=== PATIENT | female | born 2000 | race Caucasian/White ===

== ENCOUNTER 2023-06-27 13:19 | Emergency (ER) | payer OTHER, SELFPAY ==
[2023-06-27 13:23] VITALS: BP 126/85; PULSE 90; RESP 20; TEMP 36.5; O2SAT 100; BMI 35.5
--- NOTE | 2023-06-27 13:34 | ED_ITS ---
HPI - General Adult General Chief complaint: Headache Stated complaint: MIGRAINE Time Seen by Provider: 06/27/23 13:27 Source: patient Mode of arrival: walk-in History of Present Illness HPI narrative: 23-year-old female presents for generalized headache. She states she gets these every month, she states it's hormonal. She's never gone to a neurologist or her family doctor about these. This one is worse than typical. It was not aassocia jocy with any trauma and she has not had a fever. No localized weakness. It's continuous and severe and light makes it worse. Related Data Home Medications Medication Instructions Recorded Confirmed No Known Home Medications 06/27/23 06/27/23 Allergies Allergy/AdvReac Type Severity Reaction Status Date / Time No Known Drug Allergies Allergy Verified 06/27/23 13:26 Review of Systems ROS Narrative A ten point review of systems is negative except as noted above. Exam Narrative Exam Narrative: Nurses note and vital signs reviewed and patient is not hypoxic. General: The patient laying in a darkened room in no apparent respiratory distress. Skin: Warm, dry, no pallor noted. There is no rash noted. Head: Normocephalic, atraumatic; neck supple, no nuchal rigidity Eye: Normal conjunctiva, no drainage, EOMI. PERRL Ears, Nose, Mouth, and Throat: oral mucosa is moist. Nares patent. Cardiovascular: Regular Rate and Rhythm Respiratory: Patient is in no distress, no accessory muscle use, lungs are clear to auscultation, no wheezing, rales or rhonchi Back: non-tender GI: soft and nontender Musculoskeletal: The patient has no evidence of calf tenderness, no pitting edema, symmetrical pulses noted bilaterally Neurological: A&O, normal speech; upper and lower extremity strength intact Psychiatric: Cooperative Constitutional Vital Signs, click to edit/add: Last Vital Signs Temp 97.7 F 06/27/23 13:23 Pulse 77 06/27/23 15:02 Resp 16 06/27/23 15:02 BP 121/76 06/27/23 15:02 Pulse Ox 98 06/27/23 15:02 O2 Del Method Room Air 06/27/23 13:23 Course Vital Signs Vital signs: Vital Signs Temperature 97.7 F 06/27/23 13:23 Pulse Rate 90 06/27/23 13:23 Respiratory Rate 20 06/27/23 13:23 Blood Pressure 126/85 06/27/23 13:23 Pulse Oximetry 100 06/27/23 13:23 Oxygen Delivery Method Room Air 06/27/23 13:23 Temperature 97.7 F 06/27/23 13:23 Pulse Rate 77 06/27/23 15:02 Respiratory Rate 16 06/27/23 15:02 Blood Pressure 121/76 06/27/23 15:02 Pulse Oximetry 98 06/27/23 15:02 Oxygen Delivery Method Room Air 06/27/23 13:23 Medical Decision Making MDM Narrative Medical decision making narrative: her workup including CAT scan of the brain is negative. She feels much better and is able to be discharged home. Treatment diagnosis and follow-up were discussed with the patient. Differential Diagnosis Differential Diagnosis: intracranial hemorrhage, sinusitis, migraine headache Lab Data Lab results reviewed: Yes I reviewed the patient's lab results Labs: Lab Results 06/27/23 Range/Units 13:46 WBC 15.0 H (4.0-11.0) 10^3/uL RBC 5.12 (4.20-5.40) 10^6/uL Hgb 10.9 L (12.0-16.0) g/dL Hct 36.3 (36.0-48.0) % MCV 70.9 L (81.0-99.0) fL MCH 21.3 L (26.7-34.0) pg MCHC 30.0 (29.9-35.2) g/dL RDW 18.6 H (11.0-15.0) % Plt Count 567 H (150-450) 10^3/uL MPV 9.6 (9.5-13.5) fL Neut % (Auto) 84.9 H (43.0-75.0) % Lymph % (Auto) 9.4 L (20.5-60.0) % [place] % (Auto) 3.9 (1.7-12.0) % Eos % (Auto) 0.5 L (0.9-7.0) % Baso % (Auto) 1.0 (0.2-2.0) % Neut # (Auto) 12.7 H (1.4-6.5) 10^3/uL Lymph # (Auto) 1.4 (1.2-3.8) 10^3/uL [place] # (Auto) 0.6 (0.3-0.8) 10^3/uL Eos # (Auto) 0.1 (0.0-0.7) 10^3/uL Baso # (Auto) 0.2 H (0.0-0.1) 10^3/uL Abs Immat Gran (auto) 0.04 H (0.00-0.03) 10^3/uL Imm/Tot Granulo (auto) 0.3 (0.0-0.5) % Sodium 137 (136-145) mmol/L Potassium 3.6 (3.5-5.1) mmol/L Chloride 104 (98-107) mmol/L Carbon Dioxide 24.2 (21.0-32.0) mmol/L Anion Gap 12.4 BUN 14.0 (7.0-18.0) mg/dL Creatinine 0.94 (0.55-1.02) mg/dL Est GFR ( Amer) >60 (>=60) Est GFR (Non-Af Amer) >60 (>=60) BUN/Creatinine Ratio 14.9 Glucose 99 (74-106) mg/dL Calcium 9.3 (8.5-10.1) mg/dL Serum HCG, Qual Negative (NEGATIVE) Imaging Data CT scan - head: Radiologist's impression: ITS Impressions Head CT 06/27/23 13:34 IMPRESSION: No acute intracranial process is noted. Electronically authenticated by: NITHIN CALDWELL Date: 06/27/2023 15:03 Discharge Plan Discharge Chief Complaint: Headache Clinical Impression: Headache Patient Disposition: Home, Self-Care Time of Disposition Decision: 15:26 Condition: Good Mode of Transportation: Private Vehicle Prescriptions / Home Meds: No Action No Known Home Medications Instructions: Acute Headache (ED) Stand Alone Forms: Portal Instructions Referrals: Physician,Non-Staff, MD [Primary Care Provider] - 1 week
--- NOTE | 2023-06-27 13:34 | CT_ITS ---
The [address] [address] Patient Name: LETICIA JOSE MRN: [id number] date: 2000 Sex: F Assigned Patient Location: ER Current Patient Location: ER Accession/Order Number: [id number] Exam Date: 06/27/2023 04:33 Report Date: 06/27/2023 15:03 At the request of: TAURUS SHIELDS Procedure: CT head/brain wo con CT head/brain wo con, 06/27/2023 4:33 AM EST INDICATION: Headache COMPARISON: There is no appropriate prior study for comparison. TECHNIQUE: Axial CT images of the brain from skull base to vertex, including portions of the face and sinuses, were obtained without contrast . Multiplanar reformatted images were generated and reviewed as needed. Dose reduction techniques were achieved by using automated exposure control and/or adjustment of mA and/or kV according to patient size and/or use of iterative reconstruction technique. FINDINGS: The cerebral sulci as well as ventricular system are appropriate for age. There is no intracranial mass, mass effect, midline shift, intra or extra-axial fluid collection or hemorrhage. The visualized portions of orbits, mastoid air cells as well as paranasal sinuses are unremarkable. There is no suspicious osteolytic or osteoblastic lesion. CT/CT head/brain wo con IMPRESSION: No acute intracranial process is noted. Electronically authenticated by: NITHIN CALDWELL Date: 06/27/2023 15:03
[2023-06-27 13:54] LABS: Basophils Absolute Auto 0.2 10^3/uL (0.0-0.1); Eosinophils Absolute Auto 0.1 10^3/uL (0.0-0.7); Eosinophils Percent Auto 0.5 % (0.9-7.0); Hematocrit 36.3 % (36.0-48.0); Hemoglobin 10.9 g/dL (12.0-16.0); Immature Granulocytes Abs Auto 0.04 10^3/uL (0.00-0.03); Immature Granulocytes Pct Auto 0.3 % (0.0-0.5); Lymphocytes Absolute Auto 1.4 10^3/uL (1.2-3.8); Lymphocytes Percent Auto 9.4 % (20.5-60.0); Mean Corpuscular Hemoglobin 21.3 pg (26.7-34.0); Mean Corpuscular Volume 70.9 fL (81.0-99.0); Mean Platelet Volume 9.6 fL (9.5-13.5); Monocytes Absolute Auto 0.6 10^3/uL (0.3-0.8); Monocytes Percent Auto 3.9 % (1.7-12.0); Neutrophils Absolute Auto 12.7 10^3/uL (1.4-6.5); Neutrophils Percent Auto 84.9 % (43.0-75.0); Platelet Count 567 10^3/uL (150-450); Red Blood Count 5.12 10^6/uL (4.20-5.40); Red Cell Distribution Width 18.6 % (11.0-15.0)
[2023-06-27 14:21] LABS: HCG Qualitative NEGATIVE (NEGATIVE)
[2023-06-27 14:24] VITALS: BP 119/79; PULSE 82; RESP 18; O2SAT 98
[2023-06-27 14:29] LABS: BUN Creatinine Ratio 14.9; Calcium 9.3 mg/dL (8.5-10.1); Carbon Dioxide 24.2 mmol/L (21.0-32.0); Estimated GFR (African America >60 (>=60); Estimated GFR (Non-African Ame >60 (>=60); Glucose 99 mg/dL (74-106)
[2023-06-27] MEDS: MORPHINE SULFATE 4 MG/ML VIAL IV (14:44)
[2023-06-27] MEDS: ONDANSETRON PF 4 MG/2 ML VIAL IV (14:44)
[2023-06-27 14:47] LABS: Anion Gap 12.4; Chloride 104 mmol/L (98-107); Potassium 3.6 mmol/L (3.5-5.1); Sodium 137 mmol/L (136-145)
[2023-06-27 14:51] VITALS: BP 128/82; PULSE 84; RESP 18; O2SAT 98
[2023-06-27 15:02] VITALS: BP 121/76; PULSE 77; RESP 16; O2SAT 98
[2023-06-27 15:31] VITALS: BP 115/68; PULSE 71; RESP 18; O2SAT 99
== END 2023-06-27 15:33 | disposition home or self-care (01) ==
PROVIDERS: Emergency Provider Emergency Medicine
DX: R51.9 Headache, unspecified (principal)
CPT/HCPCS: 36415; 70450; 80048; 84703; 85025; 96374; 96375; 99285; J2270; J2405

== ENCOUNTER 2024-01-20 10:31 | Emergency (ER) | payer OTHER, SELFPAY ==
[2024-01-20 10:45] VITALS: BP 110/53; PULSE 88; TEMP 36.6; O2SAT 99; BMI 32.0
--- OUTSIDE RECORDS SUMMARY | 2024-01-20 10:48 | XMS_ITS | CCD ---
Author Organization [facility] Care Team Providers Care Nurse Discharge Name Role Phone CHRISTOPHER ALESSANDRO Consulting Unavailable REQUEST, NONE LISTED Primary Care Unavaila ble CHRISTOPHER, ALESSANDRO Attending Unavailable CHRISTOPHER, ALESSANDRO Admitting Unavailable CHRISTOPHER, ALESSANDRO Consulting Unavailable REQUEST, NONE LISTED Primary Care Unavaila ble CHRISTOPHER, ALESSANDRO Attending Unavailable CHRISTOPHER, ALESSANDRO Admitting Unavailable ZieberNestor Consulting Unavailable KARASIK ., DR SANTANA Consulting Unavailabl e REQUEST, NONE LISTED Primary Care Unavaila ble CHRISTOPHER, ALESSANDRO Attending Unavailable CHRISTOPHER, ALESSANDRO Admitting Unavailable CHRISTOPHER, ALESSANDRO Consulting Unavailable PAMELA SCHILLING Consulting Unavailable CHRISTOPHER, ALESSANDRO Procedure Practitioner Unavailab CATE Torres Consulting Unavailable REQUEST, NONE LISTED Primary Care Unavaila ble CHRISTOPHER, ALESSANDRO Attending Unavailable CHRISTOPHER, ALESSANDRO Admitting Unavailable REQUEST, NONE LISTED Primary Care Unavaila ble CHRISTOPHER, ALESSANDRO Attending Unavailable CHRISTOPHER, ALESSANDRO Admitting Unavailable CHRISTOPHER, ALESSANDRO Consulting Unavailable REQUEST, NONE LISTED Primary Care Unavaila ble CHRISTOPHER, ALESSANDRO Attending Unavailable CHRISTOPHER, ALESSANDRO Admitting Unavailable CHRISTOPHER, ALESSANDRO Consulting Unavailable REQUEST, NONE LISTED Primary Care Unavaila ble CHRISTOPHER, ALESSANDRO Attending Unavailable CHRISTOPHER, ALESSANDRO Admitting Unavailable CHRISTOPHER, ALESSANDRO Consulting Unavailable REQUEST, NONE LISTED Primary Care Unavaila ble CHRISTOPHER, ALESSANDRO Attending Unavailable CHRISTOPHER, ALESSANDRO Admitting Unavailable ZiNestor gonsales Consulting Unavailable CHRISTOPHER, ALESSANDRO Consulting Unavailable REQUEST, NONE LISTED Primary Care Unavaila ble CHRISTOPHER, ALESSANDRO Attending Unavailable CHRISTOPHER, ALESSANDRO Admitting Unavailable WEST, DR RADHA Zambrano Consulting Unavailable REQUEST, NONE LISTED Primary Care Unavaila ble CHRISTOPHER, ALESSANDRO Attending Unavailable CHRISTOPHER, ALESSANDRO Admitting Unavailable CHRISTOPHER, ALESSANDRO Consulting Unavailable Problems Active Problems Problem Classification Problem Date Documented Date Episodic/Chronic distress and abnormal forces of labor (1 source) Primary inadequate contractions; Translations: [PRIMARY INADEQUATE CONTRACTIONS] Onset: 09-24-2022 Episodic Immunizations and screening for infectious disease (5 sources) Contact with and (suspected) exposure to infections with a predominantly sexual mode of transmission; Translations: [CONTCT W EXPOS INFECT SEXUAL TRNSMS] Onset: 07-15-2022 Episodic Malposition; malpresentation (1 source) Maternal care for high head at term, not applicable or unspecified; Translations: [MATERNAL CARE HIGH HEAD TERM NA/UNS] Onset: 09-24-2022 Episodic Menstrual disorders (4 sources) Irregular menstruation, unspecified; Translations: [IRREGULAR MENSTRUATION UNSPECIFIED] Onset: 01-30-2022 Chronic Other complications of ; puerperium affecting management of mother (1 source) Streptococcus B carrier state complicating childbirth; Translations: [STREP B PICHARDO STATE COMP CHILDBIRTH] Onset: 09-24-2022 Episodic Other complications of (4 sources) Maternal care for excessive growth, third trimester, not applicable or unspecified; Translations: [MAT CARE EXCSS FTL GRTH 3RD TRI UNS] Onset: 08-19-2022 Episodic Other female genital disorders (1 source) Other specified noninflammatory disorders of vagina; Translations: [OTH SPEC NONINFLAMMATORY D/O VAGINA] Onset: 08-18-2022 Episodic Other and delivery including normal (20 sources) Encounter for routine follow-up; Translations: [Encounter for supervision of normal , unspecified, third trimester] Onset: 02-17-2022 Episodic Other screening for suspected conditions (not mental disorders or infectious disease) (6 sources) Encounter for screening for diabetes mellitus; Translations: [Encounter for screening, unspecified] Onset: 06-05-2022 Episodic Residual codes; unclassified (1 source) 39 weeks gestation of ; Translations: [39 WEEKS GESTATION OF ] Onset: 09-24-2022 Episodic Residual codes; unclassified (1 source) 37 weeks gestation of ; Translations: [37 WEEKS GESTATION OF ] Onset: 08-23-2022 Episodic Past or Other Problems Problem Classification Problem Date Documented Da te Episodic/Chronic Residual codes; unclassified (1 source) 9 weeks gestation of ; Translations: [9 WEEKS GESTATION OF ] Onset: 02-17-2022 Episodic Results Test Name Value Interpretation Reference Range Facility CBC AUTO DIFFon 08-29-2022 BASO # 0.1 103/ul Normal 0.0-0.[address] [facility] Comment on above: Performed By: #### C BC #### [facility] [address] [address] [address] Lis Oakley Basophils/100 WBC (Bld) 0.3 % Normal 0.2-2.[address] [facility] Comment on above: Performed By: #### C BC #### [facility] [address] [address] [address] Lis Oakley EO # 0.0 103/ul Normal 0.0-0.[address] [facility] Comment on above: Performed By: #### C BC #### [facility] [address] [place] [address] Dr. Lis Oakley Eosinophils/100 WBC (Bld) 0.0 % Critically low 0.9-7.[address] [facility] Comment on above: Performed By: #### C BC #### [facility] [address] [address] [address] Lis Oakley Erythrocyte distribution width (RBC) [Ratio] 15.0 % Normal 11.0-15.[address] [facility] Comment on above: Performed By: #### C BC #### [facility] [address] [address] [address] Lis Oakley Hematocrit (Bld) [Volume fraction] 26.4 % Critically low 36.0-48.[address] [facility] Comment on above: Performed By: #### C BC #### [facility] [address] [address] [address] Lis Oakley Hemoglobin (Bld) [Mass/Vol] 8.1 g/dL Critically low 12.0-16.[address] [facility] Comment on above: Performed By: #### C BC #### [facility] [address] [address] [address] Lis Oakley IG # 0.10 10e3/ul Critically high 0.00-0.03 [facility] Comment on above: Performed By: #### C BC #### [facility] [address] [address] [address] Lis Oakley IG % 0.6 % Critically high 0.0-0.5 [facility] Comment on above: Performed By: #### C BC #### [facility] [address] [address] [address] Lis Oakley LYMPH # 1.0 103/ul Critically low 1.2-3.8 [facility] Comment on above: Performed By: #### C BC #### [facility] [address] [place] [address] Dr. Lis Oakley Lymphocytes/100 WBC (Bld) 5.8 % Critically low 20.5-60.[address] [facility] Comment on above: Performed By: #### C BC #### [facility] [address] [place] [address] Dr. Lis Oakley MANUAL DIFF REQ NO Normal [facility] Comment on above: Performed By: #### C BC #### [facility] [address] [place] [address] Dr. Lis Oakley MCH (RBC) [Entitic mass] 23.8 pg Critically low 26.7-34.[address] [facility] Comment on above: Performed By: #### C BC #### [facility] [address] [place] [address] Dr. Lis Oakley MCHC (RBC) [Mass/Vol] 30.7 g/dL Normal 29.9-35.[address] [facility] Comment on above: Performed By: #### C BC #### [facility] [address] [place] [address] Dr. Lis Oakley MCV (RBC) [Entitic vol] 77.4 fL Critically low 81.0-99.[address] [facility] Comment on above: Performed By: #### C BC #### [facility] [address] [place] [address] Dr. Lis Oakley MONO # 0.7 103/ul Normal 0.3-0.[address] [facility] Comment on above: Performed By: #### C BC #### [facility] [address] [place] [address] Dr. Lis Oakley Monocytes/100 WBC (Bld) 3.9 % Normal 1.7-12.[address] [facility] Comment on above: Performed By: #### C BC #### [facility] [address] [place] [address] Dr. Lis Oakley NEUT # 16.0 103/ul Critically high 1.4-6.5 [facility] Comment on above: Performed By: #### C BC #### [facility] [address] [place] [address] Dr. Lis Oakley Neutrophils/100 WBC (Bld) 89.4 % Critically high 43.0-75.[address] [facility] Comment on above: Performed By: #### C BC #### [facility] [address] [place] [address] Dr. Lis Oakley Platelet mean volume (Bld) [Entitic vol] 10.7 fL Normal 9.5-13.[address] [facility] Comment on above: Performed By: #### C BC #### [facility] [address] [place] [address] Dr. Lis Oakley PLT 271 103/ul Normal 150-[address] [facility] Comment on above: Performed By: #### C BC #### [facility] [address] [place] [address] Dr. Lis Oakley RBC 3.41 106/ul Critically low 4.20-5.40 [facility] Comment on above: Performed By: #### C BC #### [facility] [address] [place] [address] Dr. Lis Oakley WBC 17.9 103/ul Critically high 4.0-11.0 [facility] Comment on above: Performed By: #### C BC #### [facility] [address] [place] [address] Dr. Lis Oakley CBC AUTO DIFFon 08-27-2022 BASO # 0.0 103/ul Normal 0.0-0.[address] [facility] Comment on above: Performed By: #### R UBIGG #### [facility] [address] [address] [address] Lis Oakley Basophils/100 WBC (Bld) 0.4 % Normal 0.2-2.[address] [facility] Comment on above: Performed By: #### R UBIGG #### [facility] [address] [address] [address] Lis Oakley EO # 0.1 103/ul Normal 0.0-0.[address] [facility] Comment on above: Performed By: #### R UBIGG #### [facility] [address] [address] [address] Lis Oakley Eosinophils/100 WBC (Bld) 0.6 % Critically low 0.9-7.[address] [facility] Comment on above: Performed By: #### R UBIGG #### [facility] [address] [place] [address] Dr. Lis Oakley Erythrocyte distribution width (RBC) [Ratio] 14.6 % Normal 11.0-15.[address] [facility] Comment on above: Performed By: #### R UBIGG #### [facility] [address] [place] [address] Dr. Lis Oakley Hematocrit (Bld) [Volume fraction] 30.4 % Critically low 36.0-48.[address] [facility] Comment on above: Performed By: #### R UBIGG #### [facility] [address] [place] [address] Dr. Lis Oakley Hemoglobin (Bld) [Mass/Vol] 9.7 g/dL Critically low 12.0-16.[address] [facility] Comment on above: Performed By: #### R UBIGG #### [facility] [address] [address] [address] Lis Oakley IG # 0.06 10e3/ul Critically high 0.00-0.03 [facility] Comment on above: Performed By: #### R UBIGG #### [facility] [address] [address] [address] Lis Oakley IG % 0.6 % Critically high 0.0-0.5 [facility] Comment on above: Performed By: #### R UBIGG #### [facility] [address] [address] [address] Lis Oakley LYMPH # 1.7 103/ul Normal 1.2-3.[address] [facility] Comment on above: Performed By: #### R UBIGG #### [facility] [address] [address] [address] Lis Oakley Lymphocytes/100 WBC (Bld) 16.3 % Critically low 20.5-60.[address] [facility] Comment on above: Performed By: #### R UBIGG #### [facility] [address] [address] [address] Lis Oakley MANUAL DIFF REQ NO Normal [facility] Comment on above: Performed By: #### R UBIGG #### [facility] [address] [place] [address] Dr. Lis Oakley MCH (RBC) [Entitic mass] 24.3 pg Critically low 26.7-34.[address] [facility] Comment on above: Performed By: #### R UBIGG #### [facility] [address] [place] [address] Dr. Lis Oakley MCHC (RBC) [Mass/Vol] 31.9 g/dL Normal 29.9-35.[address] [facility] Comment on above: Performed By: #### R UBIGG #### [facility] [address] [address] [address] Lis Oakley MCV (RBC) [Entitic vol] 76.0 fL Critically low 81.0-99.[address] [facility] Comment on above: Performed By: #### R UBIGG #### [facility] [address] [place] [address] Dr. Lis Oakley MONO # 0.5 103/ul Normal 0.3-0.[address] [facility] Comment on above: Performed By: #### R UBIGG #### [facility] [address] [address] [address] Lis Oakley Monocytes/100 WBC (Bld) 4.5 % Normal 1.7-12.[address] [facility] Comment on above: Performed By: #### R UBIGG #### [facility] [address] [place] [address] Dr. Lis Oakley NEUT # 7.8 103/ul Critically high 1.4-6.5 [facility] Comment on above: Performed By: #### R UBIGG #### [facility] [address] [place] [address] Dr. Lis Oakley Neutrophils/100 WBC (Bld) 77.6 % Critically high 43.0-75.[address] [facility] Comment on above: Performed By: #### R UBIGG #### [facility] [address] [place] [address] Dr. Lis Oakley Platelet mean volume (Bld) [Entitic vol] 10.2 fL Normal 9.5-13.[address] [facility] Comment on above: Performed By: #### R UBIGG #### [facility] [address] [place] [address] Dr. Lis Oakley PLT 288 103/ul Normal 150-450 [facility] Comment on above: Performed By: #### R UBIGG #### [facility] [address] [place] [address] Dr. Lis Oakley RBC 4.00 106/ul Critically low 4.20-5.40 [facility] Comment on above: Performed By: #### R UBIGG #### [facility] [address] [place] [address] Dr. Lis Oakley WBC 10.1 103/ul Normal 4.0-11.0 [facility] Comment on above: Performed By: #### R UBIGG #### [facility] [address] [place] [address] Dr. Lis Oakley DRUG SCREEN RAPID (URINE)on 08-27-2022 AMP Negative Normal NEGATIVE [facility] Comment on above: Performed By: #### D RUGRPD #### [facility] [address] [place] [address] Dr. Lis Oakley BAR Negative Normal NEGATIVE [facility] Comment on above: Performed By: #### D RUGRPD #### [facility] [address] [place] [address] Dr. Lis Oakley BUP Negative Normal NEGATIVE [facility] Comment on above: Performed By: #### D RUGRPD #### [facility] [address] [place] [address] Dr. Lis Oakley BZO Negative Normal NEGATIVE [facility] Comment on above: Performed By: #### D RUGRPD #### [facility] [address] [place] [address] Dr. Lis Oakley DEBBY Negative Normal NEGATIVE [facility] Comment on above: Performed By: #### D RUGRPD #### [facility] [address] [place] [address] Dr. Lis Oakley CUT-OFFS SEE BELOW Normal [facility] Comment on above: Result Comment: AMP (Amphetamine): 500ng/mL, BAR (Barbituates): 200 ng/mL, BZO (Benzodiazepines): 150 ng/mL, BUP (Buprenorphine): 10 ng/mL, DEBBY (Cocaine): 150 ng/mL, mAMP (Methamphetamine): 500 ng/mL, MTD (Methadone): 200 ng/mL, OPI (Opiates): 100 ng/mL, OXY (Oxycodone): 100 ng/mL, PCP (Phencyclidine): 25 ng/mL, PPX (Propoxyphene): 300 ng/mL, THC (Cannabinoids): 50 ng/mL, TCA (Trycyclic Antidepressants): 300 ng/mL Performed By: #### D RUGRPD #### [facility] [address] [place] [address] Dr. Lis Oakley DRUG CUT HEADER DRUG CLASS TEST SYST EM CUT-OFF CONCENTRATIONS ARE FOLLOWS: Normal [facility] Comment on above: Performed By: #### D RUGRPD #### [facility] [address] [place] [address] Dr. Lis Oakley mAMP Negative Normal NEGATIVE [facility] Comment on above: Performed By: #### D RUGRPD #### [facility] [address] [place] [address] Dr. Lis Oakley MTD Negative Normal NEGATIVE [facility] Comment on above: Performed By: #### D RUGRPD #### [facility] [address] [address] [address] Lis Oakley OPI Negative Normal NEGATIVE [facility] Comment on above: Performed By: #### D RUGRPD #### [facility] [address] [address] [address] Lis Oakley OXY Negative Normal NEGATIVE [facility] Comment on above: Performed By: #### D RUGRPD #### [facility] [address] [address] [address] Lis Oakley PCP Negative Normal NEGATIVE [facility] Comment on above: Performed By: #### D RUGRPD #### [facility] [address] [place] [address] Dr. Lis Oakley PPX Negative Normal NEGATIVE [facility] Comment on above: Performed By: #### D RUGRPD #### [facility] [address] [address] [address] Lis Oakley TCA Negative Normal NEGATIVE [facility] Comment on above: Performed By: #### D RUGRPD #### [facility] [address] [address] [address] Lis Oakley THC Negative Normal NEGATIVE [facility] Comment on above: Performed By: #### D RUGRPD #### [facility] [address] [place] [address] Dr. Lis Oakley TYPE AND SCREENon 08-27-2022 TYPE AND SCREEN Negative Normal [facility] Comment on above: Performed By: #### C BC #### [facility] [address] [place] [address] Dr. Lis Oakley US PREG GROWTHon 08-19-2022 US PREG GROWTH EXAMINATION: US PREG GROWTH HISTORY: Large for gestation age fetus COMPARISON: No relevant comparison available. FINDINGS: Heart Rate: 157.0 bpm Number: 1.0 Position: CEPHALIC Amniotic Fluid Volume: 9.2 cm Maximum Vertical Pocket: 3.8 cm BIOMETRY: BPD: 9.8 cm cm; 40 weeks 1 days; >97% HC: 35.5 cmcm; 41 weeks 3 days; 96% AC: 35.6 cm cm; 39 weeks 4 days; 96% FL: 7.5 cm cm; 38 weeks 2 days; 63% % EFW: 3826.3 grams; 94% FL/AC: 21.0 FL/BPD: 76.3 HC/AC: 1.0 GESTATIONAL AGE: Age by EDC: 37 weeks 6 days [place] by EDC: 09/03/2022 Age by US: 39 weeks 6 days [place] by US: 08/20/2022 IMPRESSION: 1. Single live intrauterine with growth detailed above. 2. BPD, HC, and AC are all 96% or above. Electronically authenticated by: NESTOR NELSON Date: 2022-08-19 16:24 Normal [facility] GROUP B STREP CULTUREon 07-30 S. agalactiae Ag Ql (Unsp spec) Isolate 1 Streptococcus agalactiae Light growth of ORGANISM 1 Streptococcus agalactiae ANTIBIOTIC M.I.C RX STATUS Benzylpenicillin <=0.06 S F Ampicillin <=0.25 S F Cefotaxime <=0.12 S F Ceftriaxone <=0.12 S F Levofloxacin 0.5 S F Inducible Clindamycin Resistance Neg NEG F Erythromycin <=0.12 S F Clindamycin <=0.25 S F Linezolid <=2 S F Vancomycin 0.5 S F Tetracycline >=16 R F Normal [facility] Comment on above: Performed By: #### G BSCX #### [facility] [address] [place] [address] Dr. Lis Oakley CHLAMYDIA/GONOCOCCUS YOMI (SW AB/URINE/PAPon 08-14-2022 Chlamydia trachomatis, YOMI Negative Normal Negative [facility] Comment on above: Performed By: #### C T/NGNA #### [facility] [address] [place] [address] Dr. Lis Oakley Neisseria gonorrhoeae, YOMI Negative Normal Negative [facility] Comment on above: Performed By: #### C T/NGNA #### [facility] [address] [place] [address] Dr. Lis Oakley VAGINITIS/VAGINOSIS DNA PROB Talon 08-14-2022 Marcelle species Negative Normal Negative [facility] Comment on above: Performed By: #### R UBIGG #### [facility] [address] [place] [address] Dr. Lis Oakley Gardnerella vaginalis Negative Normal Negative [facility] Comment on above: Performed By: #### R UBIGG #### [facility] [address] [place] [address] Dr. Lis Oakley Trichomonas vaginalis Negative Normal Negative [facility] Comment on above: Performed By: #### R UBIGG #### [facility] [address] [place] [address] Dr. Lis Oakley HEP B SURFACE ANTIGEN SCREEN on 07-16-2022 HBsAg Screen Negative Normal Negative [facility] Comment on above: Performed By: #### C BC #### [facility] [address] [place] [address] Dr. Lis Oakley HEPATITIS C VIRUS AB W/ REFL EX QUANTon 07-16-2022 HCV AB Non-Reactive Normal Non Reactive [facility] Comment on above: Performed By: #### C BC #### [facility] [address] [place] [address] Dr. Lis Oakley Interpretation: Comment Normal [facility] Comment on above: Result Comment: Not infected with HCV unless early or acute infection is suspected (which may be delayed in an immunocompromised individual), or other evidence exists to indicate HCV infection. Performed By: #### C BC #### [facility] [address] [place] [address] Dr. Lis Oakley HIV 1 AND 2 WITH REFLEXon HIV Screen 4th Generation wRfx Non-Reactive Normal Non Reactive [facility] Comment on above: Result Comment: HIV Negative HIV-1/HIV-2 antibodies and HIV-1 p24 antigen were NOT detected. There is no laboratory evidence of HIV infection. Performed By: #### R UBIGG #### [facility] [address] [place] [address] Dr. Lis Oakley RPR QUANTon 07-16-2022 Rapid Plasma Reagin, Quant Non-Reactive Normal NonRea<1:[address] [facility] Comment on above: Result Comment: Apolinar andrews Note: This test does not meet current guidelines for screening and diagnosis of syphilis. This test is intended for following treatment response in patients being treated for syphilis infection. To screen for syphilis infection, a reflex cascade that includes both RPR and a treponema-specific assay should be utilized, such as Treponema pallidum (Syphilis) Screening [place] (658185) or Rapid Plasma Reagin (RPR) Test With Reflex to Quantitative RPR and Confirmatory Treponema pallidum Antibodies ([id number]). Performed By: #### R PRQ #### [facility] [address] [place] [address] Dr. Lis Oakley RUBELLA AB IGGon 07-16-2022 Rubella Antibodies, IgG 1.94 index Normal Immune >0.[address] [facility] Comment on above: Result Comment: Non- immune <0.90 Equivocal 0.90 - 0.99 Immune >0.99 Performed By: #### R UBIGG #### [facility] [address] [place] [address] Dr. Lis Okaley CBC AUTO DIFFon 07-15-2022 BASO # 0.1 103/ul Normal 0.0-0.[address] [facility] Comment on above: Performed By: #### C BC #### [facility] [address] [place] [address] Dr. Lis Oakley Basophils/100 WBC (Bld) 0.5 % Normal 0.2-2.[address] [facility] Comment on above: Performed By: #### C BC #### [facility] [address] [place] [address] Dr. Lis Oakley EO # 0.2 103/ul Normal 0.0-0.7 [facility] Comment on above: Performed By: #### C BC #### [facility] [address] [place] [address] Dr. Lis Oakley Eosinophils/100 WBC (Bld) 1.6 % Normal 0.9-7.[address] [facility] Comment on above: Performed By: #### C BC #### [facility] [address] [place] [address] Dr. Lis Oakley Erythrocyte distribution width (RBC) [Ratio] 13.7 % Normal 11.0-15.[address] [facility] Comment on above: Performed By: #### C BC #### [facility] [address] [place] [address] Dr. Lis Oakley Hematocrit (Bld) [Volume fraction] 32.0 % Critically low 36.0-48.[address] [facility] Comment on above: Performed By: #### C BC #### [facility] [address] [place] [address] Dr. Lis Oakley Hemoglobin (Bld) [Mass/Vol] 10.1 g/dL Critically low 12.0-16.[address] [facility] Comment on above: Performed By: #### C BC #### [facility] [address] [place] [address] Dr. Lis Oakley IG # 0.09 10e3/ul Critically high 0.00-0.03 [facility] Comment on above: Performed By: #### C BC #### [facility] [address] [place] [address] Dr. Lis Oakley IG % 0.7 % Critically high 0.0-0.5 [facility] Comment on above: Performed By: #### C BC #### [facility] [address] [place] [address] Dr. Lis Oakley LYMPH # 2.4 103/ul Normal 1.2-3.[address] [facility] Comment on above: Performed By: #### C BC #### [facility] [address] [place] [address] Dr. Lis Oakley Lymphocytes/100 WBC (Bld) 19.5 % Critically low 20.5-60.[address] [facility] Comment on above: Performed By: #### C BC #### [facility] [address] [place] [address] Dr. Lis Oakley MANUAL DIFF REQ NO Normal [facility] Comment on above: Performed By: #### C BC #### [facility] [address] [place] [address] Dr. Lis Oakley MCH (RBC) [Entitic mass] 25.6 pg Critically low 26.7-34.[address] [facility] Comment on above: Performed By: #### C BC #### [facility] [address] [place] [address] Dr. Lis Oakley MCHC (RBC) [Mass/Vol] 31.6 g/dL Normal 29.9-35.[address] [facility] Comment on above: Performed By: #### C BC #### [facility] [address] [place] [address] Dr. Lis Oakley MCV (RBC) [Entitic vol] 81.0 fL Normal 81.0-99.[address] [facility] Comment on above: Performed By: #### C BC #### [facility] [address] [place] [address] Dr. Lis Oakley MONO # 0.8 103/ul Normal 0.3-0.[address] [facility] Comment on above: Performed By: #### C BC #### [facility] [address] [place] [address] Dr. Lis Oakley Monocytes/100 WBC (Bld) 6.9 % Normal 1.7-12.[address] [facility] Comment on above: Performed By: #### C BC #### [facility] [address] [place] [address] Dr. Lis Oakley NEUT # 8.6 103/ul Critically high 1.4-6.5 [facility] Comment on above: Performed By: #### C BC #### [facility] [address] [place] [address] Dr. Lis Oakley Neutrophils/100 WBC (Bld) 70.8 % Normal 43.0-75.0 [facility] Comment on above: Performed By: #### C BC #### [facility] [address] [place] [address] Dr. Lis Oakley Platelet mean volume (Bld) [Entitic vol] 10.0 fL Normal 9.5-13.[address] [facility] Comment on above: Performed By: #### C BC #### [facility] [address] [place] [address] Dr. Lis Oakley PLT 315 103/ul Normal 150-450 [facility] Comment on above: Performed By: #### C BC #### [facility] [address] [place] [address] Dr. Lis Oakley RBC 3.95 106/ul Critically low 4.20-5.40 [facility] Comment on above: Performed By: #### C BC #### [facility] [address] [place] [address] Dr. Lis Oakley WBC 12.2 103/ul Critically high 4.0-11.0 [facility] Comment on above: Performed By: #### C BC #### [facility] [address] [place] [address] Dr. Lis Oakley CULTURE URINEon 07-15-2022 CULTURE URINE Culture Observations : MODERATE GROWTH OF MIXED GENITAL DORIAN. NO POTENTIAL PATHOGENS SEEN. Normal [facility] Comment on above: Performed By: #### C BC #### [facility] [address] [place] [address] Dr. Lis Oakley GLYCOHEMOGLOBIN A1Con 2022 ADA RECOMMENDATION SEE BELOW Normal [facility] Comment on above: Result Comment: ADA RECOMMENDED LIMIT 4.0 - 6.0 ADA THERAPEUTIC TARGET < 7.0 ACTION SUGGESTED > 7.0 Performed By: #### C BC #### [facility] [address] [place] [address] Dr. Lis Oakley Glucose [Mass/Vol] 114 mg/dL Normal [facility] Comment on above: Performed By: #### C BC #### [facility] [address] [place] [address] Dr. Lis Oakley HbA1c (Bld) [Mass fraction] 5.6 % Normal 4.5-6.[address] [facility] Comment on above: Performed By: #### C BC #### [facility] [address] [place] [address] Dr. Lis Oakley TYPE AND SCREENon 07-15-2022 TYPE AND SCREEN Negative Normal [facility] Comment on above: Performed By: #### T NS #### [facility] [address] [place] [address] Dr. Lis Oakley CBC AUTO DIFFon 06-17-2022 BASO # 0.1 103/ul Normal 0.0-0.[address] [facility] Comment on above: Performed By: #### C BC #### [facility] [address] [address] [address] Lis Oakley Basophils/100 WBC (Bld) 0.5 % Normal 0.2-2.[address] [facility] Comment on above: Performed By: #### C BC #### [facility] [address] [address] [address] Lis Oakley EO # 0.1 103/ul Normal 0.0-0.[address] [facility] Comment on above: Performed By: #### C BC #### [facility] [address] [place] [address] Dr. Lis Oakley Eosinophils/100 WBC (Bld) 1.3 % Normal 0.9-7.[address] [facility] Comment on above: Performed By: #### C BC #### [facility] [address] [place] [address] Dr. Lis Oakley Erythrocyte distribution width (RBC) [Ratio] 13.9 % Normal 11.0-15.[address] [facility] Comment on above: Performed By: #### C BC #### [facility] [address] [place] [address] Dr. Lis Oakley Hematocrit (Bld) [Volume fraction] 31.8 % Critically low 36.0-48.[address] [facility] Comment on above: Performed By: #### C BC #### [facility] [address] [place] [address] Dr. Lis Oakley Hemoglobin (Bld) [Mass/Vol] 10.3 g/dL Critically low 12.0-16.0 [facility] Comment on above: Performed By: #### C BC #### [facility] [address] [place] [address] Dr. Lis Oakley IG # 0.07 10e3/ul Critically high 0.00-0.03 [facility] Comment on above: Performed By: #### C BC #### [facility] [address] [place] [address] Dr. Lis Oakley IG % 0.7 % Critically high 0.0-0.5 [facility] Comment on above: Performed By: #### C BC #### [facility] [address] [place] [address] Dr. Lis Oakley LYMPH # 1.7 103/ul Normal 1.2-3.8 [facility] Comment on above: Performed By: #### C BC #### [facility] [address] [place] [address] Dr. Lis Oakley Lymphocytes/100 WBC (Bld) 16.0 % Critically low 20.5-60.0 [facility] Comment on above: Performed By: #### C BC #### [facility] [address] [place] [address] Dr. Lis Oakley MANUAL DIFF REQ NO Normal [facility] Comment on above: Performed By: #### C BC #### [facility] [address] [place] [address] Dr. Lis Oakley MCH (RBC) [Entitic mass] 26.7 pg Normal 26.7-34.[address] [facility] Comment on above: Performed By: #### C BC #### [facility] [address] [place] [address] Dr. Lis Oakley MCHC (RBC) [Mass/Vol] 32.4 g/dL Normal 29.9-35.2 [facility] Comment on above: Performed By: #### C BC #### [facility] [address] [place] [address] Dr. Lis Oakley MCV (RBC) [Entitic vol] 82.4 fL Normal 81.0-99.0 [facility] Comment on above: Performed By: #### C BC #### [facility] [address] [place] [address] Dr. Lis Oakley MONO # 0.6 103/ul Normal 0.3-0.8 [facility] Comment on above: Performed By: #### C BC #### [facility] [address] [place] [address] Dr. Lis Oakley Monocytes/100 WBC (Bld) 5.5 % Normal 1.7-12.[address] [facility] Comment on above: Performed By: #### C BC #### [facility] [address] [place] [address] Dr. Lis Oakley NEUT # 8.2 103/ul Critically high 1.4-6.5 [facility] Comment on above: Performed By: #### C BC #### [facility] [address] [place] [address] Dr. Lis Oakley Neutrophils/100 WBC (Bld) 76.0 % Critically high 43.0-75.[address] [facility] Comment on above: Performed By: #### C BC #### [facility] [address] [place] [address] Dr. Lis Oakley Platelet mean volume (Bld) [Entitic vol] 9.6 fL Normal 9.5-13.[address] [facility] Comment on above: Performed By: #### C BC #### [facility] [address] [place] [address] Dr. Lis Oakley PLT 329 103/ul Normal 150-[address] [facility] Comment on above: Performed By: #### C BC #### [facility] [address] [place] [address] Dr. Lis Oakley RBC 3.86 106/ul Critically low 4.20-5.40 [facility] Comment on above: Performed By: #### C BC #### [facility] [address] [place] [address] Dr. Lis Oakley WBC 10.7 103/ul Normal 4.0-11.[address] [facility] Comment on above: Performed By: #### C BC #### [facility] [address] [place] [address] Dr. Lis Oakley GLUCOSE - 1HRon 06-17-2022 Glucose [Mass/Vol] 123 mg/dL Critically high 74-106 T [facility] Comment on above: Performed By: #### R UBIGG #### [facility] [address] [place] [address] Dr. Lis Oakley US PREG ANATOMY SINGLEon 12- 29-2022 US PREG ANATOMY SINGLE EXAMINATION: US PREG ANATOMY SINGLE HISTORY: anatomy study COMPARISON: No relevant comparison available. TECHNIQUE: Transabdominal sonographic examination was performed for obstetrical and evaluation. FINDINGS: Number: 1 Heart Rate: 144.0 bpm H.B. /min Amniotic Fluid Volume: Subjectively normal position: Cephalic presentation, longitudinal lie Placental Location: ANTERIOR, grade 0, placental edge 4.6 cm from the cervical os Cervix Length: 5.3 cm, closed Normal structures: Cerebellum. Choroid plexus. Cisterna magna. Lateral cerebral ventricles. Orbits. Midline falx. Hard palate. 4-chamber heart. RVOT. LVOT. Stomach. Kidneys. Bladder. Umbilical cord insertion into abdomen. 3 vessel cord. Cervical spine. Thoracic spine. Lumbar spine. Sacral spine. Right upper extremity. Left upper extremity. Right lower extremity. Left lower extremity. Suboptimally seen: None. Abnormalities/Other: None BIOMETRY: BPD: 6.6 cm 26 weeks 3 days , 52% HC: 24.5 cm 26 weeks 4 days, 40% AC: 21.8 cm 26 weeks 2 days, 46% FL: 4.9 cm 26 weeks 4 days, 50% EFW:937.6 grams; 2 lbs. 1 oz., 52% FL/AC: 22.6 FL/BPD: 75.2 HC/AC: 1.1 GESTATIONAL AGE: Age by EDC: 26 weeks 1 days [place] by EDC: 09/03/2022 Age by current US: 26 weeks 3 days [place] by current US: 09/01/2022 IMPRESSION: Normal anatomy scan *Reference: [facility] Practice Guideline for the performance of Obstetric Ultrasound Examinations, March 01, 2007. Electronically authenticated by: RADHA ARORA Date: 2022-05-29 16:12 Normal [facility] AFP MATERNAL FOR SPINA BIFID Aon 05-22-2022 AFP MoM See interpretation. Normal [facility] Comment on above: Performed By: #### A FPMAT #### [facility] [address] [address] [address] Lis Oakley AFP Value 71.3 ng/mL Normal [facility] Comment on above: Performed By: #### A FPMAT #### [facility] [address] [address] [address] Lis Oakley AFP, Serum for Spina Bifida Report Normal [facility] Comment on above: Performed By: #### A FPMAT #### [facility] [address] [address] [address] Lis Oakley Comment Comment Normal [facility] Comment on above: Result Comment: Michelle Saldaña, Ph.D., [facility] Director . References: Available Upon Request. . Multiples Of Median Cutoffs For AFP Elevations Brooks 2.5 Black 2.8 IDD 2.0 Twins 4.5 Abbreviation Definitions IDD - Insulin Dep Diabetes OSBR - Open Spina Bifida Risk . For further inquiries contact [employer] at [phone]. . This test was developed and its performance characteristics determined by [employer]. It has not been cleared or approved by the Food and Drug Administration. Performed By: #### A FPMAT #### [facility] [address] [address] [address] Lis Oakley Gest Age Collection Date 24.7 weeks Normal [facility] Comment on above: Performed By: #### A FPMAT #### [facility] [address] [address] [address] Lis Oakley Gestat, Age Based on [place] Normal [facility] Comment on above: Result Comment: 09/2022 Recalculations are not recommended when gestational dating by LMP and ultrasound are within 10 days. Performed By: #### A FPMAT #### [facility] [address] [address] [address] Lis Oakley Insulin Dep Diabetes No Normal [facility] Comment on above: Performed By: #### A FPMAT #### [facility] [address] [address] [address] Lis Oakley Interpretation Comment Normal [facility] Comment on above: Result Comment: Inte rpretation: An interpretation CANNOT be provided for this patient due to one of the following reasons: 1. Gestational age is <15 weeks. Please submit a second sample at the optimum gestational age for screening (16-18 weeks). OR 2. Gestational age is greater than 23 weeks. Performed By: #### A FPMAT #### [facility] [address] [address] [address] Lis Oakley [age][place] [age] Normal [facility] Comment on above: Performed By: #### A FPMAT #### [facility] [address] [address] [address] Lis Oakley Multiple Gestation No Normal [facility] Comment on above: Performed By: #### A FPMAT #### [facility] [address] [address] [address] Lis Oakley OSBR Risk 1 IN See interpretation. Normal [facility] Comment on above: Performed By: #### A FPMAT #### [facility] [address] [place] [address] Dr. Lis Oakley PDF . [facility] Comment on above: Performed By: #### A FPMAT #### [facility] [address] [place] [address] Dr. Lis Oakley Race [facility] Comment on above: Performed By: #### A FPMAT #### [facility] [address] [place] [address] Dr. Lis Oakley Test Results: See interpretation. Normal [facility] Comment on above: Performed By: #### A FPMAT #### [facility] [address] [place] [address] Dr. Lis Oakley US PREG TVon 01-30-2022 US PREG TV EXAMINATION: US PREG TV HISTORY: Missed period COMPARISON: No relevant comparison available. FINDINGS: GESTATIONAL SAC: Present and normal appearing. POLE: Present and normal appearing. YOLK SAC: Present. CARDIAC: Present. UTERUS: Normal size and appearance. OVARIES: Right: Normal. Left: Normal. CERVIX: 3.8 cm in length and closed. CUL-DE-SAC: Normal. OTHER: None. AGE BY LMP: 9 weeks 1 day [place] BY LMP: 09/03/2022 AGE BY US CRL: 8 weeks 6 days [place] BY US CRL: 09/05/2022 IMPRESSION: 1. Single live intrauterine . Electronically authenticated by: NESTOR NELSON Date: 2022-01-30 16:13 Normal [facility] Vital Signs Date Time Vital Sign Value Performing Clinician Nata العلي 05-22-2022 16:07-0500 Body weight 93.4416 kg ALESSANDRO CHRISTOPHER [facility] Comment on above: Performed By: #### A FPMAT #### [facility] [address] [address] [address] Lis Oakley Encounters Encounter Date Encounter Type Care Provider Facility Start: 09-02-2022 End: 09-02-[address] NONE LISTED REQUEST Facility:[facility] Start: 08-27-2022 End: 08-31-2022 Evaluation and management of inpatient DR ESTHER CRAIN . Facility:[facility] Start: 08-19-2022 End: 08-20-2022 ambulatory ALESSANDRO CHRISTOPHER Facility:[facility] Start: 08-13-2022 End: 08-13-2022 ambulatory ALESSANDRO CHRISTOPHER Facility:[facility] Start: 07-15-2022 End: 07-16-2022 ambulatory ALESSANDRO CHRISTOPHER Facility:[facility] Start: 06-17-2022 End: 06-18-2022 ambulatory ALESSANDROCj GREER Facility:[facility] Start: 05-29-2022 End: 05-30-[address] RADHA ARORA Facility:[facility] Start: 05-19-2022 End: 05-20-2022 ambulatory ALESSANDRO CHRISTOPHER Facility:[facility] Start: 02-06-2022 ambulatory NONE LISTED REQUEST Facility:[facility] Start: 01-30-2022 End: 01-31-2022 ambulatory ALESSANDRO CHRISTOPHER Facility: Procedures Date Procedure Procedure Detail Performing Clinician Start: 08-28-2022 Extraction of Produc ts of Conception, Low Cervical, Open Approach ALESSANDRO CHRISTOPHER Start: 08-28-2022 Drainage of Amniotic Fluid, Therapeutic from Products of Conception, Via Natural or Artificial Opening ALESSANDRO CHRISTOPHER Start: 08-27-2022 Introduction of Othe r Hormone into Peripheral Vein, Percutaneous Approach ALESSANDRO CHRISTOPHER Payers Date Payer Category Payer Unknown [id number] 2.16.84 [id number] 2000 Unknown [id number] 2.16.84 [id number] 2000 Unknown [id number] 2.16.84 [id number] 2000 Unknown [id number] 2.16.84 [id number] 2000 Unknown [id number] 2.16.84 [id number] 2000 Unknown [id number] 2.16.84 [id number] 2000 Unknown [id number] 2.16.84 [id number] 2000 Unknown [id number] 2.16.84 [id number] 2000 Unknown [id number] 2.16.84 [id number] 2000 Unknown [id number] 2.16.84 [id number] 1959 Self-pay 1959 Unknown [id number] 1959 Unknown [id number] Clinical Note 08-27-2022 Note Date & Type Note Facility 08-27-2022 Note OPERATIVE NOTE OPERATION DATE: 08/28/2022 PROCEDURE: Primary low transverse section. PREOPERATIVE DIAGNOSIS: 1. Intrauterine at 39 weeks. 2. Failure to dilate. 3. Failure to descend. POSTOPERATIVE DIAGNOSIS: 1. Intrauterine at 39 weeks. 2. Failure to dilate. 3. Failure to descend. ANESTHESIA: Spinal. SURGEON: Alessandro Greer D.O. SALES MANAGER: GABY Lou URINE OUTPUT: Yellow and clear. BLOOD LOSS: 600 mL. SPECIMEN: Placenta. FINDINGS: Viable male. Apgars 9 at 1, 10 at 5. Weight unknown at this time. PROCEDURE: Patient was taken back to the Operating Room where she was given a spinal anesthesia with Duramorph without difficulty. She was prepped and draped in the normal sterile fashion. A Pfannenstiel skin incision was then made 2 cm above the symphysis pubis and carried down to underlying rectus fascia using a Bovie. The fascia was incised in the midline and extended laterally using Leslie scissors. Two Prabha clamps were placed on the superior aspect of the fascia and dissected off the underlying rectus muscles. The same was performed on the inferior aspect as well. The muscles were then in the midline. Peritoneum was identified and entered bluntly. The peritoneum was then extended superiorly and inferiorly with good visualization of the bladder. The bladder blade was inserted. Vesicouterine peritoneum was identified, tented up, and entered with Metzenbaum scissors. A bladder flap was then created digitally. The bladder blade was reinserted. A low transverse incision was made on the patient's uterus and extended laterally digitally. The infant was then delivered atraumatically after the bladder blade was removed in the cephalic position. The cord was clamped and cut. Cord blood was obtained. The infant was handed off to awaiting team. The patient's placenta was spontaneously delivered. The uterus was then exteriorized. The uterus was cleared of all clots and debris. The bladder blade was reinserted. The patient's uterine incision was closed using #0 Vicryl in a running lock fashion. Excellent hemostasis was assured. The uterus was then returned to the patient's abdomen. The patient's abdomen was copiously irrigated using warm saline. Peritoneal gutters were cleared of all clots and debris. Again excellent hemostasis was assured. The patient's peritoneum was closed using 3-0 Vicryl in a running fashion. The patient's fascia was closed using #0 Vicryl in a running fashion. The patient's skin was closed using 4-0 Vicryl subcuticularly. The patient tolerated the procedure well. Sponge, lap, and needle counts were correct x2. The patient was taken to the Recovery Room in stable condition. [facility] Discharge summary note 08-27-2022 Note Date & Type Note Facility 08-27-2022 Note DISCHARGE SUMMARY NOTE DATE: 09/18/2022 PRIMARY DIAGNOSES: 1. Intrauterine at 39 weeks. 2. Failure to descend. 3. Failure to dilate. PROCEDURE: Primary low transverse section. HOSPITAL COURSE: As expected. Please see chart for full details. LABORATORY DATA: Please see chart. COMPLICATIONS: None. DISCHARGE CONDITION: Stable. CONSULTATION: Anesthesia. DISCHARGE INSTRUCTIONS: 1.Diet: Regular. 2.Medications: a.Percocet 5/325 one to two p.o. every 4-6 hours p.r.n. pain. b.Motrin 800 one p.o. every 8 hours p.r.n. pain. 3.Followup in one week. Restrictions: Pelvic rest for 6 weeks. No heavy lifting. May drive when pain free and no longer on narcotics. [facility] Summary Purpose Family History No Family History Records Found Advance Directives No Advanced Directives Records Found Additional Source Comments INFORMATION SOURCE (unrecogn ized section and content) DATE CREATED AUTHOR 09/25/2022 The [facility] FOR RECORDS PERTAINING TO PATIENTS WHO ARE OR HAVE BEEN ENROLLED IN A CHEMICAL DEPENDENCY/SUBSTANCEABUSE PROGRAM, SOME INFORMATION MAY BE OMITTED. This clinical summary was aggregated from multiple sources. Caution should be exercised in using it in the provision of clinical care. This summary normalizes information from multiple sources, and as a consequence, information in this document may materially change the coding, format and clinical context of patient data. In addition, data may be omitted in some cases. CLINICAL DECISIONS SHOULD BE BASED ON THE PRIMARY CLINICAL RECORDS. [facility] [facility]. provides no warranty or guarantee of the accuracy or completeness of information in this document.
[2024-01-20] MEDS: ONDANSETRON PF 4 MG/2 ML VIAL IV (10:51)
--- NOTE | 2024-01-20 10:53 | PC.NURSE ---
pt started having her migraine aura of speckled spots in her vision about 2 hours ago -- h/o migraines since she was 12. Takes fioricet at home as rescue med, but states it doesn't help. Pt is very nauseous
[2024-01-20] MEDS: 0.9 % SODIUM CHLORIDE 1,000 ML 1000 ML IV (10:58)
--- NOTE | 2024-01-20 11:05 | ED.GENADUL1 ---
HPI HPI - General Adult General Chief complaint: Headache Stated complaint: HEADACHE Time Seen by Provider: 01/20/24 10:45 Source: patient and family Mode of arrival: walk-in Limitations: no limitations History of Present Illness HPI narrative: Patient is a 23-year-old female who is presenting to the ER today with chief complaint of bilateral frontal headache. Patient was at work today, patient had the onset of the headache at work that slowly gradually been getting worse. Patient had several episodes of nausea vomiting. This is typical with patient's headaches/migraines in the past. Last time she had a headache or migraine was a few months ago. Patient did have Fioricet to help as a rescue medication, it is not working today. Last time patient had to come to the ER for headache was over a year ago. Patient started her last menses on December 31, patient does not believe that she is . Patient is having unprotected sex, the patient does not believe she is . Patient has no neck pain, chest pain, shortness of breath. No abdominal pain with her nausea and vomiting. No difficulty using arms or legs, no other acute complaints. All systems are negative except as noted/marked. All systems reviewed and otherwise negative. Nurses note and vital signs reviewed and patient is not hypoxic. General: The patient appears well and in no apparent distress. Patient is resting uncomfortably on cart. Patient is sitting forward, eyes closed, patient looks pale. Patient is not toxic, lethargic, or listless Skin: Warm, dry, no pallor noted. There is no rash noted. No petechiae, purpura. Head: Normocephalic, atraumatic, no significant reproducible tenderness to palpation to bilateral frontal, maxillary sinuses. Eye: Normal conjunctiva, no drainage, EOMI. PERRL Ears, Nose, Mouth, and Throat: oral mucosa is moist. Nares patent. Mouth without vesicles. Cardiovascular: Regular Rate and Rhythm, no murmur, gallop, rub Respiratory: Patient is in no distress, no accessory muscle use, lungs are clear to auscultation, no wheezing, rales or rhonchi Back: non-tender, GI: Soft, no tenderness Musculoskeletal: Patient has full range of motion of all of the extremities, no motor, sensory, or focal neurological deficits Neurological: A&O x4, normal speech Psychiatric: Cooperative Related Data Previous Rx's ?Medication ?Instructions ?Recorded lggrnrawgl-iswbojidwlsgd-hgzfbuyy 1 cap PO Q6H PRN headache 5 days 06/27/23 50 mg-300 mg-40 mg capsule #20 caps (Fioricet) ondansetron 4 mg disintegrating 4 mg PO Q4H PRN nausea and 01/20/24 tablet vomiting 3 days #6 tabs prochlorperazine maleate 10 mg 10 mg PO Q8H PRN nausea and 01/20/24 tablet (Compazine) vomiting 3 days #10 tabs Allergies Allergy/AdvReac Type Severity Reaction Status Date / Time No Known Drug Allergies Allergy Verified 06/27/23 13:26 Opioid HPI Opioid Management Most Recent Opioid Data: Last Pain Scale 0 06/27/23 15:02 Last MAR Pain Assessment 01/20/24 11:14 Exam Constitutional Vital Signs, click to edit/add: Last Vital Signs Temp 98 F 01/20/24 10:45 Pulse 88 01/20/24 10:45 Resp 14 01/20/24 10:45 BP 110/53 01/20/24 10:45 Pulse Ox 99 01/20/24 10:45 O2 Del Method Room Air 01/20/24 10:45 Course Vital Signs Vital signs: Vital Signs Temperature 98 F 01/20/24 10:45 Pulse Rate 88 01/20/24 10:45 Respiratory Rate 14 01/20/24 10:45 Blood Pressure 110/53 01/20/24 10:45 Pulse Oximetry 99 01/20/24 10:45 Oxygen Delivery Method Room Air 01/20/24 10:45 Temperature 98 F 01/20/24 10:45 Pulse Rate 88 01/20/24 10:45 Respiratory Rate 14 01/20/24 10:45 Blood Pressure 110/53 01/20/24 10:45 Pulse Oximetry 99 01/20/24 10:45 Oxygen Delivery Method Room Air 01/20/24 10:45 Medical Decision Making MDM Narrative Medical decision making narrative: Patient wanted medication, we discussed the risks and benefits again Toradol with possibility of urine. We decided to give Toradol along with the other medications that are safe for if she was but she does not believe so. Patient was given 1 L of IV fluid, Zofran, Decadron, Compazine and Toradol. Mother at bedside. 1235 patient's pain is down to a 5/10. When she arrived it was a 12/10. Patient's nauseous much improved. Patient will be prescribed Zofran, Compazine. Patient has Fioricet at home. Patient will follow[facility] with [facility] and establish care, she is also given PCP name and number to establish as well. Work note given. Discharge Plan Discharge Stand Alone Forms: Work/School Release, Portal Instructions Chief Complaint: Headache Clinical Impression: Headache, Nausea & vomiting Patient Disposition: Home, Self-Care Time of Disposition Decision: 12:33 Condition: Fair Prescriptions / Home Meds: New prochlorperazine maleate [Compazine] 10 mg tablet 10 mg PO Q8H PRN (Reason: nausea and vomiting) 3 Days Qty: 10 0RF ondansetron 4 mg tablet,disintegrating 4 mg PO Q4H PRN (Reason: nausea and vomiting) 3 Days Qty: 6 0RF No Action zkktctfkub-zmdpnzavwcjwb-hiil [Fioricet] 50-300-40 mg capsule 1 cap PO Q6H PRN (Reason: headache) 5 Days Qty: 20 0RF Print Language: Uruguayan Instructions: Acute Nausea and Vomiting (ED), General Headache (ED) Additional Instructions: Increase fluids at home. Use Zofran as needed for nausea, Use Compazine as needed for nausea and vomiting and headache. Referrals: Michelle Boone DO [Physician] - 1 week Physician,Non-Staff, [Primary Care Provider] - 1 week Shaikh Morales MD [Physician] - 1 week
[2024-01-20] MEDS: KETOROLAC TROMETHAMINE 30 MG/ML VIAL 15 MG IVP (11:14)
[2024-01-20] MEDS: DEXAMETHASONE SOD PHOS 10 MG/ML VIAL IV (11:15)
[2024-01-20] MEDS: PROCHLORPERAZINE 10 MG/2 ML VIAL IV (11:15)
== END 2024-01-20 12:40 | disposition home or self-care (01) ==
PROVIDERS: Emergency Provider Emergency Medicine
DX: R51.9 Headache, unspecified (principal); R11.2 Nausea with vomiting, unspecified
CPT/HCPCS: 96361; 96374; 96375; 99284; J0780; J1100; J1885; J2405

== ENCOUNTER 2024-05-17 17:19 | Emergency (ER) | payer OTHER, SELFPAY ==
[2024-05-17 17:23] VITALS: BP 131/85; PULSE 88; TEMP 36.7; O2SAT 98; BMI 28.3
--- NOTE | 2024-05-17 17:34 | ED_ITS ---
HPI HPI - General Adult General Chief complaint: Abdominal Pain Stated complaint: vaginal bleeding Time Seen by Provider: 05/17/24 17:30 Source: patient Mode of arrival: walk-in Limitations: no limitations History of Present Illness HPI narrative: 24-year-old female presents for vaginal bleeding. She states she is 10 weeks based on her last period. She has not yet seen her [facility] during this but has an appointment in 2 days. 30 minutes ago she was standing at work and felt a gush of blood. No abdominal pain or cramping and she has had no spotting or bleeding recently. She is 2 para 1. Related Data Home Medications ?Medication ?Instructions ?Recorded ?Confirmed No Known Home Medications 05/17/24 05/17/24 Allergies Allergy/AdvReac Type Severity Reaction Status Date / Time No Known Drug Allergies Allergy Verified 05/17/24 17:27 Opioid HPI Opioid Management Most Recent Opioid Data: Last Pain Scale 0 06/27/23 15:02 06/27/23 Review of Systems ROS Narrative A ten point review of systems is negative except as noted above. PFSH PFSH Social History Little interest or pleasure in doing things: not at all Feeling down, depressed, or hopeless: not at all Exam Narrative Exam Narrative: Nurses note and vital signs reviewed and patient is not hypoxic. General: The patient appears well and in no apparent distress. Patient is resting comfortably on cart. Skin: Warm, dry, no pallor noted. There is no rash noted. Head: Normocephalic, atraumatic Eye: Normal conjunctiva, no drainage Ears, Nose, Mouth, and Throat: oral mucosa is moist. Nares patent. Cardiovascular: Regular Rate and Rhythm Respiratory: Patient is in no distress, no accessory muscle use, lungs are clear to auscultation, no wheezing, rales or rhonchi Back: non-tender GI: Soft and nontender Musculoskeletal: The patient has no evidence of calf tenderness, no pitting edema, symmetrical pulses noted bilaterally Neurological: A&O, normal speech Psychiatric: Cooperative Constitutional Vital Signs, click to edit/add: Last Vital Signs Temp 98.0 F 05/17/24 17:23 Pulse 88 05/17/24 17:23 Resp 18 05/17/24 17:23 BP 131/85 05/17/24 17:23 Pulse Ox 98 05/17/24 17:23 O2 Del Method Room Air 12/17/24 17:23 Course Vital Signs Vital signs: Vital Signs Temperature 98.0 F 05/17/24 17:23 Pulse Rate 88 05/17/24 17:23 Respiratory Rate 18 05/17/24 17:23 Blood Pressure 131/85 05/17/24 17:23 Pulse Oximetry 98 05/17/24 17:23 Oxygen Delivery Method Room Air 05/17/24 17:23 Temperature 98.0 F 05/17/24 17:23 Pulse Rate 88 05/17/24 17:23 Respiratory Rate 18 05/17/24 17:23 Blood Pressure 131/85 05/17/24 17:23 Pulse Oximetry 98 05/17/24 17:23 Oxygen Delivery Method Room Air 05/17/24 17:23 Medical Decision Making MDM Narrative Medical decision making narrative: Tests are ordered and the patient is signed out to Dr. Harris at change of shift. Concern is for ectopic versus miscarriage. Lab Data Lab results reviewed: Yes I reviewed the patient's lab results Labs: Lab Results 05/17/24 Range/Units 18:15 WBC 11.8 H (4.0-11.0) 10^3/uL RBC 4.86 (4.20-5.40) 10^6/uL Hgb 11.6 L (12.0-16.0) g/dL Hct 36.9 (36.0-48.0) % MCV 75.9 L (81.0-99.0) fL MCH 23.9 L (26.7-34.0) pg MCHC 31.4 (29.9-35.2) g/dL RDW 16.9 H (11.0-15.0) % Plt Count 450 (150-450) 10^3/uL MPV 10.0 (9.5-13.5) fL Neut % (Auto) 73.6 (43.0-75.0) % Lymph % (Auto) 19.0 L (20.5-60.0) % [place] % (Auto) 5.7 (1.7-12.0) % Eos % (Auto) 0.8 L (0.9-7.0) % Baso % (Auto) 0.6 (0.2-2.0) % Neut # (Auto) 8.7 H (1.4-6.5) 10^3/uL Lymph # (Auto) 2.2 (1.2-3.8) 10^3/uL [place] # (Auto) 0.7 (0.3-0.8) 10^3/uL Eos # (Auto) 0.1 (0.0-0.7) 10^3/uL Baso # (Auto) 0.1 (0.0-0.1) 10^3/uL Abs Immat Gran (auto) 0.03 (0.00-0.03) 10^3/uL Imm/Tot Granulo (auto) 0.3 (0.0-0.5) % Discharge Plan Discharge Patient Disposition: Still a Patient
[2024-05-17 18:20] LABS: Basophils Absolute Auto 0.1 10^3/uL (0.0-0.1); Basophils Percent Auto 0.6 % (0.2-2.0); Eosinophils Absolute Auto 0.1 10^3/uL (0.0-0.7); Eosinophils Percent Auto 0.8 % (0.9-7.0); Hematocrit 36.9 % (36.0-48.0); Hemoglobin 11.6 g/dL (12.0-16.0); Immature Granulocytes Abs Auto 0.03 10^3/uL (0.00-0.03); Immature Granulocytes Pct Auto 0.3 % (0.0-0.5); Lymphocytes Absolute Auto 2.2 10^3/uL (1.2-3.8); Mean Corpuscular HGB Conc 31.4 g/dL (29.9-35.2); Mean Corpuscular Hemoglobin 23.9 pg (26.7-34.0); Mean Corpuscular Volume 75.9 fL (81.0-99.0); Monocytes Absolute Auto 0.7 10^3/uL (0.3-0.8); Monocytes Percent Auto 5.7 % (1.7-12.0); Neutrophils Absolute Auto 8.7 10^3/uL (1.4-6.5); Neutrophils Percent Auto 73.6 % (43.0-75.0); Platelet Count 450 10^3/uL (150-450); Red Blood Count 4.86 10^6/uL (4.20-5.40); Red Cell Distribution Width 16.9 % (11.0-15.0); White Blood Count 11.8 10^3/uL (4.0-11.0)
[2024-05-17 18:56] LABS: Anion Gap 16.4; BUN Creatinine Ratio 12.7; Calcium 9.2 mg/dL (8.5-10.1); Carbon Dioxide 25.2 mmol/L (21.0-32.0); Chloride 101 mmol/L (98-107); Estimated GFR (African America >60 (>=60 mL/min/1.73m^2); Estimated GFR (Non-African Ame >60 (>=60 mL/min/1.73m^2); Glucose 89 mg/dL (74-106); HCG Quantitative 60689 mIU/mL; Potassium 3.6 mmol/L (3.5-5.1); Sodium 139 mmol/L (136-145)
--- NOTE | 2024-05-17 20:09 | US_ITS ---
The [address] [address] Patient Name: LETICIA JOSE MRN: [id number] date: 2000 Sex: F Assigned Patient Location: ER Current Patient Location: ER Accession/Order Number: [id number] Exam Date: 05/17/2024 20:18 Report Date: 05/17/2024 22:14 At the request of: JR CORDOVA Procedure: US OB transvaginal EXAM: US OB transvaginal HISTORY: , vaginal bleeding COMPARISON: None. TECHNIQUE: Transvaginal real-time grayscale and color Doppler imaging with pulsed duplex sonography was performed. FINDINGS: UTERUS: Anteverted. Intrauterine with crown-rump length measurement of 3.28 centimeters corresponding to a sonographic gestational age of 10 weeks and 1 day. heart rate detected measuring 186 with a small amount of beats per minute. Cervix is noted to be closed with a small amount of endocervical fluid, cervical length measures 2.6 centimeters. [place] of 12/12/2024 OVARIES: Bilateral ovaries are normal in size and echogenicity. Right ovary measures 3.4 by 2.2 by 3.4 cm. Left ovary measures 2.7 by 1.6 by 2 cm. Ovaries demonstrate color Doppler flow and appropriate spectral waveforms. MISCELLANEOUS: No significant free fluid. US/US OB transvaginal IMPRESSION: Intrauterine with sonographic gestational age of 10 weeks and 1 day. [place] of 12/12/2024. heart rate of 186 beats per minute. Electronically authenticated by: JEAN MOCK Date: 05/17/2024 22:14
--- NOTE | 2024-05-17 20:56 | PC.NURSE ---
Pt had a dime-sized amount of dark red blood on the chux underneath her, and did have a tiny amount during the US. No further bleeding noted at this time.
[2024-05-17 22:37] VITALS: BP 110/79; PULSE 78; O2SAT 99
== END 2024-05-17 22:41 | disposition home or self-care (01) ==
PROVIDERS: Emergency Provider Emergency Medicine
DX: O20.9 Hemorrhage in early pregnancy, unspecified (principal); Z3A.10 10 weeks gestation of pregnancy
CPT/HCPCS: 36415; 76817; 80048; 84702; 85025; 86900; 86901; 99285

== ENCOUNTER 2024-05-19 13:00 | Outpatient (OUT) | payer OTHER, SELFPAY ==
--- NOTE | 2024-05-19 13:01 | US_ITS ---
[address] [address] Patient Name: LETICIA JOSE MRN: [id number] date: 2000 Sex: F Assigned Patient Location: [facility] Current Patient Location: Accession/Order Number: [id number] Exam Date: 05/19/2024 13:01 Report Date: 05/20/2024 11:34 At the request of: ALESSANDRO WHITE Procedure: US pelvis transvaginal EXAMINATION: US pelvis transvaginal HISTORY: VAGINAL BLEEDING THREATENED COMPARISON: No relevant comparison available. FINDINGS: No intrauterine or ectopic is observed The uterus is normal, anteverted The endometrium measures 1.3 cm. The right ovary measures 3.0 x 1.8 x 2.3 cm. 2.6 cm cyst. The left ovary measures 2.8 x 1.6 x 3.5 cm The cervix measures 3.7 cm, closed US/US pelvis transvaginal IMPRESSION: No intrauterine or ectopic observed. Electronically authenticated by: RADHA ARORA Date: 05/20/2024 11:34
--- OUTSIDE RECORDS SUMMARY | 2024-05-19 13:17 | XMS_ITS | CCD ---
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 Lis Oakley Basophils/100 WBC (Bld) 0.3 % Normal 0.2-2.0 [facility] Comment on above: Performed By: #### C BC #### [facility] [address] [address] [address] Lis Oakley EO # 0.0 103/ul Normal 0.0-0.7 [facility] Comment on above: Performed By: #### C BC #### [facility] [address] [place] [address] Dr. Lis Oakley Eosinophils/100 WBC (Bld) 0.0 % Critically low 0.9-7.0 [facility] Comment on above: Performed By: #### C BC #### [facility] [address] [address] [address] Lis Oakley Erythrocyte distribution width (RBC) [Ratio] 15.0 % Normal 11.0-15.0 [facility] Comment on above: Performed By: #### C BC #### [facility] [address] [address] [address] Lis Oakley Hematocrit (Bld) [Volume fraction] 26.4 % Critically low 36.0-48.0 [facility] Comment on above: Performed By: #### C BC #### [facility] [address] [address] [address] Lis Oakley Hemoglobin (Bld) [Mass/Vol] 8.1 g/dL Critically low 12.0-16.0 [facility] Comment on above: Performed By: #### C BC #### [facility] [address] [address] [address] Lis Oakley IG # 0.10 10e3/ul Critically high 0.00-0.03 [facility] Comment on above: Performed By: #### C BC #### [facility] [address] [address] [address] Lis Oakley IG % 0.6 % Critically high 0.0-0.5 [facility] Comment on above: Performed By: #### C BC #### [facility] [address] [address] [address] Lis Oakley LYMPH # 1.0 103/ul Critically low 1.2-3.8 [facility] Comment on above: Performed By: #### C BC #### [facility] [address] [place] [address] Dr. Lis Oakley Lymphocytes/100 WBC (Bld) 5.8 % Critically low 20.5-60.0 [facility] Comment on above: Performed By: #### C BC #### [facility] [address] [place] [address] Dr. Lis Oakley MANUAL DIFF REQ NO Normal [facility] Comment on above: Performed By: #### C BC #### [facility] [address] [place] [address] Dr. Lis Oakley MCH (RBC) [Entitic mass] 23.8 pg Critically low 26.7-34.0 [facility] Comment on above: Performed By: #### C BC #### [facility] [address] [place] [address] Dr. Lis Oakley MCHC (RBC) [Mass/Vol] 30.7 g/dL Normal 29.9-35.2 [facility] Comment on above: Performed By: #### C BC #### [facility] [address] [place] [address] Dr. Lis Oakley MCV (RBC) [Entitic vol] 77.4 fL Critically low 81.0-99.0 [facility] Comment on above: Performed By: #### C BC #### [facility] [address] [place] [address] Dr. Lis Oakley MONO # 0.7 103/ul Normal 0.3-0.8 [facility] Comment on above: Performed By: #### C BC #### [facility] [address] [place] [address] Dr. Lis Oakley Monocytes/100 WBC (Bld) 3.9 % Normal 1.7-12.0 [facility] Comment on above: Performed By: #### C BC #### [facility] [address] [place] [address] Dr. Lis Oakley NEUT # 16.0 103/ul Critically high 1.4-6.5 [facility] Comment on above: Performed By: #### C BC #### [facility] [address] [place] [address] Dr. Lis Oakley Neutrophils/100 WBC (Bld) 89.4 % Critically high 43.0-75.0 [facility] Comment on above: Performed By: #### C BC #### [facility] [address] [place] [address] Dr. Lis Oakley Platelet mean volume (Bld) [Entitic vol] 10.7 fL Normal 9.5-13.5 [facility] Comment on above: Performed By: #### C BC #### [facility] [address] [place] [address] Dr. Lis Oakley PLT 271 103/ul Normal 150-450 [facility] Comment on above: Performed By: #### C BC #### [facility] [address] [place] [address] Dr. Lis Oakley RBC 3.41 106/ul Critically low 4.20-5.40 [facility] Comment on above: Performed By: #### C BC #### [facility] [address] [place] [address] Dr. Lis Oakley WBC 17.9 103/ul Critically high 4.0-11.0 [facility] Comment on above: Performed By: #### C BC #### [facility] [address] [place] [address] Dr. Lis Oakley CBC AUTO DIFFon 08-27-2022 BASO # 0.0 103/ul Normal 0.0-0.1 [facility] Comment on above: Performed By: #### R UBIGG #### [facility] [address] [address] [address] Lis Oakley Basophils/100 WBC (Bld) 0.4 % Normal 0.2-2.0 [facility] Comment on above: Performed By: #### R UBIGG #### [facility] [address] [address] [address] Lis Oakley EO # 0.1 103/ul Normal 0.0-0.7 [facility] Comment on above: Performed By: #### R UBIGG #### [facility] [address] [address] [address] Lis Oakely Eosinophils/100 WBC (Bld) 0.6 % Critically low 0.9-7.0 [facility] Comment on above: Performed By: #### R UBIGG #### [facility] [address] [place] [address] Dr. Lis Oakley Erythrocyte distribution width (RBC) [Ratio] 14.6 % Normal 11.0-15.0 [facility] Comment on above: Performed By: #### R UBIGG #### [facility] [address] [place] [address] Dr. Lis Oakley Hematocrit (Bld) [Volume fraction] 30.4 % Critically low 36.0-48.0 [facility] Comment on above: Performed By: #### R UBIGG #### [facility] [address] [place] [address] Dr. Lis Oakley Hemoglobin (Bld) [Mass/Vol] 9.7 g/dL Critically low 12.0-16.0 [facility] Comment on above: Performed By: #### R UBIGG #### [facility] [address] [address] [address] Lis Oakley IG # 0.06 10e3/ul Critically high 0.00-0.03 [facility] Comment on above: Performed By: #### R UBIGG #### [facility] [address] [address] [address] Lis Oakley IG % 0.6 % Critically high 0.0-0.5 [facility] Comment on above: Performed By: #### R UBIGG #### [facility] [address] [address] [address] Lis Oakley LYMPH # 1.7 103/ul Normal 1.2-3.8 [facility] Comment on above: Performed By: #### R UBIGG #### [facility] [address] [address] [address] Lis Oakley Lymphocytes/100 WBC (Bld) 16.3 % Critically low 20.5-60.0 [facility] Comment on above: Performed By: #### R UBIGG #### [facility] [address] [address] [address] Lis Oakley MANUAL DIFF REQ NO Normal [facility] Comment on above: Performed By: #### R UBIGG #### [facility] [address] [place] [address] Dr. Lis Oakley MCH (RBC) [Entitic mass] 24.3 pg Critically low 26.7-34.0 [facility] Comment on above: Performed By: #### R UBIGG #### [facility] [address] [place] [address] Dr. Lis Oakley MCHC (RBC) [Mass/Vol] 31.9 g/dL Normal 29.9-35.2 [facility] Comment on above: Performed By: #### R UBIGG #### [facility] [address] [address] [address] Lis Oakely MCV (RBC) [Entitic vol] 76.0 fL Critically low 81.0-99.0 [facility] Comment on above: Performed By: #### R UBIGG #### [facility] [address] [place] [address] Dr. Lis Oakley MONO # 0.5 103/ul Normal 0.3-0.8 [facility] Comment on above: Performed By: #### R UBIGG #### [facility] [address] [address] [address] Lis Oakley Monocytes/100 WBC (Bld) 4.5 % Normal 1.7-12.0 [facility] Comment on above: Performed By: #### R UBIGG #### [facility] [address] [place] [address] Dr. Lis Oakley NEUT # 7.8 103/ul Critically high 1.4-6.5 [facility] Comment on above: Performed By: #### R UBIGG #### [facility] [address] [place] [address] Dr. Lis Oakley Neutrophils/100 WBC (Bld) 77.6 % Critically high 43.0-75.0 [facility] Comment on above: Performed By: #### R UBIGG #### [facility] [address] [place] [address] Dr. Lis Oakley Platelet mean volume (Bld) [Entitic vol] 10.2 fL Normal 9.5-13.5 [facility] Comment on above: Performed By: #### R UBIGG #### [facility] [address] [place] [address] Dr. Lis Oakley PLT 288 103/ul Normal 150-450 [facility] Comment on above: Performed By: #### R UBIGG #### [facility] [address] [place] [address] Dr. Lis Oakley RBC 4.00 106/ul Critically low 4.20-5.40 [facility] Comment on above: Performed By: #### R UBIGG #### [facility] [address] [place] [address] Dr. Lis Oakley WBC 10.1 103/ul Normal 4.0-11.0 [facility] Comment on above: Performed By: #### R UBIGG #### [facility] [address] [place] [address] Dr. Lis Oakley DRUG SCREEN RAPID (URINE)on 08-27-2022 AMP Negative Normal NEGATIVE [facility] Comment on above: Performed By: #### D RUGRPD #### [facility] [address] [place] [address] Dr. Lis Oakley BAR Negative Normal NEGATIVE [facility] Comment on above: Performed By: #### D RUGRPD #### [facility] [address] [place] [address] Dr. Lis Oakley BUP Negative Normal NEGATIVE [facility] Comment on above: Performed By: #### D RUGRPD #### [facility] [address] [place] [address] Dr. Lis Oakley BZO Negative Normal NEGATIVE [facility] Comment on above: Performed By: #### D RUGRPD #### [facility] [address] [place] [address] Dr. Lis Oakley DEBBY Negative Normal NEGATIVE [facility] Comment on above: Performed By: #### D RUGRPD #### [facility] [address] [place] [address] Dr. Lis Oakley CUT-OFFS SEE BELOW Normal [facility] Comment on above: Result Comment: AMP (Amphetamine): 500ng/mL, BAR (Barbituates): 200 ng/mL, BZO (Benzodiazepines): 150 ng/mL, BUP (Buprenorphine): 10 ng/mL, DEBBY (Cocaine): 150 ng/mL, mAMP (Methamphetamine): 500 ng/mL, MTD (Methadone): 200 ng/mL, OPI (Opiates): 100 ng/mL, OXY (Oxycodone): 100 ng/mL, PCP (Phencyclidine): 25 ng/mL, PPX (Propoxyphene): 300 ng/mL, THC (Cannabinoids): 50 ng/mL, TCA (Trycyclic Antidepressants): 300 ng/mL Performed By: #### D RUGRPD #### [facility] [address] [place] [address] Dr. Lis Oakley DRUG CUT HEADER DRUG CLASS TEST SYST EM CUT-OFF CONCENTRATIONS ARE FOLLOWS: Normal [facility] Comment on above: Performed By: #### D RUGRPD #### [facility] [address] [place] [address] Dr. Lis Oakley mAMP Negative Normal NEGATIVE [facility] Comment on above: Performed By: #### D RUGRPD #### [facility] [address] [place] [address] Dr. Lis Oakley MTD Negative Normal NEGATIVE [facility] Comment on above: Performed By: #### D RUGRPD #### [facility] [address] [address] [address] Lis Oakley OPI Negative Normal NEGATIVE [facility] Comment on above: Performed By: #### D RUGRPD #### [facility] [address] [address] [address] Lis Oakley OXY Negative Normal NEGATIVE [facility] Comment on above: Performed By: #### D RUGRPD #### [facility] [address] [address] [address] Lis Oakley PCP Negative Normal NEGATIVE [facility] Comment on above: Performed By: #### D RUGRPD #### [facility] [address] [place] [address] Dr. Lis Oakley PPX Negative Normal NEGATIVE [facility] Comment on above: Performed By: #### D RUGRPD #### [facility] [address] [address] [address] Lis Oakley TCA Negative Normal NEGATIVE [facility] Comment on above: Performed By: #### D RUGRPD #### [facility] [address] [address] [address] Lis Oakley THC Negative Normal NEGATIVE [facility] Comment on above: Performed By: #### D RUGRPD #### [facility] [address] [place] [address] Dr. Lis Oakley TYPE AND SCREENon 08-27-2022 TYPE AND SCREEN Negative Normal [facility] Comment on above: Performed By: #### C BC #### [facility] [address] [place] [address] Dr. Lis Oakley US PREG GROWTHon 08-19-2022 [...] NESTOR NELSON Date: 2022-08-19 16:24 Normal [facility] GROUP B STREP CULTUREon 07-30 S. agalactiae [...] F Tetracycline >=16 R F Normal [facility] Comment on above: Performed By: #### G BSCX #### [facility] [address] [place] [address] Dr. Lis Oakley CHLAMYDIA/GONOCOCCUS YOMI (SW AB/URINE/PAPon 08-14-2022 Chlamydia trachomatis, YOMI Negative Normal Negative [facility] Comment on above: Performed By: #### C T/NGNA #### [facility] [address] [place] [address] Dr. Lis Oakley Neisseria gonorrhoeae, YOMI Negative Normal Negative [facility] Comment on above: Performed By: #### C T/NGNA #### [facility] [address] [place] [address] Dr. Lis Oakley VAGINITIS/VAGINOSIS DNA PROB Talon 08-14-2022 Marcelle species Negative Normal Negative [facility] Comment on above: Performed By: #### R UBIGG #### [facility] [address] [place] [address] Dr. Lis Oakley Gardnerella vaginalis Negative Normal Negative [facility] Comment on above: Performed By: #### R UBIGG #### [facility] [address] [place] [address] Dr. Lis Oakley Trichomonas vaginalis Negative Normal Negative [facility] Comment on above: Performed By: #### R UBIGG #### [facility] [address] [place] [address] Dr. Lis Oakley HEP B SURFACE ANTIGEN SCREEN on 07-16-2022 HBsAg Screen Negative Normal Negative [facility] Comment on above: Performed By: #### C BC #### [facility] [address] [place] [address] Dr. Lis Oakley HEPATITIS C VIRUS AB W/ REFL EX QUANTon 07-16-2022 HCV AB Non-Reactive Normal Non Reactive [facility] Comment on above: Performed By: #### C BC #### [facility] [address] [place] [address] Dr. Lis Oakley Interpretation: Comment Normal [facility] Comment on above: Result Comment: Not infected with HCV unless early or acute infection is suspected (which may be delayed in an immunocompromised individual), or other evidence exists to indicate HCV infection. Performed By: #### C BC #### [facility] [address] [place] [address] Dr. Lis Oakley HIV 1 AND 2 WITH REFLEXon HIV Screen 4th Generation wRfx Non-Reactive Normal Non Reactive [facility] Comment on above: Result Comment: HIV Negative HIV-1/HIV-2 antibodies and HIV-1 p24 antigen were NOT detected. There is no laboratory evidence of HIV infection. Performed By: #### R UBIGG #### [facility] [address] [place] [address] Dr. Lis Oakley RPR QUANTon 07-16-2022 Rapid Plasma Reagin, Quant Non-Reactive Normal NonRea<1:1 [facility] Comment on above: Result Comment: Apolinar andrews Note: This test does not meet current guidelines for screening and diagnosis of syphilis. This test is intended for following treatment response in patients being treated for syphilis infection. To screen for syphilis infection, a reflex cascade that includes both RPR and a treponema-specific assay should be utilized, such as Treponema pallidum (Syphilis) Screening [place] (273890) or Rapid Plasma Reagin (RPR) Test With Reflex to Quantitative RPR and Confirmatory Treponema pallidum Antibodies (986810). Performed By: #### R PRQ #### [facility] [address] [place] [address] Dr. Lis Oakley RUBELLA AB IGGon 07-16-2022 Rubella Antibodies, IgG 1.94 index Normal Immune >0.99 [facility] Comment on above: Result Comment: Non- immune <0.90 Equivocal 0.90 - 0.99 Immune >0.99 Performed By: #### R UBIGG #### [facility] [address] [place] [address] Dr. Lis Oakley CBC AUTO DIFFon 07-15-2022 BASO # 0.1 103/ul Normal 0.0-0.1 [facility] Comment on above: Performed By: #### C BC #### [facility] [address] [place] [address] Dr. Lis Oakley Basophils/100 WBC (Bld) 0.5 % Normal 0.2-2.0 [facility] Comment on above: Performed By: #### C BC #### [facility] [address] [place] [address] Dr. Lis Oakley EO # 0.2 103/ul Normal 0.0-0.7 [facility] Comment on above: Performed By: #### C BC #### [facility] [address] [place] [address] Dr. Lis Oakley Eosinophils/100 WBC (Bld) 1.6 % Normal 0.9-7.0 [facility] Comment on above: Performed By: #### C BC #### [facility] [address] [place] [address] Dr. Lis Oakley Erythrocyte distribution width (RBC) [Ratio] 13.7 % Normal 11.0-15.0 [facility] Comment on above: Performed By: #### C BC #### [facility] [address] [place] [address] Dr. Lis Oakley Hematocrit (Bld) [Volume fraction] 32.0 % Critically low 36.0-48.0 [facility] Comment on above: Performed By: #### C BC #### [facility] [address] [place] [address] Dr. Lis Oakley Hemoglobin (Bld) [Mass/Vol] 10.1 g/dL Critically low 12.0-16.0 [facility] Comment on above: Performed By: #### C BC #### [facility] [address] [place] [address] Dr. Lis Oakley IG # 0.09 10e3/ul Critically high 0.00-0.03 [facility] Comment on above: Performed By: #### C BC #### [facility] [address] [place] [address] Dr. Lis Oakley IG % 0.7 % Critically high 0.0-0.5 [facility] Comment on above: Performed By: #### C BC #### [facility] [address] [place] [address] Dr. Lis Oakley LYMPH # 2.4 103/ul Normal 1.2-3.8 [facility] Comment on above: Performed By: #### C BC #### [facility] [address] [place] [address] Dr. Lis Oakley Lymphocytes/100 WBC (Bld) 19.5 % Critically low 20.5-60.0 [facility] Comment on above: Performed By: #### C BC #### [facility] [address] [place] [address] Dr. Lis Oakley MANUAL DIFF REQ NO Normal [facility] Comment on above: Performed By: #### C BC #### [facility] [address] [place] [address] Dr. Lis Oakley MCH (RBC) [Entitic mass] 25.6 pg Critically low 26.7-34.0 [facility] Comment on above: Performed By: #### C BC #### [facility] [address] [place] [address] Dr. Lis Oakley MCHC (RBC) [Mass/Vol] 31.6 g/dL Normal 29.9-35.2 [facility] Comment on above: Performed By: #### C BC #### [facility] [address] [place] [address] Dr. Lis Oakley MCV (RBC) [Entitic vol] 81.0 fL Normal 81.0-99.0 [facility] Comment on above: Performed By: #### C BC #### [facility] [address] [place] [address] Dr. Lis Oakley MONO # 0.8 103/ul Normal 0.3-0.8 [facility] Comment on above: Performed By: #### C BC #### [facility] [address] [place] [address] Dr. Lis Oakley Monocytes/100 WBC (Bld) 6.9 % Normal 1.7-12.0 [facility] Comment on above: Performed By: #### C BC #### [facility] [address] [place] [address] Dr. Lis Oakley NEUT # 8.6 103/ul Critically high 1.4-6.5 [facility] Comment on above: Performed By: #### C BC #### [facility] [address] [place] [address] Dr. Lis Oakley Neutrophils/100 WBC (Bld) 70.8 % Normal 43.0-75.0 [facility] Comment on above: Performed By: #### C BC #### [facility] [address] [place] [address] Dr. Lis Oakley Platelet mean volume (Bld) [Entitic vol] 10.0 fL Normal 9.5-13.5 [facility] Comment on above: Performed By: #### C BC #### [facility] [address] [place] [address] Dr. Lis Oakley PLT 315 103/ul Normal 150-450 [facility] Comment on above: Performed By: #### C BC #### [facility] [address] [place] [address] Dr. Lis Oakley RBC 3.95 106/ul Critically low 4.20-5.40 [facility] Comment on above: Performed By: #### C BC #### [facility] [address] [place] [address] Dr. Lis Oakley WBC 12.2 103/ul Critically high 4.0-11.0 [facility] Comment on above: Performed By: #### C BC #### [facility] [address] [place] [address] Dr. Lis Oakley CULTURE URINEon 07-15-2022 CULTURE URINE Culture Observations : MODERATE GROWTH OF MIXED GENITAL DORIAN. NO POTENTIAL PATHOGENS SEEN. Normal [facility] Comment on above: Performed By: #### C BC #### [facility] [address] [place] [address] Dr. Lis Oakley GLYCOHEMOGLOBIN A1Con 2022 ADA RECOMMENDATION SEE BELOW Normal [facility] Comment on above: Result Comment: ADA RECOMMENDED LIMIT 4.0 - 6.0 ADA THERAPEUTIC TARGET < 7.0 ACTION SUGGESTED > 7.0 Performed By: #### C BC #### [facility] [address] [place] [address] Dr. Lis Oakley Glucose [Mass/Vol] 114 mg/dL Normal [facility] Comment on above: Performed By: #### C BC #### [facility] [address] [place] [address] Dr. Lis Oakley HbA1c (Bld) [Mass fraction] 5.6 % Normal 4.5-6.2 [facility] Comment on above: Performed By: #### C BC #### [facility] [address] [place] [address] Dr. Lis Oakley TYPE AND SCREENon 07-15-2022 TYPE AND SCREEN Negative Normal [facility] Comment on above: Performed By: #### T NS #### [facility] [address] [place] [address] Dr. Lis Oakley CBC AUTO DIFFon 06-17-2022 BASO # 0.1 103/ul Normal 0.0-0.1 [facility] Comment on above: Performed By: #### C BC #### [facility] [address] [address] [address] Lis Oakley Basophils/100 WBC (Bld) 0.5 % Normal 0.2-2.0 [facility] Comment on above: Performed By: #### C BC #### [facility] [address] [address] [address] Lis Oakley EO # 0.1 103/ul Normal 0.0-0.7 [facility] Comment on above: Performed By: #### C BC #### [facility] [address] [place] [address] Dr. Lis Oakley Eosinophils/100 WBC (Bld) 1.3 % Normal 0.9-7.0 [facility] Comment on above: Performed By: #### C BC #### [facility] [address] [place] [address] Dr. Lis Oakley Erythrocyte distribution width (RBC) [Ratio] 13.9 % Normal 11.0-15.0 [facility] Comment on above: Performed By: #### C BC #### [facility] [address] [place] [address] Dr. Lis Oakley Hematocrit (Bld) [Volume fraction] 31.8 % Critically low 36.0-48.0 [facility] Comment on above: Performed By: #### C BC #### [facility] [address] [place] [address] Dr. Lis Oakley Hemoglobin (Bld) [Mass/Vol] 10.3 g/dL Critically low 12.0-16.0 [facility] Comment on above: Performed By: #### C BC #### [facility] [address] [place] [address] Dr. Lsi Oakley IG # 0.07 10e3/ul Critically high 0.00-0.03 [facility] Comment on above: Performed By: #### C BC #### [facility] [address] [place] [address] Dr. Lis Oakley IG % 0.7 % Critically high 0.0-0.5 [facility] Comment on above: Performed By: #### C BC #### [facility] [address] [place] [address] Dr. Lis Oakley LYMPH # 1.7 103/ul Normal 1.2-3.8 [facility] Comment on above: Performed By: #### C BC #### [facility] [address] [place] [address] Dr. Lis Oakley Lymphocytes/100 WBC (Bld) 16.0 % Critically low 20.5-60.0 [facility] Comment on above: Performed By: #### C BC #### [facility] [address] [place] [address] Dr. Lis Oakley MANUAL DIFF REQ NO Normal [facility] Comment on above: Performed By: #### C BC #### [facility] [address] [place] [address] Dr. Lis Oakley MCH (RBC) [Entitic mass] 26.7 pg Normal 26.7-34.0 [facility] Comment on above: Performed By: #### C BC #### [facility] [address] [place] [address] Dr. Lis Oakley MCHC (RBC) [Mass/Vol] 32.4 g/dL Normal 29.9-35.2 [facility] Comment on above: Performed By: #### C BC #### [facility] [address] [place] [address] Dr. Lis Oakley MCV (RBC) [Entitic vol] 82.4 fL Normal 81.0-99.0 [facility] Comment on above: Performed By: #### C BC #### [facility] [address] [place] [address] Dr. Lis Oakley MONO # 0.6 103/ul Normal 0.3-0.8 [facility] Comment on above: Performed By: #### C BC #### [facility] [address] [place] [address] Dr. Lis Oakley Monocytes/100 WBC (Bld) 5.5 % Normal 1.7-12.0 [facility] Comment on above: Performed By: #### C BC #### [facility] [address] [place] [address] Dr. Lis Oakley NEUT # 8.2 103/ul Critically high 1.4-6.5 [facility] Comment on above: Performed By: #### C BC #### [facility] [address] [place] [address] Dr. Lis Oakley Neutrophils/100 WBC (Bld) 76.0 % Critically high 43.0-75.0 [facility] Comment on above: Performed By: #### C BC #### [facility] [address] [place] [address] Dr. Lis Oakley Platelet mean volume (Bld) [Entitic vol] 9.6 fL Normal 9.5-13.5 [facility] Comment on above: Performed By: #### C BC #### [facility] [address] [place] [address] Dr. Lis Oakley PLT 329 103/ul Normal 150-450 [facility] Comment on above: Performed By: #### C BC #### [facility] [address] [place] [address] Dr. Lis Oakley RBC 3.86 106/ul Critically low 4.20-5.40 [facility] Comment on above: Performed By: #### C BC #### [facility] [address] [place] [address] Dr. Lis Oakley WBC 10.7 103/ul Normal 4.0-11.0 [facility] Comment on above: Performed By: #### C BC #### [facility] [address] [place] [address] Dr. Lis Oakley GLUCOSE - 1HRon 06-17-2022 Glucose [Mass/Vol] 123 mg/dL Critically high 74-[address] [facility] Comment on above: Performed By: #### R UBIGG #### [facility] [address] [place] [address] Dr. Lis Oakley US PREG ANATOMY SINGLEon [...] RADHA ARORA Date: 2022-05-29 16:12 Normal [facility] AFP MATERNAL FOR SPINA BIFID Aon 05-22-2022 AFP MoM See interpretation. Normal [facility] Comment on above: Performed By: #### A FPMAT #### [facility] [address] [address] [address] Lis Oakley AFP Value 71.3 ng/mL Normal [facility] Comment on above: Performed By: #### A FPMAT #### [facility] [address] [address] [address] Lis Oakley AFP, Serum for Spina Bifida Report Normal [facility] Comment on above: Performed By: #### A FPMAT #### [facility] [address] [address] [address] Lis Oakley Comment Comment Normal [facility] Comment on above: Result Comment: Michelle Saldaña, Ph.D., [facility] Director . References: Available Upon Request. . Multiples Of Median Cutoffs For AFP Elevations Brooks 2.5 Black 2.8 IDD 2.0 Twins 4.5 Abbreviation Definitions IDD - Insulin Dep Diabetes OSBR - Open Spina Bifida Risk . For further inquiries contact [employer] at [phone]. . This test was developed and its performance characteristics determined by [employer]. It has not been cleared or approved by the Food and Drug Administration. Performed By: #### A FPMAT #### [facility] [address] [address] [address] Lis Oakley Gest Age Collection Date 24.7 weeks Normal [facility] Comment on above: Performed By: #### A FPMAT #### [facility] [address] [address] [address] Lis Oakley Gestat, Age Based on [place] Normal [facility] Comment on above: Result Comment: 09/2022 Recalculations are not recommended when gestational dating by LMP and ultrasound are within 10 days. Performed By: #### A FPMAT #### [facility] [address] [address] [address] Lis Oakley Insulin Dep Diabetes No Normal [facility] Comment on above: Performed By: #### A FPMAT #### [facility] [address] [address] [address] Lis Oakley Interpretation Comment Normal [facility] Comment on above: Result Comment: Inte rpretation: An interpretation CANNOT be provided for this patient due to one of the following reasons: 1. Gestational age is <15 weeks. Please submit a second sample at the optimum gestational age for screening (16-18 weeks). OR 2. Gestational age is greater than 23 weeks. Performed By: #### A FPMAT #### [facility] [address] [address] [address] Lis Oakley [age][place] [age] [address] [facility] Comment on above: Performed By: #### A FPMAT #### [facility] [address] [address] [address] Lis Oakley Multiple Gestation No Normal [facility] Comment on above: Performed By: #### A FPMAT #### [facility] [address] [address] [address] Lis Oakley OSBR Risk 1 IN See interpretation. Normal [facility] Comment on above: Performed By: #### A FPMAT #### [facility] [address] [place] [address] Dr. Lis Oakley PDF . [facility] Comment on above: Performed By: #### A FPMAT #### [facility] [address] [place] [address] Dr. Lis Oakley Race [facility] Comment on above: Performed By: #### A FPMAT #### [facility] [address] [place] [address] Dr. Lis Oakley Test Results: See interpretation. Normal [facility] Comment on above: Performed By: #### A FPMAT #### [facility] [address] [place] [address] Dr. Lis Oakley US PREG TVon 01-30-2022 [...] NESTOR NELSON Date: 2022-01-30 16:13 Normal [facility] Vital Signs Date Time Vital Sign Value Performing Clinician Nata العلي 05-22-2022 16:07-0500 Body weight 93.4416 kg ALESSANDRO CHRISTOPHER [facility] Comment on above: Performed By: #### A FPMAT #### [facility] [address] [address] [address] Lis Oakley Encounters Encounter Date Encounter [...] CHRISTOPHER Payers Date Payer Category Payer Unknown [id number] 2.16.84 [id number] 2000 Unknown [id number] 2.16.84 [id number] 2000 Unknown [id number] 2.16.84 [id number] 2000 Unknown [id number] 2.16.84 [id number] 2000 Unknown [id number] 2.16.84 [id number] 2000 Unknown [id number] 2.16.84 [id number] 2000 Unknown [id number] 2.16.84 [id number] 2000 Unknown [id number] 2.16.84 [id number] 2000 Unknown [id number] 2.16.84 [id number] 2000 Unknown [id number] 2.16.84 [id number] 1959 Self-pay 1959 Unknown [id number] 1959 Unknown [id number] Clinical Note 08-27-2022 Note Date & Type Note Facility 08-27-2022 Note OPERATIVE NOTE OPERATION DATE: 08/28/2022 PROCEDURE: Primary low transverse section. PREOPERATIVE DIAGNOSIS: 1. Intrauterine at 39 weeks. 2. Failure to dilate. 3. Failure to descend. POSTOPERATIVE DIAGNOSIS: 1. Intrauterine at 39 weeks. 2. Failure to dilate. 3. Failure to descend. ANESTHESIA: Spinal. SURGEON: Alessandro Greer D.O. FIELD INSPECTOR: GABY Lou URINE OUTPUT: Yellow and clear. [...] the Recovery Room in stable condition. [facility] Discharge summary note 08-27-2022 Note Date & [...] free and no longer on narcotics. [facility] Summary Purpose Family History No Family History Records Found Advance Directives No Advanced Directives Records Found Additional Source Comments INFORMATION SOURCE (unrecogn ized section and content) DATE CREATED AUTHOR 09/25/2022 [facility] FOR RECORDS PERTAINING TO PATIENTS WHO ARE [...] BE BASED ON THE PRIMARY CLINICAL RECORDS. [employer] [facility]. provides no warranty or guarantee of the accuracy or completeness of information in this document.
== END 2024-05-19 13:01 | disposition home or self-care (01) ==
LOC: NOMS 13:00
PROVIDERS: Visit Provider Obstetrics & Gynecology
DX: O20.0 Threatened abortion (principal)
CPT/HCPCS: 76830

== ENCOUNTER 2024-06-16 10:41 | Outpatient (RCR) | payer OTHER, SELFPAY ==
--- OUTSIDE RECORDS SUMMARY | 2024-06-16 10:40 | XMS_ITS | CCD ---
Author Organization [facility] Care Team Providers Care Practical Nurse Clinical Coordinator Name Role Phone CHRISTOPHER ALESSANDRO [employer] Unavailable [...] 08-29-2022 BASO # 0.1 103/ul Normal 0.0-0.1 [facility] [place] Comment on above: Performed By: #### C BC #### [facility] [address] [address] [address] Lis Oakley Basophils/100 WBC (Bld) 0.3 % Normal 0.2-2.0 [facility] [place] Comment on above: Performed By: #### C BC #### [facility] [address] [address] [address] Lis Oakley EO # 0.0 103/ul Normal 0.0-0.7 [facility] [place] Comment on above: Performed By: #### C BC #### [facility] [address] [place] [address] Dr. Lis Oakley Eosinophils/100 WBC (Bld) 0.0 % Critically low 0.9-7.0 [facility] [place] Comment on above: Performed By: #### C BC #### [facility] [address] [address] [address] Lis Oakley Erythrocyte distribution width (RBC) [Ratio] 15.0 % Normal 11.0-15.0 [facility] [place] Comment on above: Performed By: #### C BC #### [facility] [address] [address] [address] Lis Oakley Hematocrit (Bld) [Volume fraction] 26.4 % Critically low 36.0-48.0 [facility] [place] Comment on above: Performed By: #### C BC #### [facility] [address] [address] [address] Lis Oakley Hemoglobin (Bld) [Mass/Vol] 8.1 g/dL Critically low 12.0-16.0 [facility] [place] Comment on above: Performed By: #### C BC #### [facility] [address] [address] [address] Lis Oakley IG # 0.10 10e3/ul Critically high 0.00-0.03 [facility] Comment on above: Performed By: #### C BC #### [facility] [address] [address] [address] Lis Oakley IG % 0.6 % Critically high 0.0-0.5 [facility] Comment on above: Performed By: #### C BC #### [facility] [address] [address] [address] Lis Oakley LYMPH # 1.0 103/ul Critically low 1.2-3.8 [facility] Comment on above: Performed By: #### C BC #### [facility] [address] [place] [address] Dr. Lis Oakley Lymphocytes/100 WBC (Bld) 5.8 % Critically low 20.5-60.0 [facility] [place] Comment on above: Performed By: #### C BC #### [facility] [address] [place] [address] Dr. Lis Oakley MANUAL DIFF REQ NO Normal [facility] Comment on above: Performed By: #### C BC #### [facility] [address] [place] [address] Dr. Lis Oakley MCH (RBC) [Entitic mass] 23.8 pg Critically low 26.7-34.0 [facility] [place] Comment on above: Performed By: #### C BC #### [facility] [address] [place] [address] Dr. Lis Oakley MCHC (RBC) [Mass/Vol] 30.7 g/dL Normal 29.9-35.2 [facility] [place] Comment on above: Performed By: #### C BC #### [facility] [address] [place] [address] Dr. Lis Oakley MCV (RBC) [Entitic vol] 77.4 fL Critically low 81.0-99.0 [facility] [place] Comment on above: Performed By: #### C BC #### [facility] [address] [place] [address] Dr. Lis Oakley MONO # 0.7 103/ul Normal 0.3-0.8 [facility] [place] Comment on above: Performed By: #### C BC #### [facility] [address] [place] [address] Dr. Lis Oakley Monocytes/100 WBC (Bld) 3.9 % Normal 1.7-12.0 [facility] [place] Comment on above: Performed By: #### C BC #### [facility] [address] [place] [address] Dr. Lis Oakley NEUT # 16.0 103/ul Critically high 1.4-6.5 [facility] Comment on above: Performed By: #### C BC #### [facility] [address] [place] [address] Dr. Lis Oakley Neutrophils/100 WBC (Bld) 89.4 % Critically high 43.0-75.0 [facility] [place] Comment on above: Performed By: #### C BC #### [facility] [address] [place] [address] Dr. Lis Oakley Platelet mean volume (Bld) [Entitic vol] 10.7 fL Normal 9.5-13.5 [facility] [place] Comment on above: Performed By: #### C BC #### [facility] [address] [place] [address] Dr. Lis Oakley PLT 271 103/ul Normal 150-450 [facility] [place] Comment on above: Performed By: #### C BC #### [facility] [address] [place] [address] Dr. Lis Oakley RBC 3.41 106/ul Critically low 4.20-5.40 [facility] Comment on above: Performed By: #### C BC #### [facility] [address] [place] [address] Dr. Lis Oakley WBC 17.9 103/ul Critically high 4.0-11.0 [facility] Comment on above: Performed By: #### C BC #### [facility] [address] [place] [address] Dr. Lis Oakley CBC AUTO DIFFon 08-27-2022 BASO # 0.0 103/ul Normal 0.0-0.1 [facility] [place] Comment on above: Performed By: #### R UBIGG #### [facility] [address] [address] [address] Lis Oakley Basophils/100 WBC (Bld) 0.4 % Normal 0.2-2.0 [facility] [place] Comment on above: Performed By: #### R UBIGG #### [facility] [address] [address] [address] Lis Oakley EO # 0.1 103/ul Normal 0.0-0.7 [facility] [place] Comment on above: Performed By: #### R UBIGG #### [facility] [address] [address] [address] Lis Oakley Eosinophils/100 WBC (Bld) 0.6 % Critically low 0.9-7.0 [facility] [place] Comment on above: Performed By: #### R UBIGG #### [facility] [address] [place] [address] Dr. Lis Oakley Erythrocyte distribution width (RBC) [Ratio] 14.6 % Normal 11.0-15.0 [facility] [place] Comment on above: Performed By: #### R UBIGG #### [facility] [address] [place] [address] Dr. Lis Oakley Hematocrit (Bld) [Volume fraction] 30.4 % Critically low 36.0-48.0 [facility] [place] Comment on above: Performed By: #### R UBIGG #### [facility] [address] [place] [address] Dr. Lis Oakley Hemoglobin (Bld) [Mass/Vol] 9.7 g/dL Critically low 12.0-16.0 [facility] [place] Comment on above: Performed By: #### R UBIGG #### [facility] [address] [address] [address] Lis Oakley IG # 0.06 10e3/ul Critically high 0.00-0.03 [facility] Comment on above: Performed By: #### R UBIGG #### [facility] [address] [address] [address] iLs Oakley IG % 0.6 % Critically high 0.0-0.5 [facility] Comment on above: Performed By: #### R UBIGG #### [facility] [address] [address] [address] Lis Oakley LYMPH # 1.7 103/ul Normal 1.2-3.8 [facility] [place] Comment on above: Performed By: #### R UBIGG #### [facility] [address] [address] [address] Lis Oakley Lymphocytes/100 WBC (Bld) 16.3 % Critically low 20.5-60.0 [facility] [place] Comment on above: Performed By: #### R UBIGG #### [facility] [address] [address] [address] Lis Oakley MANUAL DIFF REQ NO Normal [facility] Comment on above: Performed By: #### R UBIGG #### [facility] [address] [place] [address] Dr. Lis Oakley MCH (RBC) [Entitic mass] 24.3 pg Critically low 26.7-34.0 [facility] [place] Comment on above: Performed By: #### R UBIGG #### [facility] [address] [place] [address] Dr. Lis Oakley MCHC (RBC) [Mass/Vol] 31.9 g/dL Normal 29.9-35.2 [facility] [place] Comment on above: Performed By: #### R UBIGG #### [facility] [address] [address] [address] Lis Oakley MCV (RBC) [Entitic vol] 76.0 fL Critically low 81.0-99.0 [facility] [place] Comment on above: Performed By: #### R UBIGG #### [facility] [address] [place] [address] Dr. Lis Oakley MONO # 0.5 103/ul Normal 0.3-0.8 [facility] [place] Comment on above: Performed By: #### R UBIGG #### [facility] [address] [address] [address] Lis Oakley Monocytes/100 WBC (Bld) 4.5 % Normal 1.7-12.0 [facility] [place] Comment on above: Performed By: #### R UBIGG #### [facility] [address] [place] [address] Dr. Lis Oakley NEUT # 7.8 103/ul Critically high 1.4-6.5 [facility] Comment on above: Performed By: #### R UBIGG #### [facility] [address] [place] [address] Dr. Lis Oakley Neutrophils/100 WBC (Bld) 77.6 % Critically high 43.0-75.0 [facility] [place] Comment on above: Performed By: #### R UBIGG #### [facility] [address] [place] [address] Dr. Lis Oakley Platelet mean volume (Bld) [Entitic vol] 10.2 fL Normal 9.5-13.5 [facility] [place] Comment on above: Performed By: #### R UBIGG #### [facility] [address] [place] [address] Dr. Lis Oakley PLT 288 103/ul Normal 150-450 [facility] Comment on above: Performed By: #### R UBIGG #### [facility] [address] [place] [address] Dr. Lis Oakley RBC 4.00 106/ul Critically low 4.20-5.40 [facility] Comment on above: Performed By: #### R UBIGG #### [facility] [address] [place] [address] Dr. Lis Oakley WBC 10.1 103/ul Normal 4.0-11.0 [facility] Comment on above: Performed By: #### R UBIGG #### [facility] [address] [place] [address] Dr. Lis Oakley DRUG SCREEN RAPID (URINE)on 08-27-2022 AMP Negative Normal NEGATIVE [facility] [place] Comment on above: Performed By: #### D RUGRPD #### [facility] [address] [place] [address] Dr. Lis Oakley BAR Negative Normal NEGATIVE [facility] Comment on above: Performed By: #### D RUGRPD #### [facility] [address] [place] [address] Dr. Lis Oakley BUP Negative Normal NEGATIVE [facility] Comment on above: Performed By: #### D RUGRPD #### [facility] [address] [place] [address] Dr. Lis Oakley BZO Negative Normal NEGATIVE [facility] Comment on above: Performed By: #### D RUGRPD #### [facility] [address] [place] [address] Dr. Lis Oakley DEBBY Negative Normal NEGATIVE [facility] [place] Comment on above: Performed By: #### D RUGRPD #### [facility] [address] [place] [address] Dr. Lis Oakley CUT-OFFS SEE BELOW Normal [facility] Comment on above: Result Comment: AMP (Amphetamine): 500ng/mL, BAR (Barbituates): 200 ng/mL, BZO (Benzodiazepines): 150 ng/mL, BUP (Buprenorphine): 10 ng/mL, DEBBY (Cocaine): 150 ng/mL, mAMP (Methamphetamine): 500 ng/mL, MTD (Methadone): 200 ng/mL, OPI (Opiates): 100 ng/mL, OXY (Oxycodone): 100 ng/mL, PCP (Phencyclidine): 25 ng/mL, PPX (Propoxyphene): 300 ng/mL, THC (Cannabinoids): 50 ng/mL, TCA (Trycyclic Antidepressants): 300 ng/mL Performed By: #### D RUGRPD #### [facility] [address] [place] [address] Dr. Lis Oakley DRUG CUT HEADER DRUG CLASS TEST SYST EM CUT-OFF CONCENTRATIONS ARE FOLLOWS: Normal [facility] Comment on above: Performed By: #### D RUGRPD #### [facility] [address] [place] [address] Dr. Lis Oakley mAMP Negative Normal NEGATIVE [facility] Comment on above: Performed By: #### D RUGRPD #### [facility] [address] [place] [address] Dr. Lis Oakley MTD Negative Normal NEGATIVE [facility] [place] Comment on above: Performed By: #### D RUGRPD #### [facility] [address] [address] [address] Lis Oakley OPI Negative Normal NEGATIVE [facility] [place] Comment on above: Performed By: #### D RUGRPD #### [facility] [address] [address] [address] Lis Oakley OXY Negative Normal NEGATIVE [facility] Comment on above: Performed By: #### D RUGRPD #### [facility] [address] [address] [address] Lis Oakley PCP Negative Normal NEGATIVE [facility] [place] Comment on above: Performed By: #### D RUGRPD #### [facility] [address] [place] [address] Dr. Lis Oakley PPX Negative Normal NEGATIVE [facility] [place] Comment on above: Performed By: #### D RUGRPD #### [facility] [address] [address] [address] Lis Oakley TCA Negative Normal NEGATIVE [facility] [place] Comment on above: Performed By: #### D RUGRPD #### [facility] [address] [address] [address] Lis Oakley THC Negative Normal NEGATIVE [facility] [place] Comment on above: Performed By: #### D RUGRPD #### [facility] [address] [place] [address] Dr. Lis Oakley TYPE AND SCREENon 08-27-2022 TYPE AND SCREEN Negative Normal [facility] Comment on above: Performed By: #### C BC #### [facility] [address] [place] [address] Dr. Lis Oakley US PREG GROWTHon 08-19-2022 [...] NESTOR NELSON Date: 2022-08-19 16:24 Normal [facility] GROUP B STREP CULTUREon 07-30 S. [...] F Tetracycline >=16 R F Normal [facility] Comment on above: Performed By: #### G BSCX #### [facility] [address] [place] [address] Dr. Lis Oakley CHLAMYDIA/GONOCOCCUS YOMI (SW AB/URINE/PAPon 08-14-2022 Chlamydia trachomatis, YOMI Negative Normal Negative [facility] Comment on above: Performed By: #### C T/NGNA #### [facility] [address] [place] [address] Dr. Lis Oakley Neisseria gonorrhoeae, YOMI Negative Normal Negative [facility] Comment on above: Performed By: #### C T/NGNA #### [facility] [address] [place] [address] Dr. Lis Oakley VAGINITIS/VAGINOSIS DNA PROB Talon 08-14-2022 Marcelle species Negative Normal Negative [facility] Comment on above: Performed By: #### R UBIGG #### [facility] [address] [place] [address] Dr. Lis Oakley Gardnerella vaginalis Negative Normal Negative [facility] [place] Comment on above: Performed By: #### R UBIGG #### [facility] [address] [place] [address] Dr. Lis Oakley Trichomonas vaginalis Negative Normal Negative [facility] [place] Comment on above: Performed By: #### R UBIGG #### [facility] [address] [place] [address] Dr. Lis Oakley HEP B SURFACE ANTIGEN SCREEN on 07-16-2022 HBsAg Screen Negative Normal Negative [facility] [place] Comment on above: Performed By: #### C BC #### [facility] [address] [place] [address] Dr. Lis Oakley HEPATITIS C VIRUS AB W/ REFL EX QUANTon 07-16-2022 HCV AB Non-Reactive Normal Non Reactive [facility] Comment on above: Performed By: #### C BC #### [facility] [address] [place] [address] Dr. Lis Oakley Interpretation: Comment Normal [facility] Comment on above: Result Comment: Not infected with HCV unless early or acute infection is suspected (which may be delayed in an immunocompromised individual), or other evidence exists to indicate HCV infection. Performed By: #### C BC #### [facility] [address] [place] [address] Dr. Lis Oakley HIV 1 AND 2 WITH REFLEXon HIV Screen 4th Generation wRfx Non-Reactive Normal Non Reactive [facility] [place] Comment on above: Result Comment: HIV Negative HIV-1/HIV-2 antibodies and HIV-1 p24 antigen were NOT detected. There is no laboratory evidence of HIV infection. Performed By: #### R UBIGG #### [facility] [address] [place] [address] Dr. Lis Oakley RPR QUANTon 07-16-2022 Rapid Plasma Reagin, Quant Non-Reactive Normal NonRea<1:1 [facility] [place] Comment on above: Result Comment: Apolinar andrews Note: This test does not meet current guidelines for screening and diagnosis of syphilis. This test is intended for following treatment response in patients being treated for syphilis infection. To screen for syphilis infection, a reflex cascade that includes both RPR and a treponema-specific assay should be utilized, such as Treponema pallidum (Syphilis) Screening [place] (746522) or Rapid Plasma Reagin (RPR) Test With Reflex to Quantitative RPR and Confirmatory Treponema pallidum Antibodies (017463). Performed By: #### R PRQ #### [facility] [address] [place] [address] Dr. Lis Oakley RUBELLA AB IGGon 07-16-2022 Rubella Antibodies, IgG 1.94 index Normal Immune >0.99 [facility] [place] Comment on above: Result Comment: Non- immune <0.90 Equivocal 0.90 - 0.99 Immune >0.99 Performed By: #### R UBIGG #### [facility] [address] [place] [address] Dr. Lis Oakley CBC AUTO DIFFon 07-15-2022 BASO # 0.1 103/ul Normal 0.0-0.1 [facility] [place] Comment on above: Performed By: #### C BC #### [facility] [address] [place] [address] Dr. Lis Oakley Basophils/100 WBC (Bld) 0.5 % Normal 0.2-2.0 [facility] [place] Comment on above: Performed By: #### C BC #### [facility] [address] [place] [address] Dr. Lis Oakley EO # 0.2 103/ul Normal 0.0-0.7 [facility] Comment on above: Performed By: #### C BC #### [facility] [address] [place] [address] Dr. Lis Oakley Eosinophils/100 WBC (Bld) 1.6 % Normal 0.9-7.0 [facility] [place] Comment on above: Performed By: #### C BC #### [facility] [address] [place] [address] Dr. Lis Oakley Erythrocyte distribution width (RBC) [Ratio] 13.7 % Normal 11.0-15.0 [facility] [place] Comment on above: Performed By: #### C BC #### [facility] [address] [place] [address] Dr. Lis Oakley Hematocrit (Bld) [Volume fraction] 32.0 % Critically low 36.0-48.0 [facility] [place] Comment on above: Performed By: #### C BC #### [facility] [address] [place] [address] Dr. Lis Oakley Hemoglobin (Bld) [Mass/Vol] 10.1 g/dL Critically low 12.0-16.0 [facility] [place] Comment on above: Performed By: #### C BC #### [facility] [address] [place] [address] Dr. Lis Oakley IG # 0.09 10e3/ul Critically high 0.00-0.03 [facility] Comment on above: Performed By: #### C BC #### [facility] [address] [place] [address] Dr. Lis Oakley IG % 0.7 % Critically high 0.0-0.5 [facility] Comment on above: Performed By: #### C BC #### [facility] [address] [place] [address] Dr. Lis Oakley LYMPH # 2.4 103/ul Normal 1.2-3.8 [facility] [place] Comment on above: Performed By: #### C BC #### [facility] [address] [place] [address] Dr. Lis Oakley Lymphocytes/100 WBC (Bld) 19.5 % Critically low 20.5-60.0 [facility] Comment on above: Performed By: #### C BC #### [facility] [address] [place] [address] Dr. Lis Oakley MANUAL DIFF REQ NO Normal [facility] Comment on above: Performed By: #### C BC #### [facility] [address] [place] [address] Dr. Lis Oakley MCH (RBC) [Entitic mass] 25.6 pg Critically low 26.7-34.0 [facility] Comment on above: Performed By: #### C BC #### [facility] [address] [place] [address] Dr. Lis Oakley MCHC (RBC) [Mass/Vol] 31.6 g/dL Normal 29.9-35.2 [facility] Comment on above: Performed By: #### C BC #### [facility] [address] [place] [address] Dr. Lis Oakley MCV (RBC) [Entitic vol] 81.0 fL Normal 81.0-99.0 [facility] Comment on above: Performed By: #### C BC #### [facility] [address] [place] [address] Dr. Lis Oakley MONO # 0.8 103/ul Normal 0.3-0.8 [facility] Comment on above: Performed By: #### C BC #### [facility] [address] [place] [address] Dr. Lis Oakley Monocytes/100 WBC (Bld) 6.9 % Normal 1.7-12.0 [facility] Comment on above: Performed By: #### C BC #### [facility] [address] [place] [address] Dr. Lis Oakley NEUT # 8.6 103/ul Critically high 1.4-6.5 [facility] Comment on above: Performed By: #### C BC #### [facility] [address] [place] [address] Dr. Lis Oakley Neutrophils/100 WBC (Bld) 70.8 % Normal 43.0-75.0 [facility] Comment on above: Performed By: #### C BC #### [facility] [address] [place] [address] Dr. Lis Oakley Platelet mean volume (Bld) [Entitic vol] 10.0 fL Normal 9.5-13.5 [facility] Comment on above: Performed By: #### C BC #### [facility] [address] [place] [address] Dr. Lis Oakley PLT 315 103/ul Normal 150-450 [facility] Comment on above: Performed By: #### C BC #### [facility] [address] [place] [address] Dr. Lis Oakley RBC 3.95 106/ul Critically low 4.20-5.40 [facility] Comment on above: Performed By: #### C BC #### [facility] [address] [place] [address] Dr. Lis Oakley WBC 12.2 103/ul Critically high 4.0-11.0 [facility] Comment on above: Performed By: #### C BC #### [facility] [address] [place] [address] Dr. Lis Oakley CULTURE URINEon 07-15-2022 CULTURE URINE Culture Observations : MODERATE GROWTH OF MIXED GENITAL DORIAN. NO POTENTIAL PATHOGENS SEEN. Normal The [facility] Comment on above: Performed By: #### C BC #### [facility] [address] [place] [address] Dr. Lis Oakley GLYCOHEMOGLOBIN A1Con 2022 ADA RECOMMENDATION SEE BELOW Normal [facility] Comment on above: Result Comment: ADA RECOMMENDED LIMIT 4.0 - 6.0 ADA THERAPEUTIC TARGET < 7.0 ACTION SUGGESTED > 7.0 Performed By: #### C BC #### [facility] [address] [place] [address] Dr. Lis Oakley Glucose [Mass/Vol] 114 mg/dL Normal [facility] Comment on above: Performed By: #### C BC #### [facility] [address] [place] [address] Dr. Lis Oakley HbA1c (Bld) [Mass fraction] 5.6 % Normal 4.5-6.2 [facility] Comment on above: Performed By: #### C BC #### [facility] [address] [place] [address] Dr. Lis Oakley TYPE AND SCREENon 07-15-2022 TYPE AND SCREEN Negative Normal The [facility] Comment on above: Performed By: #### T NS #### [facility] [address] [place] [address] Dr. Lis Oakley CBC AUTO DIFFon 06-17-2022 BASO # 0.1 103/ul Normal 0.0-0.1 [facility] Comment on above: Performed By: #### C BC #### [facility] [address] [address] [address] Lis Oakley Basophils/100 WBC (Bld) 0.5 % Normal 0.2-2.0 [facility] Comment on above: Performed By: #### C BC #### [facility] [address] [address] [address] Lis Oakley EO # 0.1 103/ul Normal 0.0-0.7 [facility] Comment on above: Performed By: #### C BC #### [facility] [address] [place] [address] Dr. Lis Oakley Eosinophils/100 WBC (Bld) 1.3 % Normal 0.9-7.0 [facility] Comment on above: Performed By: #### C BC #### [facility] [address] [place] [address] Dr. Lis Oakley Erythrocyte distribution width (RBC) [Ratio] 13.9 % Normal 11.0-15.0 [facility] Comment on above: Performed By: #### C BC #### [facility] [address] [place] [address] Dr. Lis Oakley Hematocrit (Bld) [Volume fraction] 31.8 % Critically low 36.0-48.0 [facility] Comment on above: Performed By: #### C BC #### [facility] [address] [place] [address] Dr. Lis Oakley Hemoglobin (Bld) [Mass/Vol] 10.3 g/dL Critically low 12.0-16.0 [facility] Comment on above: Performed By: #### C BC #### [facility] [address] [place] [address] Dr. Lis Oakley IG # 0.07 10e3/ul Critically high 0.00-0.03 [facility] Comment on above: Performed By: #### C BC #### [facility] [address] [place] [address] Dr. Lis Oakley IG % 0.7 % Critically high 0.0-0.5 [facility] Comment on above: Performed By: #### C BC #### [facility] [address] [place] [address] Dr. Lis Oakley LYMPH # 1.7 103/ul Normal 1.2-3.8 [facility] Comment on above: Performed By: #### C BC #### [facility] [address] [place] [address] Dr. Lis Oakley Lymphocytes/100 WBC (Bld) 16.0 % Critically low 20.5-60.0 [facility] Comment on above: Performed By: #### C BC #### [facility] [address] [place] [address] Dr. Lis Oakley MANUAL DIFF REQ NO Normal The [facility] Comment on above: Performed By: #### C BC #### [facility] [address] [place] [address] Dr. Lis Oakley MCH (RBC) [Entitic mass] 26.7 pg Normal 26.7-34.0 [facility] Comment on above: Performed By: #### C BC #### [facility] [address] [place] [address] Dr. Lis Oakley MCHC (RBC) [Mass/Vol] 32.4 g/dL Normal 29.9-35.2 [facility] Comment on above: Performed By: #### C BC #### [facility] [address] [place] [address] Dr. Lis Oakley MCV (RBC) [Entitic vol] 82.4 fL Normal 81.0-99.0 [facility] Comment on above: Performed By: #### C BC #### [facility] [address] [place] [address] Dr. Lis Oakley MONO # 0.6 103/ul Normal 0.3-0.8 [facility] Comment on above: Performed By: #### C BC #### [facility] [address] [place] [address] Dr. Lis Oakley Monocytes/100 WBC (Bld) 5.5 % Normal 1.7-12.0 [facility] Comment on above: Performed By: #### C BC #### [facility] [address] [place] [address] Dr. Lis Oakley NEUT # 8.2 103/ul Critically high 1.4-6.5 [facility] Comment on above: Performed By: #### C BC #### [facility] [address] [place] [address] Dr. Lis Oakley Neutrophils/100 WBC (Bld) 76.0 % Critically high 43.0-75.0 [facility] Comment on above: Performed By: #### C BC #### [facility] [address] [place] [address] Dr. Lis Oakley Platelet mean volume (Bld) [Entitic vol] 9.6 fL Normal 9.5-13.5 [facility] Comment on above: Performed By: #### C BC #### [facility] [address] [place] [address] Dr. Lis Oakley PLT 329 103/ul Normal 150-450 [facility] Comment on above: Performed By: #### C BC #### [facility] [address] [place] [address] Dr. Lis Oakley RBC 3.86 106/ul Critically low 4.20-5.40 [facility] Comment on above: Performed By: #### C BC #### [facility] [address] [place] [address] Dr. Lis Oakley WBC 10.7 103/ul Normal 4.0-11.0 [facility] Comment on above: Performed By: #### C BC #### [facility] [address] [place] [address] Dr. Lis Oakley GLUCOSE - 1HRon 06-17-2022 Glucose [Mass/Vol] 123 mg/dL Critically high 74-106 [facility] Comment on above: Performed By: #### R UBIGG #### [facility] [address] [place] [address] Dr. Lis Oakley US PREG ANATOMY SINGLEon [...] RADHA ARORA Date: 2022-05-29 16:12 Normal [facility] AFP MATERNAL FOR SPINA BIFID Aon 05-22-2022 AFP MoM See interpretation. Normal [facility] Comment on above: Performed By: #### A FPMAT #### [facility] [address] [address] [address] Lis Oakley AFP Value 71.3 ng/mL Normal [facility] Comment on above: Performed By: #### A FPMAT #### [facility] [address] [address] [address] Lis Oakley AFP, Serum for Spina Bifida Report Normal [facility] Comment on above: Performed By: #### A FPMAT #### [facility] [address] [address] [address] Lis Oakley Comment Comment Normal [facility] Comment on above: Result Comment: Michelle Saldaña, Ph.D., [facility] Director . References: Available Upon Request. . Multiples Of Median Cutoffs For AFP Elevations Brooks 2.5 Black 2.8 IDD 2.0 Twins 4.5 Abbreviation Definitions IDD - Insulin Dep Diabetes OSBR - Open Spina Bifida Risk . For further inquiries contact [employer] at [phone]. . This test was developed and its performance characteristics determined by [employer]. It has not been cleared or approved by the Food and Drug Administration. Performed By: #### A FPMAT #### [facility] [address] [address] [address] Lis Oakley Gest Age Collection Date 24.7 weeks Normal [facility] Comment on above: Performed By: #### A FPMAT #### [facility] [address] [address] [address] Lis Oalkey Gestat, Age Based on BAL[place] Normal [facility] Comment on above: Result Comment: 09/2022 Recalculations are not recommended when gestational dating by LMP and ultrasound are within 10 days. Performed By: #### A FPMAT #### [facility] [address] [address] [address] Lis Oakley Insulin Dep Diabetes No Normal [facility] Comment on above: Performed By: #### A FPMAT #### [facility] [address] [address] [address] Lis Oakley Interpretation Comment Normal [facility] Comment on above: Result Comment: Inte rpretation: An interpretation CANNOT be provided for this patient due to one of the following reasons: 1. Gestational age is <15 weeks. Please submit a second sample at the optimum gestational age for screening (16-18 weeks). OR 2. Gestational age is greater than 23 weeks. Performed By: #### A FPMAT #### [facility] [address] [address] [address] Lis Oakley [age][place] [age] Normal [facility] Comment on above: Performed By: #### A FPMAT #### [facility] [address] [address] [address] Lis Oakley Multiple Gestation No Normal [facility] Comment on above: Performed By: #### A FPMAT #### [facility] [address] [address] [address] Lis Oakley OSBR Risk 1 IN See interpretation. Normal [facility] Comment on above: Performed By: #### A FPMAT #### [facility] [address] [place] [address] Dr. Lis Oakley PDF . [facility] Comment on above: Performed By: #### A FPMAT #### [facility] [address] [place] [address] Dr. Lis Oakley Race [facility] Comment on above: Performed By: #### A FPMAT #### [facility] [address] [place] [address] Dr. Lis Oakley Test Results: See interpretation. Normal [facility] Comment on above: Performed By: #### A FPMAT #### [facility] [address] [place] [address] Dr. Lis Oakley US PREG TVon 01-30-2022 [...] NESTOR NELSON Date: 2022-01-30 16:13 Normal [facility] Vital Signs Date Time Vital Sign Value Performing Clinician Nata العلي 05-22-2022 16:07-0500 Body weight 93.4416 kg ALESSANDRO CHRISTOPHER [facility] Comment on above: Performed By: #### A FPMAT #### [facility] [address] [address] [address] Lis Oakley Encounters Encounter Date Encounter [...] CHRISTOPHER Payers Date Payer Category Payer Unknown [id number] 2.16.84 [id number] 2000 Unknown [id number] 2.16.84 [id number] 2000 Unknown [id number] 2.16.84 [id number] 2000 Unknown [id number] 2.16.84 [id number] 2000 Unknown [id number] 2.16.84 [id number] 2000 Unknown [id number] 2.16.84 [id number] 2000 Unknown [id number] 2.16.84 [id number] 2000 Unknown [id number] 2.16.84 [id number] 2000 Unknown [id number] 2.16.84 [id number] 2000 Unknown [id number] 2.16.84 [id number] 1959 Self-pay 1959 Unknown [id number] 1959 Unknown [id number] Clinical Note 08-27-2022 Note Date & Type Note Facility 08-27-2022 Note OPERATIVE NOTE OPERATION DATE: 08/28/2022 PROCEDURE: Primary low transverse section. PREOPERATIVE DIAGNOSIS: 1. Intrauterine at 39 weeks. 2. Failure to dilate. 3. Failure to descend. POSTOPERATIVE DIAGNOSIS: 1. Intrauterine at 39 weeks. 2. Failure to dilate. 3. Failure to descend. ANESTHESIA: Spinal. SURGEON: Alessandro Greer D.O. EVENTS SPECIALIST: GABY Lou URINE OUTPUT: Yellow and clear. [...] and cut. Cord blood was obtained. The was handed off to awaiting team. The [...] the Recovery Room in stable condition. The [facility] Discharge summary note 08-27-2022 Note Date [...] free and no longer on narcotics. The [facility] Summary Purpose Family History No Family History Records Found Advance Directives No Advanced Directives Records Found Additional Source Comments INFORMATION SOURCE (unrecogn ized section and content) DATE CREATED AUTHOR 09/25/[address] [facility] FOR RECORDS PERTAINING TO PATIENTS WHO [...] BE BASED ON THE PRIMARY CLINICAL RECORDS. [employer] [facility]. provides no warranty or guarantee of the accuracy or completeness of information in this document.
[2024-06-16 12:25] LABS: HCG Quantitative 4 mIU/mL
== END 2024-07-01 12:33 | disposition home or self-care (01) ==
LOC: LAB 10:41
PROVIDERS: Visit Provider Obstetrics & Gynecology
DX: Z51.89 Encounter for other specified aftercare (principal); O03.9 Complete or unspecified spontaneous abortion without complication
CPT/HCPCS: 36415; 84702

== ENCOUNTER 2025-01-03 14:56 | Outpatient (OUT) | payer OTHER, SELFPAY ==
[2025-01-03 15:56] LABS: Hematocrit 36.4 % (36.0-48.0); Hemoglobin 12.1 g/dL (12.0-16.0); Immature Granulocytes Abs Auto 0.07 10^3/uL (0.00-0.03); Immature Granulocytes Pct Auto 0.6 % (0.0-0.5); Lymphocytes Absolute Auto 2.6 10^3/uL (1.2-3.8); Mean Corpuscular HGB Conc 33.2 g/dL (29.9-35.2); Mean Corpuscular Hemoglobin 26.9 pg (26.7-34.0); Mean Corpuscular Volume 81.1 fL (81.0-99.0); Platelet Count 231 10^3/uL (150-450); Red Blood Count 4.49 10^6/uL (4.20-5.40); White Blood Count 12.6 10^3/uL (4.0-11.0)
[2025-01-03 16:00] LABS: Cannabinoid Screen Urine NEGATIVE (NEGATIVE); Methamphetamines Screen Urine NEGATIVE (NEGATIVE)
[2025-01-03 16:01] LABS: Tricyclic Antidepressant Urine NEGATIVE (NEGATIVE)
[2025-01-05 08:11] LABS: Rubella Antibodies, IgG 2.02 index (Immune >0.99)
[2025-01-05 12:09] LABS: Rapid Plasma Reagin, Quant Non Reactive titer (NonRea<1:1)
== END 2025-01-03 14:57 | disposition home or self-care (01) ==
LOC: LAB 14:58
PROVIDERS: Visit Provider Obstetrics & Gynecology
DX: Z34.01 Encounter for supervision of normal first pregnancy, first trimester (principal); N92.6 Irregular menstruation, unspecified
CPT/HCPCS: 36415; 80307; 83036; 85025; 86592; 86762; 86803; 86850; 86900; 86901; 87086; 87340; 87389

== ENCOUNTER 2025-01-05 19:34 | Outpatient (REF) | payer OTHER, SELFPAY ==
--- OUTSIDE RECORDS SUMMARY | 2025-01-05 10:50 | XMS_ITS | Encounter Summary ---
Author Organization [facility] Address [address] [place] [address] Care Team Providers Care Enterprise Analyst Name Role Phone Unavailable Primary Care Provider Unavailabl e Reason for Visit * Reason Comments Routine Visit Well Women Visit STI Screening Encounter Details Date Type Department Care Team (Latest Contact Info) Description 01/05/2025 10:50 AM EDT Routine [facility] [address] [place] [id number] Amandeep Greer DO [address] [place] [address] 16 weeks gestation of ([facility]); Second trimester ([facility]); Subchorionic hemorrhage in first trimester ([facility]); Screening, , for anatomic survey ([facility]); Exposure to STD; Vaginal discharge; Well woman exam with routine gynecological exam Social History Tobacco Use Types Packs/Day Years Used Date Smoking Tobacco: Never Assessed Estimated Date of Delivery Comme nts Yes 06/19/2025 Based on Ultraso und Sex and Gender Information Value Date Recorded Sex Assigned at Not on file Legal Sex Female 11:46 PM EDT Gender Identity Not on file Sexual Orientation Not on file documented as of this encounter Last Filed Vital Signs Vital Sign Reading Time Taken Comments Blood Pressure 110/64 01/05/2025 11:07 AM EDT Pulse - - Temperature - - Respiratory Rate - - Oxygen Saturation - - Inhaled Oxygen Concentration - - Weight 88.1 kg (194 lb 1.9 oz) 01/05/2025 11:07 AM EDT Height - - Body Mass Index 35.51 11/03/2024 2:18 PM EDT documented in this encounter Progress Notes * Mariah Covarrubias, SHIFT COORDINATOR - 01/05/2025 10:50 AM EDT Reason for Appointment: Patient ID: Lisa Anderson is a 24 y.o. female who presents for Routine Visit, Well Women Visit, and STI Screening Patient presents today for Annual Exam. and Return OB appointment. MEDICATIONS Current Outpatient Medications Medication Instructions MV-Min-Fe Fum-FA-DHA ( 1 PO) Take by mouth ALLERGIES No Known Allergies PROBLEMS Active Ambulatory Problems Diagnosis Date Noted No Active Ambulatory Problems Resolved Ambulatory Problems Diagnosis Date Noted No Resolved Ambulatory Problems No Additional Past Medical History HISTORY PAST MEDICAL HISTORY SOCIAL HISTORY History reviewed. No pertinent past medical history. Social History Tobacco Use Smoking status: Not on file Smokeless tobacco: Not on file Substance Use Topics Alcohol use: Not on file Drug use: Not on file FAMILY HISTORY No family history on file. SURGICAL HISTORY Past Surgical History: Procedure Laterality Date SECTION, CLASSIC 08/28/2022 REVIEW OF SYSTEMS Review of Systems: Review of Systems Constitutional: Negative. HENT: Negative. Eyes: Negative. Respiratory: Negative. Cardiovascular: Negative. Gastrointestinal: Negative. Genitourinary: Negative. Musculoskeletal: Negative. Skin: Negative. Neurological: Negative. All other systems reviewed and are negative. Hematological: Negative. Endocrine: Negative. Allergic/Immunologic: Negative. OBJECTIVE Objective: Physical Exam Constitutional: Appearance: Normal appearance. She is well-developed. Genitourinary: Vulva normal. Breasts: Breasts are soft. Right: Normal. Left: Normal. Cardiovascular: Rate and Rhythm: Normal rate and regular rhythm. Pulmonary: Effort: Pulmonary effort is normal. Breath sounds: Normal breath sounds. Abdominal: General: Bowel sounds are normal. There is no distension. Palpations: Abdomen is soft. Tenderness: There is no abdominal tenderness. There is no guarding or rebound. Musculoskeletal: General: No swelling. Normal range of motion. Right lower leg: No edema. Left lower leg: No edema. Neurological: Mental Status: She is alert and oriented to person, place, and time. Skin: General: Skin is warm and dry. Psychiatric: Mood and Affect: Mood normal. Behavior: Behavior normal. Vitals and nursing note reviewed. Exam conducted with a mold stripper present. Vitals: Estimated body mass index is 35.51 kg/m?? as calculated from the following: Height as of 25: 5' 2 . Weight as of this encounter: 194 lb 1.9 oz. BP: 110/64 Patient's last menstrual period was 09/06/2024. ASSESSMENT & PLAN ICD-10-CM 1. 16 weeks gestation of ([facility]) Z3A.16 POCT urinalysis dipstick manually resulted Alpha fetoprotein, maternal Alpha fetoprotein, maternal 2. Second trimester ([facility]) Z34.92 POCT urinalysis dipstick manually resulted Alpha fetoprotein, maternal Alpha fetoprotein, maternal 3. Subchorionic hemorrhage in first trimester ([facility]) O20.8 4. Screening, , for anatomic survey ([facility]) Z36.89 US OB 14+ weeks anatomy scan US OB 14+ weeks anatomy scan 5. Exposure to STD Z20.2 CHLAMYDIA TRACHOMATIS (GENITO/STI) Neisseria gonorrhea DNA probe, direct 6. Vaginal discharge N89.8 SURESWAB(R) ADVANCED VAGINITIS PLUS, TMA 7. Well woman exam with routine gynecological exam Z01.419 Pap Smear Return OB/Annual Exam: Patient presents today for a annual exam/routine obstetrics appointment. Patient is currently [id number]. Patient states she is doing well but has complaints of nausea in the morning. Pap and cultures was obtained without difficulty and patient was given orders for anatomy scan and msAFP to be obtained. Orders Placed This Encounter Procedures US OB 14+ weeks anatomy scan CHLAMYDIA TRACHOMATIS (GENITO/STI) Neisseria gonorrhea DNA probe, direct Alpha fetoprotein, maternal POCT urinalysis dipstick manually resulted Follow Up: Patient is to schedule annual exam for next year and return to office in 4 weeks for OB appointment. Documented by Mariah Covarrubias LPN on behalf of: Amandeep Greer DO documented in this encounter Plan of Treatment Upcoming Encounters Date Type Department Care Team (Late st Contact Info) Description 02/06/2025 1:00 PM EDT Ancillary Procedure [facility] [address] [place] [address] [place] [address] 02/06/2025 2:00 PM EDT Routine [facility] [address] [place] [address] Martha Melara PA [address] [place] [address] Scheduled Orders Name Type Priority Associated Diagnoses Orde r Schedule SURESWAB(R) ADVANCED VAGINITIS PLUS, TMA Pathology and Cytology Routine Vaginal discharge Ordered: 01/05/2025 CHLAMYDIA TRACHOMATIS (GENITO/STI) Lab Routine Exposure to STD Ordered: 01/05/2025 Neisseria gonorrhea DNA probe, direct Lab Routine Exposure to STD Ordered: 01/05/2025 Pap Smear Pathology and Cytology Routine Well woman exam with routine gynecological exam Ordered: 01/05/2025 US OB 14+ weeks anatomy scan Imaging Routine Screening, , for anatomic survey ([facility]) Expected: 01/05/2025, Expires: 04/07/2025 Alpha fetoprotein, maternal Lab Routine 16 weeks gestation of ([facility]) Second trimester ([facility]) Expected: 01/05/2025 (Approximate), Expires: 02/05/2025 documented as of this encounter Procedures Procedure Name Priority Date/Time Associated Diagnosis Comments POCT URINALYSIS DIPSTICK Routine 01/05/2025 11:13 AM EDT 16 weeks gestation of ([facility]) Second trimester ([facility]) documented in this encounter Results * POCT urinalysis dipstick manually resulted (01/05/2025 11:13 AM EDT) Color, UA Yellow Clarity, UA Clear Glucose, UA Negative Negative - 1999(110) ++++ mg/dL Bilirubin, UA Negative Negative - 4(70) +++ mg/dL Ketones, UA Negative Negative - 160(16) ++++ mg/dL Spec Grav, UA 1.020 1 - 1.03 Blood, UA Negative Negative - 50 Sukumar/mcL pH, UA 6.0 5 - 9 Protein, UA Negative Negative - 1999(20) ++++ mg/dL Urobilinogen, UA 1.0 0.2 - 12 mg/dL Leukocytes, UA Negative Negative - 500+++ Dev/mcL Nitrite, UA Negative Negative - Positive Urine 01/05/2025 11:1 3 AM EDT Amandeep Greer DO POINT OF CARE TEST ENTER/EDIT OR DERABLES Final Result documented in this encounter Visit Diagnoses Diagnosis 16 weeks gestation of ([facility]) Second trimester ([facility]) state, incidental Subchorionic hemorrhage in first trimester ([facility]) Screening, , for anatomic survey ([facility]) Encounter for anatomic survey Exposure to STD Vaginal discharge Leukorrhea, not specified as infective Well woman exam with routine gynecological exam Routine gynecological examination documented in this encounter
--- OUTSIDE RECORDS SUMMARY | 2025-01-05 19:38 | XMS_ITS | Encounter Summary ---
Author Organization [facility] Address [address] [place] [address] Care Team Providers Care Plastic Sheets Supervisor Name Role Phone Unavailable Primary Care Provider Unavailabl e Encounter Details Date Type Department Care Team (Late Contact Info) Description 05/17/2024 Abstract [facility] [address] [place] [address] Amandeep Greer DO [address], [id number] Social History Tobacco Use Types Packs/Day Years Used Date Smoking Tobacco: Never Assessed Comments Unknown Sex and Gender Information Value Date Recorded Sex Assigned at Not on file Legal Sex Female 11:46 PM EDT Gender Identity Not on file Sexual Orientation Not on file documented as of this encounter Plan of Treatment Upcoming Encounters Date Type Department Care Team (Late st Contact Info) Description 02/06/2025 1:00 PM EDT Ancillary Procedure [facility] [place] [address] [place] [address] 02/06/2025 2:00 PM EDT Routine [facility] [address] [place] [address] Martha Melara PA [address] [place], [place] [id number] documented as of this encounter Visit Diagnoses Not on filedocumented in this encounter
--- OUTSIDE RECORDS SUMMARY | 2025-01-05 19:38 | XMS_ITS | Encounter Summary ---
Author Organization [facility] Address [address] [place] [address] Care Team Providers Care Switchboard Operator Receptionist Name Role Phone Unavailable Primary Care Provider Unavailabl e Encounter Details Date Type Department Care Team (Late Contact Info) Description 01/05/2025 Bamboo flowsheet HEMALATHA PEREA [address] [place] [address] [place] [address] Amandeep Greer DO [address] [facility] [address] Christy Hoyt, [facility]11 Social History Tobacco Use Types Packs/Day Years [...] Encounters Date Type Department Care Team (Late Contact Info) Description 02/06/2025 1:00 PM EDT Ancillary Procedure HEMALATHA PEREA [address] [place] [address] [place] [address] 02/06/2025 2:00 PM EDT Routine HEMALATHA PEREA [address] [place] [address] [place] [address] Martha Melara PA [address] [facility] [address] [place], [place] [phone] documented as of this encounter Visit Diagnoses Not on filedocumented in this encounter
--- OUTSIDE RECORDS SUMMARY | 2025-01-05 19:38 | XMS_ITS | Encounter Summary ---
Author Organization [facility] Address [address] [place] [address] Care Team Providers Care Program Research Specialist Name Role Phone Unavailable Primary Care Provider Unavailabl e Encounter Details Date Type Department Care Team (Late Contact Info) Description 05/17/2024 Abstract HEMALATHA PEREA [address] [place] [address] Amandeep Greer DO [address] H[address]t, [facility]11 Social History Tobacco Use Types Packs/Day [...] 1:00 PM EDT Ancillary Procedure HEMALATHA PEREA [facility] [place] [address] 02/06/2025 2:00 PM EDT Routine HEMALATHA PEREA [address] [place] [address] Martha Melara PA [address] [place], [place] [id number] documented as of this encounter Visit Diagnoses Not on filedocumented in this encounter
--- OUTSIDE RECORDS SUMMARY | 2025-01-05 19:38 | XMS_ITS | Encounter Summary ---
Author Organization [facility] Address [address] [place] [address] Care Team Providers Care Housekeeping Aid Name Role Phone Unavailable Primary Care Provider Unavailabl e Encounter Details Date Type Department Care Team (Late st Contact Info) Description 05/20/2024 Clinisync Result Encounter [facility] External Department Unsolicited Alessandro Greer DO [address] [facility] [address] Christy Hoyt, [facility]11 Social History Tobacco Use Types Packs/Day Years [...] Description 02/06/2025 1:00 PM EDT Ancillary Procedure NOMSatish PEREA [address] [facility] [place] [phone] 02/06/2025 2:00 PM EDT Routine NOMSatish PEREA [address] [facility] [place] [phone] Martha Melara PA [address] [facility] [address] [place], [place] [phone] documented as of this encounter Procedures Procedure Name Priority Date/Time Associated Diagnosis Comments US PELVIS TRANSVAGINAL 05/20/2024 11:34 AM EST documented in this encounter Results * US PELVIS TRANSVAGINAL (05/20/2024 11:34 AM EST) Anatomical Region Laterality Modality Other 05/20/2024 11:3 4 AM EST Narrative 05/20/2024 2:44 [place] [address] Ultrasound Report Signed Patient: LISA ANDERSON MR#: [id number] : 2000 Acct:[id number] Age/Sex: 24 / F ADM Date: 05/19/24 Loc: [facility] Attending Dr: Alessandro Greer D.O. Ordering Physician: Alessandro Greer D.O. Date of Service: 05/19/24 Procedure(s): US pelvis transvaginal Accession Number(s): [id number] cc: Alessandro Greer D.O.; Physician,Non-Staff [place] [address] Patient Name: LISA ANDERSON MRN: [id number] date: 2000 Sex: F Assigned Patient Location: [facility] Current Patient Location: Accession/Order Number: [id number] Exam Date: 05/19/2024 13:01 Report Date: 05/20/2024 11:34 At the request of: ALESSANDRO GREER Procedure: US pelvis transvaginal EXAMINATION: US pelvis transvaginal HISTORY: VAGINAL BLEEDING THREATENED COMPARISON: No relevant comparison available. FINDINGS: No intrauterine or ectopic is observed The uterus is normal, anteverted The endometrium measures 1.3 cm. The right ovary measures 3.0 x 1.8 x 2.3 cm. 2.6 cm cyst. The left ovary measures 2.8 x 1.6 x 3.5 cm The cervix measures 3.7 cm, closed US/US pelvis transvaginal IMPRESSION: No intrauterine or ectopic observed. Electronically authenticated by: RADHA ARORA Date: 05/20/2024 11:34 Dictated By: Radha Arora M.D. Signed By: 05/20/24 1444 DD/ 1134 TD/TT: Mica Inspector: Procedure Note Radiology, Radiologist, MD - 05/20/2024 [place] [address] Ultrasound Report Signed Patient: LISA ANDERSON BMR#: [id number] : 2000Acct:[id number] Age/Sex: 24 / FADM Date: 05/19/24 Loc: [facility] Attending Dr: Alessandro Greer D.O. Ordering Physician: Alessandro Greer D.O. Date of Service: 05/19/24 Procedure(s): US pelvis transvaginal Accession Number(s): [id number] cc: Alessandro Greer D.O.; Physician,Non-Staff [place] [address] Patient Name: LISA ANDERSON MRN: [id number] date: 2000 Sex: F Assigned Patient Location: [facility] Current Patient Location: Accession/Order Number: [id number] Exam Date: 05/19/2024 13:01 Report Date: 05/20/2024 11:34 At the request of: ALESSANDRO GREER Procedure: US pelvis transvaginal EXAMINATION: US pelvis transvaginal HISTORY: VAGINAL BLEEDING THREATENED COMPARISON: No relevant comparison available. FINDINGS: No intrauterine or ectopic is observed The uterus is normal, anteverted The endometrium measures 1.3 cm. The right ovary measures 3.0 x 1.8 x 2.3 cm. 2.6 cm cyst. The left ovary measures 2.8 x 1.6 x 3.5 cm The cervix measures 3.7 cm, closed US/US pelvis transvaginal IMPRESSION: No intrauterine or ectopic observed. Electronically authenticated by: RADHA ARORA Date: 05/20/2024 11:34 Dictated By: Radha Arora M.D. Signed By:05/20/24 1444 DD/ 1134 TD/TT: Mica Inspector: us Alessandro Greer DO [facility] Final Result documented in this encounter Visit Diagnoses Not on filedocumented in this encounter
--- OUTSIDE RECORDS SUMMARY | 2025-01-05 19:38 | XMS_ITS | Clinical Summary ---
Author Organization [facility] Address [address] [place] [address] Care Team Providers Care Shredder Tender Name Role Phone Unavailable Primary Care Provider Unavailabl e Allergies No known active allergies Medications MV-Min-Fe Fum-FA-DHA ( 1 PO) Take by mouth Active ondansetron ODT (Zofran-ODT) 4 MG disintegrating tabletIndications: Nausea Take 1 tablet (4 mg) by mouth every 8 (eight) hours if needed for nausea or vomiting 30 tablet 2 5 01/05/20 25 magnesium oxide (Mag-Ox) 400 MG tabletIndications: Nonintractable headache, unspecified chronicity pattern, unspecified headache type Take 1 tablet (400 mg) by mouth Daily 30 tablet 6 5 01/05/20 25 Encounters Date Type Department Care Team Description 01/05/2025 10:50 AM ED[place] [address] Amandeep Greer DO 16 weeks gestation of ([facility]); Second trimester ([facility]); Subchorionic hemorrhage in first trimester ([facility]); Screening, , for anatomic survey ([facility]); Exposure to STD; Vaginal discharge; Well woman exam with routine gynecological exam 01/05/2025 Bamboo flowsheet [facility] PEREA [address] [place] [address] Amandeep Greer DO 01/03/2025 Clinisync Result Encounter [facility] External Department Unsolicited Amandeep Greer DO 12/05/2024 11:10 AM EDT Routine [facility] [address] [place] [address] Amandeep Greer DO Nausea (Primary Dx); First trimester ([facility]); 12 weeks gestation of ([facility]); Nonintractable headache, unspecified chronicity pattern, unspecified headache type 12/05/2024 Bamboo flowsheet [facility] [address] [place] [address] Amandeep Greer DO 11/10/2024 3:00 PM EDT Ancillary Procedure [facility] [place] [phone] Subchorionic hemorrhage in first trimester ([facility]) 11/07/2024 Telephone [facility] [place] [address] Elizabeth Tsang MA 11/03/2024 1:30 PM EDT Initial [facility] [address] [place] [address] GA: 7w3d 11/03/2024 1:00 PM EDT Ancillary Procedure [facility] [address] [place] [address] Missed menses 10/06/2024 Telephone [facility] [address] [place] [address] Amandeep Greer DO from Last 3 Months Family History Relation Name Status Comments Brother Alive Father Alive Mother Alive Sister Alive Social History Tobacco Use Types Packs/Day Years Used Date Smoking Tobacco: Never Assessed Estimated Date of Delivery Comme nts Yes 06/19/2025 Based on Ultraso und Sex and Gender Information Value Date Recorded Sex Assigned at Not on file Legal Sex Female 11:46 PM EDT Gender Identity Not on file Sexual Orientation Not on file Last Filed Vital Signs Vital Sign Reading Time Taken Comments Blood Pressure 110/64 01/05/2025 11:07 AM EDT Pulse - - Temperature - - Respiratory Rate - - Oxygen Saturation - - Inhaled Oxygen Concentration - - Weight 88.1 kg (194 lb 1.9 oz) 01/05/2025 11:07 AM EDT Height 157.5 cm (5' 2 ) 11/03/2024 2:18 PM EDT Body Mass Index 35.51 11/03/2024 2:18 PM EDT Plan of Treatment Upcoming Encounters Date Type Department Care Team (Late st Contact Info) Description 02/06/2025 1:00 PM EDT Ancillary Procedure [facility] O[facility] [address] [place] [address] 02/06/2025 2:00 PM EDT Routine [facility] PEREA [address] [place] [address] Martha Melara PA [address] [facility] [place] [address] Procedures Procedure Name Priority Date/Time Associated Diagnosis Comments POCT URINALYSIS DIPSTICK Routine 01/05/2025 11:13 AM EDT 16 weeks gestation of ([facility]) Second trimester ([facility]) HBSAG SCREEN Routine 01/03/2025 3:36 PM EDT RAPID PLASMA REAGIN, QUANT Routine 01/03/2025 3:36 PM EDT HCV ANTIBODY RFX TO QUANT PCR Routine 01/03/2025 3:36 PM EDT ALL RUBELLA IGG AB Routine 01/03/2025 3: 36 PM EDT HIV AB/P24 AG WITH REFLEX Routine 01/03/2025 3:36 PM EDT ALL TYPE AND SCREEN Routine 01/03/2025 3 :36 PM EDT MLR HEMOGLOBIN A1C Routine 01/03/2025 3: 36 PM EDT ALL CBC WITH AUTO DIFF Routine 01/03/2025 3:36 PM EDT BOX TEST Routine 01/03/2025 3:36 PM EDT [facility] DRUG SCREEN RAPID (URINE) Routine 01/03/2025 3:06 PM EDT POCT URINALYSIS DIPSTICK Routine 12/05/2024 11:29 AM EDT First trimester ([facility]) US OB TRANSVAGINAL Routine 11/10/2024 3: 39 PM EDT Subchorionic hemorrhage in first trimester ([facility]) POCT , URINE Routine 11/03/2024 2:23 PM EDT Missed menses POCT URINALYSIS DIPSTICK Routine 11/03/2024 2:22 PM EDT Missed menses US OB TRANSVAGINAL Routine 11/03/2024 1: 32 PM EDT Missed menses from Last 3 Months Results * POCT urinalysis dipstick manually resulted (01/05/2025 11:13 AM EDT) Only the most recent of3 resultswithin the time period is included. Color, UA Yellow Clarity, UA Clear Glucose, [...] Urine 01/05/2025 11:1 3 AM EDT Amandeep Zoey DO POINT OF CARE TEST ENTER/EDIT OR DERABLES Final Result * BOX TEST (01/03/2025 3:36 PM EDT) BOX TEST SENT OUT [facility] BOX1 [facility] BOX2 01/03/25 [facility] 01/03/2025 3:36 PM EDT 01/03/2025 3:46 PM EDT Narrative [facility] - 01/03/2025 3:51 PM EDT [facility] BLOOD ORDERABLES Final Resul t Performing Organization Address [facility] Co de Phone Number [facility] * HBSAG SCREEN (01/03/2025 3:36 PM EDT) Pathologist [facility] HBSAG SCREEN Negative Negative [facility] Comment: Performed at: - Lab[address] [id number] Patient Services Rep: Brock Can PhD, Phone: [phone] 01/03/2025 3:36 PM EDT 01/03/2025 3:46 PM EDT Narrative [facility] - 01/05/2025 12:09 PM EDT [facility] LAB BLOOD ORDERABLES Final Resul t Performing Organization Address [facility]/ZIP Co de Phone Number [facility] * RAPID PLASMA REAGIN, QUANT (01/03/2025 3:36 PM EDT) Pathologist [facility] RAPID PLASMA REAGIN, QUANT Non Reactive NonRea<1: 1 titer [facility] Comment: Please Note: This test does not meet current guidelines for screening and diagnosis of syphilis. This test is intended for following treatment response in patients being treated for syphilis infection. To screen for syphilis infection, a reflex cascade that includes both RPR and a treponema-specific assay should be utilized, such as Treponema pallidum (Syphilis) Screening [place] (610611) or Rapid Plasma Reagin (RPR) Test With Reflex to Quantitative RPR and Confirmatory Treponema pallidum Antibodies (680726). Performed at: [address] [id number] Patient Services Rep: Brock Can PhD, Phone: [phone] 01/03/2025 3:36 PM EDT 01/03/2025 3:46 PM EDT Narrative CLINISYID - 01/05/2025 12:09 PM EDT Amandeep Zoey DO LAB BLOOD ORDERABLES Final Resul t Performing Organization Address [facility] Co de Phone Number [facility] * HIV AB/P24 AG WITH REFLEX (01/03/2025 3:36 PM EDT) HIV AB/P24 AG SCREEN Non Reactive Non Reactive TB Comment: HIV-1/HIV-2 antibodies and HIV-1 p24 antigen were NOT detected. There is no laboratory evidence of HIV infection. HIV Negative Performed at: [address] [id number] Patient Services Rep: Brock Can PhD, Phone: [phone] 01/03/2025 3:36 PM EDT 01/03/2025 3:46 PM EDT Narrative CLINISY[facility] - 01/05/2025 5:07 AM EDT [facility] DO LAB BLOOD ORDERABLES Final Resul t Performing Organization Address [facility]/ZIP Co de Phone Number [facility] * HCV ANTIBODY RFX TO QUANT PCR (01/03/2025 3:36 PM EDT) HCV AB Non Reactive Non Reactive TB INTERPRETATION: Comment . TB Comment: Not infected with HCV unless early or acute infection is suspected (which may be delayed in an immunocompromised individual), or other evidence exists to indicate HCV infection. Performed at: [address] [id number] Patient Services Rep: Brock Can PhD, Phone: [phone] 01/03/2025 3:36 PM EDT 01/03/2025 3:46 PM EDT Narrative [facility] - 01/05/2025 8:11 AM EDT Amandeep Zoey DO LAB BLOOD ORDERABLES Final Resul t Performing Organization Address City/[facility]/ZIP Co de Phone Number [facility] * MLR HEMOGLOBIN A1C (01/03/2025 3:36 PM EDT) [facility] GLYCOHEMOGLOBIN A1C 5.0 4.5 - 6.2 % [facility] Comment: ADA RECOMMENDED LIMIT 4.0 - 6.0 ADA THERAPEUTIC TARGET < 7.0 ACTION SUGGESTED > 7.0 ESTIMATED AVERAGE GLUCOSE 97 mg/dL TB 01/03/2025 3:36 PM EDT 01/03/2025 3:46 PM EDT Narrative [facility]IN[facility] - 01/03/2025 4:25 PM EDT Amandeep Zoey DO [facility] Final Result Performing Organization Address [facility] Co de Phone Number [facility] * ALL TYPE AND SCREEN (01/03/2025 3:36 PM EDT) [facility] BLOOD TYPE A Positive [facility] ANTIBODY SCREEN NEGATIVE [facility] 01/03/2025 3:36 PM EDT 01/03/2025 3:46 PM EDT Narrative CLINISYNC - 01/03/2025 5:38 PM EDT [facility] , Amandeep Zoey DO CLIN[facility] Final Result Performing Organization Address City/[facility] Co de Phone Number [facility] * ALL RUBELLA IGG AB (01/03/2025 3:36 PM EDT) [facility] RUBELLA ANTIBODIES, IGG 2.02 Immune >0.99 index [facility]H Comment: Non-immune <0.90 Equivocal 0.90 - 0.99 Immune >0.99 Performed at: [facility] [address] [place], [place] [id number] Patient Services Rep: Brock Can PhD, Phone: [phone] 01/03/2025 3:36 PM EDT 01/03/2025 3:46 PM EDT Narrative [facility] - 01/05/2025 8:11 AM EDT us Amandeep Zoey DO [facility] Final Result [facility] TB * (ABNORMAL) ALL CBC WITH AUTO DIFF (01/03/2025 3:36 PM EDT) [facility] WBC 12.6(H) 4.0 - 11.0 10 3/uL TBH TBH RBC 4.49 4.20 - 5.40 10 6/uL TBH TBH HGB 12.1 12.0 - 16.0 g/dL TBH TBH HCT 36.4 36.0 - 48.0 % TBH TBH MCV 81.1 81.0 - 99.0 fL TBH TBH MCH 26.9 26.7 - 34.0 pg TBH TBH MCHC 33.2 29.9 - 35.2 g/dL TBH TBH RDW 14.6 11.0 - 15.0 % TBH TBH PLT 231 150 - 450 10 3/uL TBH TBH MPV 10.7 9.5 - 13.5 fL TBH NEUTROPHILS PERCENT AUTO 69.5 43.0 - 75.0 % TBH LYMPHOCYTES PERCENT AUTO 20.8 20.5 - 60.0 % TBH MONOCYTES PERCENT AUTO 6.7 1.7 - 12.0 % TBH TBH EO % 1.8 0.9 - 7.0 % TBH BASOPHILS PERCENT AUTO 0.6 0.2 - 2.0 % [facility] IMMATURE GRANULOCYTES PCT AUTO 0.6(H) 0.0 - 0.5 % TBH NEUTROPHILS ABSOLUTE AUTO 8.8(H) 1.4 - 6.5 10 3/uL TBH LYMPHOCYTES ABSOLUTE AUTO 2.6 1.2 - 3.8 10 3/uL TBH MONOCYTES ABSOLUTE AUTO 0.9(H) 0.3 - 0.8 10 3/uL TBH TBH EO # 0.2 0.0 - 0.7 10 3/uL TBH BASOPHILS ABSOLUTE AUTO 0.1 0.0 - 0.1 10 3/uL [facility] IMMATURE GRANULOCYTES ABS AUTO 0.07(H) 0.00 - 0.03 10 3/uL [facility] 01/03/2025 3:36 PM EDT 01/03/2025 3:56 PM EDT Narrative CLIN[facility]YNC - 01/03/2025 3:57 PM EDT us Amandeep Zoey DO [facility] TB DRUG SCREEN RAPID (URINE) (01/03/2025 3:06 PM EDT) CANNABINOID SCREEN URINE NEGATIVE NEGATIVE TBH PHENCYCLIDINE SCREEN URINE NEGATIVE NEGATIVE TBH COCAINE SCREEN URINE NEGATIVE NEGATIVE TBH METHAMPHETAMINES SCREEN URINE NEGATIVE NEGATIVE TBH OPIATE SCREEN URINE NEGATIVE NEGATIVE TBH AMPHETAMINE SCREEN URINE NEGATIVE NEGATIVE TBH BENZODIAZEPINES SCREEN URINE NEGATIVE NEGATIVE TBH TRICYCLIC ANTIDEPRESSANT URINE NEGATIVE NEGATIVE TBH METHADONE SCREEN URINE NEGATIVE NEGATIVE TBH BARBITURATES SCREEN URINE NEGATIVE NEGATIVE TBH OXYCODONE SCREEN URINE NEGATIVE NEGATIVE TBH BUPRENORPHINE SCREEN URINE NEGATIVE NEGATIVE TBH Comment: DRUG CLASS TEST SYSTEM CUT-OFF CONCENTRATIONS ARE FOLLOWS: AMP (Amphetamine): 500 ng/mL BAR (Barbiturates): 200 ng/mL BZO (Benzodiazepines): 150 ng/mL BUP (Buprenorphine): 10 ng/mL DEBBY (Cocaine): 150 ng/mL mAMP (Methamphetamine): 500 ng/mL MTD (Methadone): 200 ng/mL OPI (Opiates): 100 ng/mL OXY (Oxycodone): 100 ng/mL PCP (Phencyclidine): 25 ng/mL THC (Cannabinoids): 50 ng/mL TCA (Trycyclic Antidepressants): 300 ng/mL 01/03/2025 3:06 PM EDT 01/03/2025 3:47 PM EDT Narrative [facility] - 01/03/2025 4:01 PM EDT us Amandeep Zoey DO [facility] Final Result [facility] * US OB transvaginal (11/10/2024 3:39 PM EDT) Only the most recent of2 resultswithin the time period is included. Anatomical Region Laterality Modality Body Ultrasound 11/11/2024 10:2 6 AM EDT Narrative 11/11/2024 10:26 AM EDT EXAM: US OB TRANSVAGINAL HISTORY: Follow up subchorionic hemorrhage. COMPARISON: Ob ultrasound 11/03/2024. TECHNIQUE: Two-dimensional transvaginal grayscale ultrasound imaging of the pelvis was performed. Color Doppler evaluation of the ovaries was also performed. FINDINGS: The uterus demonstrates a normal homogeneous echotexture. The cervix measures 3.6 cm in length and the cervical os is closed. The right ovary measures 3.4 x 2.4 x 3.0 cm and demonstrates a normal echotexture. There is normal color Doppler flow. There is a presumed corpus luteal cyst visualized. The left ovary is not visualized. No fluid is present within the cul-de-sac. There is a single, live intrauterine gestation identified with a heart rate of 176 beats per minute and a crown-rump length measurement of 1.9 cm, correlating to a gestational age of 8 weeks 3 days (+/- 5 days). There is a 2.0 cm subchorionic hemorrhage visualized. A yolk sac is visualized. IMPRESSION: 1. Single, live intrauterine gestation 8 weeks, 3 days by LMP. Today's ultrasound measurements correlate with a gestational age of 8 weeks 3 days (+/- 5 days). BALBINA by today's ultrasound is 06/19/2025. 2. Subchorionic hemorrhage. This has slightly improved when compared to the prior study. 3. Normal color Doppler evaluation of the right ovary, the left ovary was not visualized. Interpreted by: Electronically signed by LEE MADRID II, MD, PHD at 11-Nov-2024 10:24:39 AM [facility] Procedure Note Lee Madrid MD - 11/11/2024 EXAM: US OB TRANSVAGINAL HISTORY: Follow up subchorionic hemorrhage. COMPARISON: Ob ultrasound 11/03/2024. TECHNIQUE: Two-dimensional transvaginal grayscale ultrasound imaging ofthe pelvis was performed. Color Doppler evaluation of the ovaries was alsoperformed. FINDINGS: The uterus demonstrates a normal homogeneous echotexture. The cervixmeasures 3.6 cm in length and the cervical os is closed. The right ovary measures 3.4 x 2.4 x 3.0 cm and demonstrates a normalechotexture. There is normal color Doppler flow. There is a presumedcorpus luteal cyst visualized. The left ovary is not visualized. No fluid is present within the cul-de-sac. There is a single, live intrauterine gestation identified with a fetalheart rate of 176 beats per minute and a crown-rump length measurement of1.9 cm, correlating to a gestational age of 8 weeks 3 days (+/- 5 days).There is a 2.0 cm subchorionic hemorrhage visualized. A yolk sac isvisualized. IMPRESSION: 1. Single, live intrauterine gestation 8 weeks, 3 days by LMP. Today'sultrasound measurements correlate with a gestational age of 8 weeks 3 days(+/- 5 days). BALBINA by today's ultrasound is 06/19/2025. 2. Subchorionic hemorrhage. This has slightly improved when compared tothe prior study. 3. Normal color Doppler evaluation of the right ovary, the left ovary wasnot visualized. Interpreted by: Electronically signed by LEE MADRID II, MD, PHD 10:24:39 AM [facility] us Amandeep Greer DO IMG OB US PROCEDURES Final Resul t * (ABNORMAL) POCT , urine manually resulted (11/03/2024 2:23 PM EDT) Preg Test, Ur Positive Negative Urine 11/03/2024 2:23 PM EDT us Amandeep Greer DO POINT OF CARE TEST ENTER/EDIT OR DERABLES Final Result from Last 3 Months Insurance [employer]
--- OUTSIDE RECORDS SUMMARY | 2025-01-05 19:39 | XMS_ITS | CCD ---
Author Organization [facility] Care Team Providers Care Fast Food Restaurant Manager Name Role Phone ZOEY, ALESSANDRO Consulting Unavailable REQUEST, NONE LISTED Primary Care Unavaila ble ZOEY, ALESSANDRO Attending Unavailable ZOEY, ALESSANDRO Admitting Unavailable ZOEY, ALESSANDRO Consulting Unavailable REQUEST, NONE LISTED Primary Care Unavaila ble ZOEY, ALESSANDRO Attending Unavailable ZOEY, ALESSANDRO Admitting Unavailable ZieberMalicken Consulting Unavailable KARASIK ., DR SANTANA Consulting Unavailabl e REQUEST, NONE LISTED Primary Care Unavaila ble ZOEY, ALESSANDRO Attending Unavailable ZOEY, ALESSANDRO Admitting Unavailable ZOEY, ALESSANDRO Consulting Unavailable PAMELA SCHILLING Consulting Unavailable ZOEY, ALESSANDRO Procedure Practitioner Unavailab CATE Torres Consulting Unavailable REQUEST, NONE LISTED Primary Care Unavaila ble ZOEY, ALESSANDRO Attending Unavailable ZOEY, ALESSANDRO Admitting Unavailable REQUEST, NONE LISTED Primary Care Unavaila ble ZOEY, ALESSANDRO Attending Unavailable ZOEY, ALESSANDRO Admitting Unavailable ZOEY, ALESSANDRO Consulting Unavailable REQUEST, NONE LISTED Primary Care Unavaila ble ZOEY, ALESSANDRO Attending Unavailable ZOEY, ALESSANDRO Admitting Unavailable ZOEY, ALESSANDRO Consulting Unavailable REQUEST, NONE LISTED Primary Care Unavaila ble ZOEY, ALESSANDRO Attending Unavailable ZOEY, ALESSANDRO Admitting Unavailable ZOEY, ALESSANDRO Consulting Unavailable REQUEST, NONE LISTED Primary Care Unavaila ble ZOEY, ALESSANDRO Attending Unavailable ZOEY, ALESSANDRO Admitting Unavailable ZiNestor gonsales Consulting Unavailable ZOEY, ALESSANDRO Consulting Unavailable REQUEST, NONE LISTED Primary Care Unavaila ble ZOEY, ALESSANDRO Attending Unavailable ZOEY, ALESSANDRO Admitting Unavailable WEST, DR RADHA Zambrano Consulting Unavailable REQUEST, NONE LISTED Primary Care Unavaila ble ZOEY, ALESSANDRO Attending Unavailable ZOEY, ALESSANDRO Admitting Unavailable ZOEY, ALESSANDRO Consulting Unavailable Unavailable Primary Care Provider Unavailabl e ALESSANDRO GREER Attending Unavailable ALESSANDRO GREER Attending Unavailable Medications Current Medications Medication Drug Class(es) Dates Sig (Normalized) Sig (Original) magnesium oxide 400 mg oral tablet (3 sources) Start: 12-05-2024 End: 01-04-2025 take 1 tablet by mouth once daily magnesium oxide (Mag-Ox) 400 MG tablet Indications: Nonintractable headache, unspecified chronicity pattern, unspecified headache type Take 1 tablet (400 mg) by mouth Daily 30 tablet 6 12/05/2024 01/04/2025 Active ondansetron 4 mg disintegrating oral tablet (4 sources) Serotonin-3 Receptor Antagonist Start: 12-05-2024 End: 01-04-2025 take 1 tablet by mouth every eight hours as needed for nausea and vomiting and nausea and nausea ondansetron ODT (Zofran-ODT) 4 MG disintegrating tablet Indications: Nausea Take 1 tablet (4 mg) by mouth every 8 (eight) hours if needed for nausea or vomiting 30 tablet 2 12/05/2024 01/04/2025 Active Start: 11-03-2024 End: 12-03-2024 take 1 tablet by mouth every six hours for nausea ondansetron ODT (Zofran-ODT) 4 MG disintegrating tablet Indications: , unspecified gestational age Take 1 tablet (4 mg) by mouth every 6 (six) hours if needed for nausea or vomiting 30 tablet 2 11/03/2024 12/03/2024 Active MV-Min-Fe Fum-FA-DH A ( 1 PO) (8 sources) MV-Min- Fe Fum-FA-DHA ( 1 PO) Take by mouth Active Progesterone 200 MG supposit ory (1 source) Start: 10-06-2024 End: 11-05-2024 Progesterone 200 MG supposit ory Indications: History of miscarriage Insert 200 mg into the vagina at bedtime Insert suppository vaginally every night at bedtime until 12 weeks gestation 30 suppository 2 10/06/2024 11/05/2024 Active Problems Active Problems Problem Classification Problem Date Documented Date Episodic/Chronic distress and abnormal forces of labor (1 source) Primary inadequate contractions; Translations: [PRIMARY INADEQUATE CONTRACTIONS] Onset: 09-24-2022 Episodic Headache; including migraine (2 sources) Headache; Translations: [Nonintractable headache, unspecified chronicity pattern, unspecified headache type] 12-05-2024 Episodic Hemorrhage during ; abruptio placenta; placenta previa (2 sources) Subchorionic hematoma; Translations: [Other hemorrhage in early ] 01-05-2025 Episodic Immunizations and screening for infectious disease (7 sources) Contact with and (suspected) exposure to infections with a predominantly sexual mode of transmission; Translations: [Exposure to sexually transmissible disorder] Onset: 07-15-2022 Episodic Malposition; malpresentation (1 source) Maternal care for high head at term, not applicable or unspecified; Translations: [MATERNAL CARE HIGH HEAD TERM NA/UNS] Onset: 09-24-2022 Episodic Menstrual disorders (5 sources) Irregular menstruation, unspecified; Translations: [Missed period] Onset: 01-30-2022 Chronic Nausea and vomiting (2 sources) Nausea; Translations: [Nausea] 12-05-2024 Episodic Other aftercare (2 sources) H/O: miscarriage; Translations: [Encounter for other specified aftercare] 06-16-2024 Episodic Other complications of ; puerperium affecting management [...] NONINFLAMMATORY D/O VAGINA] Onset: 08-18-2022 Episodic Other female genital disorders (2 sources) Vaginal discharge; Translations: [Other specified noninflammatory disorders of vagina] 01-05-2025 Episodic Other and delivery including normal (20 sources) Encounter for routine follow-up; Translations: [Encounter for supervision of normal , unspecified, third trimester] Onset: 02-17-2022 Episodic Other screening for suspected conditions (not mental disorders or infectious disease) (8 sources) Encounter for screening for diabetes mellitus; Translations: [Encounter for screening, unspecified] Onset: 06-05-2022 Episodic Residual codes; unclassified (1 source) 39 weeks gestation of ; Translations: [39 WEEKS GESTATION OF ] Onset: 09-24-2022 Episodic Residual codes; unclassified (1 source) 37 weeks gestation of ; Translations: [37 WEEKS GESTATION OF ] Onset: 08-23-2022 Episodic Residual codes; unclassified (2 sources) Gestation period, 12 weeks; Translations: [12 weeks gestation of ] 12-05-2024 Episodic Residual codes; unclassified (2 sources) Gestation period, 16 weeks; Translations: [16 weeks gestation of ] 01-05-2025 Episodic Spontaneous (2 sources) Miscarriage; Translations: [Complete or unspecified spontaneous without complication] 06-16-2024 Episodic Past or Other Problems Problem Classification Problem Date Documented Da te Episodic/Chronic Residual codes; unclassified (1 source) 9 weeks gestation of ; Translations: [9 WEEKS GESTATION OF ] Onset: 02-17-2022 Episodic Results Test Name Value Interpretation Reference Range Facility Urinalysis macro (dipstick) panel (U)on 01-05-2025 Bilirubin, UA Negative Negative - 4(70) +++ mg/dL [facility] Blood, UA Negative Negative - 50 Sukumar/mcL [facility] Clarity, UA Clear [facility] Color, UA Yellow [facility] Glucose, UA Negative Negative - 2000(110) ++++ mg/dL [facility] Interpretation and review of laboratory results Normal [facility] Ketones, UA Negative Negative - 160(16) ++++ mg/dL [facility] Leukocytes, UA Negative Negative - 500+++ Dev/mcL [facility] Nitrite, UA Negative Negative - Positive [facility] pH, UA 6 5 - 9 [facility] Protein, UA Negative Negative - 2000(20) ++++ mg/dL [facility] Spec Grav, UA 1.02 1 - 1.03 [facility] Urobilinogen, UA 1.0 0.2 - 12 mg/dL [facility] BOX TESTon 01-03-2025 BOX TEST SENT OUT [place] [facility] [address] [place] [facility] B[address] 01/03/25 [facility] Urinalysis macro (dipstick) panel (U)on 12-05-2024 Bilirubin, UA Negative Negative - 4(70) +++ mg/dL [facility] Blood, UA Negative Negative - 50 Sukumar/mcL [facility] Clarity, UA Clear [facility] Color, UA Yellow [facility] Glucose, UA Negative Negative - 1999(110) ++++ mg/dL [facility] Interpretation and review of laboratory results Normal [facility] Ketones, UA Negative Negative - 160(16) ++++ mg/dL [facility] Leukocytes, UA Negative Negative - 500+++ Dev/mcL [facility] Nitrite, UA Negative Negative - Positive [facility] pH, UA 6 5 - 9 [facility] Protein, UA Negative Negative - 1999(20) ++++ mg/dL [facility] Spec Grav, UA 1.02 1 - 1.03 [facility] Urobilinogen, UA 0.2 0.2 - 12 mg/dL [facility] US OB TRANSVAGINALon 025 US OB TRANSVAGINAL EXAM: US OB TRANSVAGINAL HISTORY: Follow up [...] II, MD, PHD at 11-Nov-2024 10:24:39 AM [email or web address] Normal Not Available Comment on above: Order Comment: US OB VIABILITY PLEASE PERFORM TRANSVAGINAL ULTRASOUND IF INDICATED Patient's last menstrual period was 09/06/2024. HCG ( test) Ql (U)o n 11-03-2024 Interpretation and review of laboratory results Abnormal [facility] Preg Test, Ur Positive Negative [facility] US OB TRANSVAGINALon 025 US OB TRANSVAGINAL EXAM: US OB TRANSVAGINAL HISTORY: Dating. COMPARISON: None available. TECHNIQUE: Two-dimensional transvaginal grayscale ultrasound imaging of the pelvis was performed. Color Doppler evaluation of the ovaries was also performed. FINDINGS: The uterus demonstrates a normal homogeneous echotexture. The cervix measures 3.7 cm in length and the cervical os is closed. The right ovary measures 3.2 x 2.6 x 3.1 cm and demonstrates a normal echotexture. There is normal color Doppler flow. There is a presumed corpus luteal cyst visualized. The left ovary measures 3.1 x 1.3 x 2.4 cm and demonstrates a normal echotexture. There is normal color Doppler flow. No fluid is present within the cul-de-sac. There is a single, live intrauterine gestation identified with a heart rate of 141 beats per minute and a crown-rump length measurement of 1.2 cm, correlating to a gestational age of 7 weeks 3 days (+/- 5 days). There is a 2.5 cm subchorionic hemorrhage visualized. A yolk sac is visualized. IMPRESSION: 1. Single, live intrauterine gestation 8 weeks, 2 days by LMP. Today's ultrasound measurements correlate with a gestational age of 7 weeks 3 days (+/- 5 days). BALBINA by today's ultrasound is 06/19/2025. 2. Subchorionic hemorrhage. A short-term follow-up ultrasound is recommended to monitor for resolution. 3. Normal color Doppler evaluation of the bilateral ovaries. Interpreted by: Electronically signed by LEE MADRID II, MD, PHD at 04-Nov-2024 08:26:23 AM [facility] Normal Not Available Comment on above: Order Comment: US OB TRANSVAGINAL No LMP recorded. Urinalysis macro (dipstick) panel (U)on 11-03-2024 Bilirubin, UA Negative Negative - 4(70) +++ mg/dL [facility] Blood, UA Negative Negative - 50 Sukumar/mcL [facility] Clarity, UA Clear [facility] Color, UA Yellow [facility] Glucose, UA Negative Negative - 1999(110) ++++ mg/dL [facility] Interpretation and review of laboratory results Abnormal [facility] Ketones, UA Negative Negative - 160(16) ++++ mg/dL [facility] Leukocytes, UA Positive Negative - 500+++ Dev/mcL [facility] Comment on above: small Nitrite, UA Negative Negative - Positive [facility] pH, UA 6.5 5 - 9 [facility] Protein, UA Negative Negative - 2000(20) ++++ mg/dL [facility] Spec Grav, UA 1.03 1 - 1.03 [facility] Urobilinogen, UA 0.2 0.2 - 12 mg/dL [facility] PREG QUANT HCGon 025 HCG QUANTITATIVE 4 mIU/mL [facility] Comment on above: 5-50 0.2-1 WEEK 50-500 1-2 WEEKS 100-5,000 2-3 WEEKS 500-10,000 3-4 WEEKS 1,000-50,000 4-5 WEEKS 10,000-100,000 5-6 WEEKS 15,000-200,000 6-8 WEEKS 10,000-100,000 2-3 MONTHS [facility] CBC AUTO DIFFon 08-29-2022 BASO # 0.1 103/ul Normal 0.0-0.1 [facility] Comment on above: Performed By: #### C BC #### [facility] [address] [place], [place] [address] Dr. Lis Oakley Basophils/100 WBC (Bld) 0.3 % Normal 0.2-2.0 [facility] Comment on above: Performed By: #### C BC #### [facility] [address] [place], [place] [address] Dr. Lis Oakley EO # 0.0 103/ul Normal 0.0-0.7 [facility] Comment on above: Performed By: #### C BC #### [facility] [address] [place] [address] [address] Lis Oakley Eosinophils/100 WBC (Bld) 0.0 % Critically low 0.9-7.0 [facility] Comment on above: Performed By: #### C BC #### [facility] [address] [place] [address] Dr. Lis Oakley Erythrocyte distribution width (RBC) [Ratio] 15.0 % Normal 11.0-15.0 [facility] Comment on above: Performed By: #### C BC #### [facility] [address] [place] [address] Dr. Lis Oakley Hematocrit (Bld) [Volume fraction] 26.4 % Critically low 36.0-48.0 [facility] Comment on above: Performed By: #### C BC #### [facility] [address] [place] [address] Dr. Lis Oakley Hemoglobin (Bld) [Mass/Vol] 8.1 g/dL Critically low 12.0-16.0 [facility] Comment on above: Performed By: #### C BC #### [facility] [address] [place] [address] Dr. Lis Oakley IG # 0.10 10e3/ul Critically high 0.00-0.03 [facility] Comment on above: Performed By: #### C BC #### [facility] [address] [place] [address] Dr. Lis Oakley IG % 0.6 % Critically high 0.0-0.5 [facility] Comment on above: Performed By: #### C BC #### [facility] [address] [place] [address] Dr. Lis Oakley LYMPH # 1.0 103/ul Critically low 1.2-3.8 [facility] Comment on above: Performed By: #### C BC #### [facility] [address] [place] [address] Dr. Lis Oakley Lymphocytes/100 WBC (Bld) 5.8 % Critically low 20.5-60.0 [facility] Comment on above: Performed By: #### C BC #### [facility] [address] [place] [address] Dr. Lis Oakley MANUAL DIFF REQ NO Normal [facility] Comment on above: Performed By: #### C BC #### [facility] [address] [place] [address] Dr. Lis Oakley MCH (RBC) [Entitic mass] 23.8 pg Critically low 26.7-34.0 [facility] Comment on above: Performed By: #### C BC #### [facility] [address] [place] [address] Dr. Lis Oakley MCHC (RBC) [Mass/Vol] 30.7 g/dL Normal 29.9-35.2 [facility] Comment on above: Performed By: #### C BC #### [facility] [address] [place] [address] Dr. Lis Oakley MCV (RBC) [Entitic vol] 77.4 fL Critically low 81.0-99.0 [facility] Comment on above: Performed By: #### C BC #### [facility] [address] [place] [address] Dr. Lis Oakley MONO # 0.7 103/ul Normal 0.3-0.8 [facility] Comment on above: Performed By: #### C BC #### [facility] [address] [place] [address] Dr. Lis Oakley Monocytes/100 WBC (Bld) 3.9 % Normal 1.7-12.0 [facility] Comment on above: Performed By: #### C BC #### [facility] [address] [place] [address] Dr. Lis Oalkey NEUT # 16.0 103/ul Critically high 1.4-6.5 [facility] Comment on above: Performed By: #### C BC #### [facility] [address] [place] [address] Dr. Lis Oakley Neutrophils/100 WBC (Bld) 89.4 % Critically high 43.0-75.0 [facility] Comment on above: Performed By: #### C BC #### [facility] [address] [place] [address] [address] Lis Oakley Platelet mean volume (Bld) [Entitic vol] 10.7 fL Normal 9.5-13.5 [facility] Comment on above: Performed By: #### C BC #### [facility] [address] [place] [address] [address] Lis Oakley PLT 271 103/ul Normal 150-450 [facility] Comment on above: Performed By: #### C BC #### [facility] [address] [place] [address] [address] Lis Oakley RBC 3.41 106/ul Critically low 4.20-5.40 [facility] Comment on above: Performed By: #### C BC #### [facility] [address] [place] [address] Dr. Lis Oakley WBC 17.9 103/ul Critically high 4.0-11.0 [facility] Comment on above: Performed By: #### C BC #### [facility] [address] [place] [address] Dr. Lis Oakley CBC AUTO DIFFon 08-27-2022 BASO # 0.0 103/ul Normal 0.0-0.1 [facility] Comment on above: Performed By: #### R UBIGG #### [facility] [address] [place] [address] [address] Lis Oakley Basophils/100 WBC (Bld) 0.4 % Normal 0.2-2.0 [facility] Comment on above: Performed By: #### R UBIGG #### [facility] [address] [place] [address] [address] Lis Oakley EO # 0.1 103/ul Normal 0.0-0.7 [facility] Comment on above: Performed By: #### R UBIGG #### [facility] [address] [place] [address] Dr. Lis Oakley Eosinophils/100 WBC (Bld) 0.6 % Critically low 0.9-7.0 [facility] Comment on above: Performed By: #### R UBIGG #### [facility] [address] [place] [address] [address] Lis Oakley Erythrocyte distribution width (RBC) [Ratio] 14.6 % Normal 11.0-15.0 [facility] Comment on above: Performed By: #### R UBIGG #### [facility] [address] [place] [address] Dr. Lis Oakley Hematocrit (Bld) [Volume fraction] 30.4 % Critically low 36.0-48.0 [facility] Comment on above: Performed By: #### R UBIGG #### [facility] [address] [place] [address] Dr. Lis Oakley Hemoglobin (Bld) [Mass/Vol] 9.7 g/dL Critically low 12.0-16.0 [facility] Comment on above: Performed By: #### R UBIGG #### [facility] [address] [place] [address] Dr. Lis Oakley IG # 0.06 10e3/ul Critically high 0.00-0.03 [facility] Comment on above: Performed By: #### R UBIGG #### [facility] [address] [place] [address] Dr. Lis Oakley IG % 0.6 % Critically high 0.0-0.5 [facility] Comment on above: Performed By: #### R UBIGG #### [facility] [address] [place] [address] Dr. Lis Oakley LYMPH # 1.7 103/ul Normal 1.2-3.8 [facility] Comment on above: Performed By: #### R UBIGG #### [facility] [address] [place] [address] Dr. Lis Oakley Lymphocytes/100 WBC (Bld) 16.3 % Critically low 20.5-60.0 [facility] Comment on above: Performed By: #### R UBIGG #### [facility] [address] [place] [address] Dr. Lis Oakley MANUAL DIFF REQ NO Normal [facility] Comment on above: Performed By: #### R UBIGG #### [facility] [address] [place] [address] Dr. Lis Oakley MCH (RBC) [Entitic mass] 24.3 pg Critically low 26.7-34.0 [facility] Comment on above: Performed By: #### R UBIGG #### [facility] [address] [place] [address] Dr. Lis Oakley MCHC (RBC) [Mass/Vol] 31.9 g/dL Normal 29.9-35.2 [facility] Comment on above: Performed By: #### R UBIGG #### [facility] [address] [place] [address] Dr. Lis Oakley MCV (RBC) [Entitic vol] 76.0 fL Critically low 81.0-99.0 [facility] Comment on above: Performed By: #### R UBIGG #### [facility] [address] [place] [address] Dr. Lis Oakley MONO # 0.5 103/ul Normal 0.3-0.8 [facility] Comment on above: Performed By: #### R UBIGG #### [facility] [address] [place] [address] Dr. Lis Oakley Monocytes/100 WBC (Bld) 4.5 % Normal 1.7-12.0 [facility] Comment on above: Performed By: #### R UBIGG #### [facility] [address] [place] [address] Dr. Lis Oakley NEUT # 7.8 103/ul Critically high 1.4-6.5 [facility] Comment on above: Performed By: #### R UBIGG #### [facility] [address] [place] [address] Dr. Lis Oakley Neutrophils/100 WBC (Bld) 77.6 % Critically high 43.0-75.0 [facility] Comment on above: Performed By: #### R UBIGG #### [facility] [address] [place] [address] Dr. Lis Oakley Platelet mean volume (Bld) [Entitic vol] 10.2 fL Normal 9.5-13.5 [facility] Comment on above: Performed By: #### R UBIGG #### [facility] [address] [place] [address] Dr. Lis Oakley PLT 288 103/ul Normal 150-450 [facility] Comment on above: Performed By: #### R UBIGG #### [facility] [address] [place] [address] [address] Lis Oakley RBC 4.00 106/ul Critically low 4.20-5.40 [facility] Comment on above: Performed By: #### R UBIGG #### [facility] [address] [place] [address] Dr. Lis Oakley WBC 10.1 103/ul Normal 4.0-11.0 [facility] Comment on above: Performed By: #### R UBIGG #### [facility] [address] [place] [address] Dr. Lis Oakley DRUG SCREEN RAPID (URINE)on 08-27-2022 AMP Negative Normal NEGATIVE [facility] Comment on above: Performed By: #### D RUGRPD #### [facility] [address] [place] [address] Dr. Lis Oakley BAR Negative Normal NEGATIVE [facility] Comment on above: Performed By: #### D RUGRPD #### [facility] [address] [place] [address] Dr. Lis Oakley BUP Negative Normal NEGATIVE [facility] Comment on above: Performed By: #### D RUGRPD #### [facility] [address] [place] [address] Dr. Lis Oakley BZO Negative Normal NEGATIVE [facility] Comment on above: Performed By: #### D RUGRPD #### [facility] [address] [place] [address] Dr. Lis Oakley DEBBY Negative Normal NEGATIVE [facility] Comment on above: Performed By: #### D RUGRPD #### [facility] [address] [place] [address] [address] Lis Oakley CUT-OFFS SEE BELOW Normal [facility] Comment on above: Result Comment: AMP (Amphetamine): 500ng/mL, BAR (Barbituates): 200 ng/mL, BZO (Benzodiazepines): 150 ng/mL, BUP (Buprenorphine): 10 ng/mL, DEBBY (Cocaine): 150 ng/mL, mAMP (Methamphetamine): 500 ng/mL, MTD (Methadone): 200 ng/mL, OPI (Opiates): 100 ng/mL, OXY (Oxycodone): 100 ng/mL, PCP (Phencyclidine): 25 ng/mL, PPX (Propoxyphene): 300 ng/mL, THC (Cannabinoids): 50 ng/mL, TCA (Trycyclic Antidepressants): 300 ng/mL Performed By: #### D RUGRPD #### [facility] [address] [place] [address] Dr. Lis Oakley DRUG CUT HEADER DRUG CLASS TEST SYST EM CUT-OFF CONCENTRATIONS ARE FOLLOWS: Normal [facility] Comment on above: Performed By: #### D RUGRPD #### [facility] [address] [place] [address] Dr. Lis Oakley mAMP Negative Normal NEGATIVE [facility] Comment on above: Performed By: #### D RUGRPD #### [facility] [address] [place] [address] Dr. Lsi Oakley MTD Negative Normal NEGATIVE [facility] [place] Comment on above: Performed By: #### D RUGRPD #### [facility] [address] [place] [address] Dr. Lis Oakley OPI Negative Normal NEGATIVE [facility] [place] Comment on above: Performed By: #### D RUGRPD #### [facility] [place] [facility] [address] [address] [address] Lis Oakley OXY Negative Normal NEGATIVE [facility] Comment on above: Performed By: #### D RUGRPD #### [facility] [place] [facility] [address] [place] [address] Dr. Lis Oakley PCP Negative Normal NEGATIVE [facility] Comment on above: Performed By: #### D RUGRPD #### [facility] [place] [facility] [address] [address] [address] Lis Oakley PPX Negative Normal NEGATIVE [facility] [place] Comment on above: Performed By: #### D RUGRPD #### [facility] [place] [facility] [address] [address] [address] Lis Oakley TCA Negative Normal NEGATIVE [facility] Comment on above: Performed By: #### D RUGRPD #### [facility] [place] [facility] [address] [address] [address] Lis Oakley THC Negative Normal NEGATIVE [facility] Comment on above: Performed By: #### D RUGRPD #### [facility] [place] [facility] [address] [place] [address] Dr. Lis Oakley TYPE AND SCREENon 08-27-2022 TYPE AND SCREEN Negative Normal [facility] Comment on above: Performed By: #### C BC #### [facility] [place] [facility] [address] [place] [address] Dr. Lis Oakley US PREG GROWTHon 08-19-2022 [...] Age by US: 39 weeks 6 days BALIBNA by US: 08/20/2022 IMPRESSION: 1. Single live intrauterine with growth detailed above. 2. BPD, HC, and AC are all 96% or above. Electronically authenticated by: NESTOR NELSON Date: 2022-08-19 16:24 Normal [facility] [place] GROUP B STREP CULTUREon 07-30 S. agalactiae [...] F Tetracycline >=16 R F Normal [facility] [place] Comment on above: Performed By: #### G BSCX #### [facility] [place] [facility] [address] [place] [address] Dr. Lis Oakley CHLAMYDIA/GONOCOCCUS YOMI ( AB/URINE/PAPon 08-14-2022 Chlamydia trachomatis, YOMI Negative Normal Negative [facility] Comment on above: Performed By: #### C T/NGNA #### [facility] [place] [facility] [address] [place] [address] Dr. Lis Oakley Neisseria gonorrhoeae, YOMI Negative Normal Negative [facility] Comment on above: Performed By: #### C T/NGNA #### [facility] [place] [facility] [address] [place] [address] Dr. Lis Oakley VAGINITIS/VAGINOSIS DNA PROB Talon 08-14-2022 Marcelle species Negative Normal Negative [facility] Comment on above: Performed By: #### R UBIGG #### [facility] [place] [facility] [address] [place] [address] Dr. Lis Oakley Gardnerella vaginalis Negative Normal Negative [facility] Comment on above: Performed By: #### R UBIGG #### [facility] [place] [facility] [address] [place] [address] Dr. Lis Oakley Trichomonas vaginalis Negative Normal Negative [facility] Comment on above: Performed By: #### R UBIGG #### [facility] [place] [facility] [address] [place] [address] Dr. Lis Oakley HEP B SURFACE ANTIGEN SCREEN on 07-16-2022 HBsAg Screen Negative Normal Negative [facility] Comment on above: Performed By: #### C BC #### [facility] [place] [facility] [address] [address] [address] Lis Oakley HEPATITIS C VIRUS AB W/ REFL EX QUANTon 07-16-2022 HCV AB Non-Reactive Normal Non Reactive [facility] Comment on above: Performed By: #### C BC #### [facility] [place] [facility] [address] [address] [address] Lis Oakley Interpretation: Comment Normal [facility] Comment on above: Result Comment: Not infected with HCV unless early or acute infection is suspected (which may be delayed in an immunocompromised individual), or other evidence exists to indicate HCV infection. Performed By: #### C BC #### [facility] [place] [facility] [address] [place] [address] Dr. Lis Oakley HIV 1 AND 2 WITH REFLEXon HIV Screen 4th Generation wRfx Non-Reactive Normal Non Reactive [facility] Comment on above: Result Comment: HIV Negative HIV-1/HIV-2 antibodies and HIV-1 p24 antigen were NOT detected. There is no laboratory evidence of HIV infection. Performed By: #### R UBIGG #### [facility] [place] [facility] [address] [place] [address] Dr. Lis Oakley RPR QUANTon 07-16-2022 Rapid Plasma Reagin, Quant Non-Reactive Normal NonRea<1:1 [facility] Comment on above: Result Comment: Plea se Note: This test does not meet current guidelines for screening and diagnosis of syphilis. This test is intended for following treatment response in patients being treated for syphilis infection. To screen for syphilis infection, a reflex cascade that includes both RPR and a treponema-specific assay should be utilized, such as Treponema pallidum (Syphilis) Screening Levy (717098) or Rapid Plasma Reagin (RPR) Test With Reflex to Quantitative RPR and Confirmatory Treponema pallidum Antibodies (780645). Performed By: #### R PRQ #### [facility] [place] [facility] [address] [place] [address] Dr. Lis Oakley RUBELLA AB IGGon 07-16-2022 Rubella Antibodies, IgG 1.94 index Normal Immune >0.99 [facility] [place] Comment on above: Result Comment: Non- immune <0.90 Equivocal 0.90 - 0.99 Immune >0.99 Performed By: #### R UBIGG #### [facility] [place] [facility] [address] [place] [address] Dr. Lis Oaklye CBC AUTO DIFFon 07-15-2022 BASO # 0.1 103/ul Normal 0.0-0.1 [facility] Comment on above: Performed By: #### C BC #### [facility] [place] [facility] [address] [place] [address] Dr. Lis Oakley Basophils/100 WBC (Bld) 0.5 % Normal 0.2-2.0 [facility] Comment on above: Performed By: #### C BC #### [facility] [place] [facility] [address] [place] [address] Dr. Lis Oakley EO # 0.2 103/ul Normal 0.0-0.7 [facility] Comment on above: Performed By: #### C BC #### [facility] [place] [facility] [address] [place] [address] Dr. Lis Oakley Eosinophils/100 WBC (Bld) 1.6 % Normal 0.9-7.0 [facility] Comment on above: Performed By: #### C BC #### [facility] [place] [facility] [address] [place] [address] Dr. Lis Oakley Erythrocyte distribution width (RBC) [Ratio] 13.7 % Normal 11.0-15.0 [facility] Comment on above: Performed By: #### C BC #### [facility] [place] [facility] [address] [place] [address] Dr. Lis Oakley Hematocrit (Bld) [Volume fraction] 32.0 % Critically low 36.0-48.0 [facility] [place] Comment on above: Performed By: #### C BC #### [facility] [place] [facility] [address] [place] [address] Dr. Lis Oakley Hemoglobin (Bld) [Mass/Vol] 10.1 g/dL Critically low 12.0-16.0 [facility] Comment on above: Performed By: #### C BC #### [facility] [place] [facility] [address] [address] [address] Lis Oakley IG # 0.09 10e3/ul Critically high 0.00-0.03 [facility] Comment on above: Performed By: #### C BC #### [facility] [place] [facility] [address] [place] [address] Dr. Lis Oakley IG % 0.7 % Critically high 0.0-0.5 [facility] Comment on above: Performed By: #### C BC #### [facility] [place] [facility] [address] [place] [address] Dr. Lis Oakley LYMPH # 2.4 103/ul Normal 1.2-3.8 [facility] Comment on above: Performed By: #### C BC #### [facility] [place] [facility] [address] [place] [address] Dr. Lis Oakley Lymphocytes/100 WBC (Bld) 19.5 % Critically low 20.5-60.0 [facility] Comment on above: Performed By: #### C BC #### [facility] [place] [facility] [address] [place] [address] Dr. Lis Oakley MANUAL DIFF REQ NO Normal [facility] Comment on above: Performed By: #### C BC #### [facility] [place] [facility] [address] [place] [address] Dr. Lis Oakley MCH (RBC) [Entitic mass] 25.6 pg Critically low 26.7-34.0 [facility] Comment on above: Performed By: #### C BC #### [facility] [place] [facility] [address] [place] [address] Dr. Lis Oakley MCHC (RBC) [Mass/Vol] 31.6 g/dL Normal 29.9-35.2 [facility] [place] Comment on above: Performed By: #### C BC #### [facility] [place] [facility] [address] [place] [address] Dr. Lis Oakley MCV (RBC) [Entitic vol] 81.0 fL Normal 81.0-99.0 [facility] Comment on above: Performed By: #### C BC #### [facility] [place] [facility] [address] [place] [address] Dr. Lis Oakley MONO # 0.8 103/ul Normal 0.3-0.8 [facility] Comment on above: Performed By: #### C BC #### [facility] [place] [facility] [address] [place] [address] Dr. Lis Oakley Monocytes/100 WBC (Bld) 6.9 % Normal 1.7-12.0 [facility] Comment on above: Performed By: #### C BC #### [facility] [place] [facility] [address] [place] [address] Dr. Lis Oakley NEUT # 8.6 103/ul Critically high 1.4-6.5 [facility] Comment on above: Performed By: #### C BC #### [facility] [place] [facility] [address] [place] [address] Dr. Lis Oakley Neutrophils/100 WBC (Bld) 70.8 % Normal 43.0-75.0 [facility] Comment on above: Performed By: #### C BC #### [facility] [place] [facility] [address] [place] [address] Dr. Lis Oakley Platelet mean volume (Bld) [Entitic vol] 10.0 fL Normal 9.5-13.5 [facility] [place] Comment on above: Performed By: #### C BC #### [facility] [place] [facility] [address] [place] [address] Dr. Lis Oakley PLT 315 103/ul Normal 150-450 [facility] [place] Comment on above: Performed By: #### C BC #### [facility] [place] [facility] [address] [place] [address] Dr. Lis Oakley RBC 3.95 106/ul Critically low 4.20-5.40 [facility] Comment on above: Performed By: #### C BC #### [facility] [place] [facility] [address] [place] [address] Dr. Lis Oakley WBC 12.2 103/ul Critically high 4.0-11.0 [facility] Comment on above: Performed By: #### C BC #### [facility] [address] [place] [address] Dr. Lis Oakley CULTURE URINEon 07-15-2022 CULTURE URINE Culture Observations : MODERATE GROWTH OF MIXED GENITAL DORIAN. NO POTENTIAL PATHOGENS SEEN. Normal [facility] [place] Comment on above: Performed By: #### C BC #### [facility] [address] [place] [address] Dr. Lis Oakley GLYCOHEMOGLOBIN A1Con 2022 ADA RECOMMENDATION SEE BELOW Normal [facility] Comment on above: Result Comment: ADA RECOMMENDED LIMIT 4.0 - 6.0 ADA THERAPEUTIC TARGET < 7.0 ACTION SUGGESTED > 7.0 Performed By: #### C BC #### [facility] [address] [place] [address] Dr. Lis Oakley Glucose [Mass/Vol] 114 mg/dL Normal [facility] Comment on above: Performed By: #### C BC #### [facility] [address] [place] [address] Dr. Lis Oakley HbA1c (Bld) [Mass fraction] 5.6 % Normal 4.5-6.2 [facility] Comment on above: Performed By: #### C BC #### [facility] [address] [place] [address] Dr. Lis Oakley TYPE AND SCREENon 07-15-2022 TYPE AND SCREEN Negative Normal [facility] Comment on above: Performed By: #### T NS #### [facility] [address] [place] [address] Dr. Lis Oakley CBC AUTO DIFFon 06-17-2022 BASO # 0.1 103/ul Normal 0.0-0.1 [facility] Comment on above: Performed By: #### C BC #### [facility] [address] [place] [address] Dr. Lis Oakley Basophils/100 WBC (Bld) 0.5 % Normal 0.2-2.0 [facility] Comment on above: Performed By: #### C BC #### [facility] [address] [place] [address] Dr. Lis Oakley EO # 0.1 103/ul Normal 0.0-0.7 [facility] Comment on above: Performed By: #### C BC #### [facility] [address] [address] [address] Lis Oakley Eosinophils/100 WBC (Bld) 1.3 % Normal 0.9-7.0 [facility] Comment on above: Performed By: #### C BC #### [facility] [address] [place] [address] Dr. Lis Oakley Erythrocyte distribution width (RBC) [Ratio] 13.9 % Normal 11.0-15.0 [facility] Comment on above: Performed By: #### C BC #### [facility] [address] [place] [address] Dr. Lis Oakley Hematocrit (Bld) [Volume fraction] 31.8 % Critically low 36.0-48.0 [facility] Comment on above: Performed By: #### C BC #### [facility] [address] [place] [address] Dr. Lis Oakley Hemoglobin (Bld) [Mass/Vol] 10.3 g/dL Critically low 12.0-16.0 [facility] Comment on above: Performed By: #### C BC #### [facility] [address] [place] [address] Dr. Lis Oakley IG # 0.07 10e3/ul Critically high 0.00-0.03 [facility] Comment on above: Performed By: #### C BC #### [facility] [address] [place] [address] Dr. Lis Oakley IG % 0.7 % Critically high 0.0-0.5 [facility] Comment on above: Performed By: #### C BC #### [facility] [address] [place] [address] Dr. Lis Oakley LYMPH # 1.7 103/ul Normal 1.2-3.8 [facility] Comment on above: Performed By: #### C BC #### [facility] [address] [place] [address] Dr. Lis Oakley Lymphocytes/100 WBC (Bld) 16.0 % Critically low 20.5-60.0 [facility] Comment on above: Performed By: #### C BC #### [facility] [address] [place] [address] Dr. Lis Oakley MANUAL DIFF REQ NO Normal [facility] Comment on above: Performed By: #### C BC #### [facility] [address] [place] [address] Dr. Lis Oakley MCH (RBC) [Entitic mass] 26.7 pg Normal 26.7-34.0 [facility] Comment on above: Performed By: #### C BC #### [facility] [address] [place] [address] Dr. Lis Oakley MCHC (RBC) [Mass/Vol] 32.4 g/dL Normal 29.9-35.2 [facility] Comment on above: Performed By: #### C BC #### [facility] [address] [place] [address] Dr. Lis Oakley MCV (RBC) [Entitic vol] 82.4 fL Normal 81.0-99.0 [facility] Comment on above: Performed By: #### C BC #### [facility] [address] [place] [address] Dr. Lis Oakley MONO # 0.6 103/ul Normal 0.3-0.8 [facility] Comment on above: Performed By: #### C BC #### [facility] [address] [place] [address] Dr. Lis Oakley Monocytes/100 WBC (Bld) 5.5 % Normal 1.7-12.0 [facility] Comment on above: Performed By: #### C BC #### [facility] [address] [place] [address] Dr. Lis Oakley NEUT # 8.2 103/ul Critically high 1.4-6.5 [facility] Comment on above: Performed By: #### C BC #### [facility] [address] [place] [address] Dr. Lis Oakley Neutrophils/100 WBC (Bld) 76.0 % Critically high 43.0-75.0 [facility] Comment on above: Performed By: #### C BC #### [facility] [address] [address] [address] Lis Oakley Platelet mean volume (Bld) [Entitic vol] 9.6 fL Normal 9.5-13.5 [facility] Comment on above: Performed By: #### C BC #### [facility] [address] [address] [address] Lis Oakley PLT 329 103/ul Normal 150-450 [facility] Comment on above: Performed By: #### C BC #### [facility] [address] [address] [address] Lis Oakley RBC 3.86 106/ul Critically low 4.20-5.40 [facility] Comment on above: Performed By: #### C BC #### [facility] [address] [address] [address] Lis Oakley WBC 10.7 103/ul Normal 4.0-11.0 [facility] Comment on above: Performed By: #### C BC #### [facility] [address] [address] [address] Lis Oakley GLUCOSE - 1HRon 06-17-2022 Glucose [Mass/Vol] 123 mg/dL Critically high 74-106 T [facility] Comment on above: Performed By: #### R UBIGG #### [facility] [address] [address] [address] Lis Oakley US PREG ANATOMY SINGLEon US PREG ANATOMY SINGLE EXAMINATION: US PREG [...] by: RADHA ARORA Date: 2022-05-29 16:12 Normal [facility] AFP MATERNAL FOR SPINA BIFID Aon 05-22-2022 AFP MoM See interpretation. Normal [facility] Comment on above: Performed By: #### A FPMAT #### [facility] [address] [address] [address] Lis Oakley AFP Value 71.3 ng/mL Normal [facility] Comment on above: Performed By: #### A FPMAT #### [facility] [address] [address] [address] Lis Oakley AFP, Serum for Spina Bifida Report Normal [facility] Comment on above: Performed By: #### A FPMAT #### [facility] [address] [address] [address] Lis Oakley Comment Comment Normal [facility] Comment on above: Result Comment: Michelle Saldaña, Ph.D., [facility] Director . References: Available Upon Request. . Multiples Of Median Cutoffs For AFP Elevations Brooks 2.5 Black 2.8 IDD 2.0 Twins 4.5 Abbreviation Definitions IDD - Insulin Dep Diabetes OSBR - Open Spina Bifida Risk . For further inquiries contact [employer] at [phone]. . This test was developed and its performance characteristics determined by [employer]. It has not been cleared or approved by the Food and Drug Administration. Performed By: #### A FPMAT #### [facility] [address] [place] [address] Dr. Lis Mendez Age Collection Date 24.7 weeks [facility] Comment on above: Performed By: #### A FPMAT #### [facility] [address] [place] [address] Dr. Lis Oakley Gestat, Age Based on BALBINA [facility] Comment on above: Result Comment: 09/2022 Recalculations are not recommended when gestational dating by LMP and ultrasound are within 10 days. Performed By: #### A FPMAT #### [facility] [address] [place] [address] Dr. Lis Oakley Insulin Dep Diabetes No Normal [facility] Comment on above: Performed By: #### A FPMAT #### [facility] [address] [place] [address] Dr. Lis Oakley Interpretation Comment Normal [facility] Comment on above: Result Comment: Inte rpretation: An interpretation CANNOT be provided for this patient due to one of the following reasons: 1. Gestational age is <15 weeks. Please submit a second sample at the optimum gestational age for screening (16-18 weeks). OR 2. Gestational age is greater than 23 weeks. Performed By: #### A FPMAT #### [facility] [address] [place] [address] Dr. Lis Oakley [age]BINA [age] Normal [facility] Comment on above: Performed By: #### A FPMAT #### [facility] [address] [place] [address] Dr. Lis Oakley Multiple Gestation No Normal [facility] Comment on above: Performed By: #### A FPMAT #### [facility] [address] [place] [address] Dr. Lis Oakley OSBR Risk 1 IN See interpretation. Normal [facility] Comment on above: Performed By: #### A FPMAT #### [facility] [address] [address] [address] Lis Oakley PDF . Normal [facility] Comment on above: Performed By: #### A FPMAT #### [facility] [address] [address] [address] Lis Oakley Race Normal [facility] Comment on above: Performed By: #### A FPMAT #### [facility] [address] [place] [address] Dr. Lis Oakley Test Results: See interpretation. Normal [facility] Comment on above: Performed By: #### A FPMAT #### [facility] [address] [place] [address] Dr. Lis Oakley US PREG TVon 01-30-2022 [...] BY US CRL: 8 weeks 6 days BABLINA BY US CRL: 09/05/2022 IMPRESSION: 1. Single live intrauterine . Electronically authenticated by: NESTOR NELSON Date: 2022-01-30 16:13 Normal [facility] Vital Signs Date Time Vital Sign Value Performing Clinician Facility 01-05-2025 11:07-0400 Body mass index (BMI) [Ratio] 35.51 kg/m2 [facility] Work Phone: [facility] 01-05-2025 11:07-040 Body weight 88.05 kg [employer] Work Phone: [facility] 01-05-2025 11:07-0400 Diastolic blood pressure 64 mm[Hg] [employer] Work Phone: [facility] 01-05-2025 11:07-0400 Systolic blood pressure 110 mm[Hg] [employer] Work Phone: [facility] 12-05-2024 11:25-0400 Body mass index (BMI) [Ratio] 34.75 kg/m2 Alessandro Zoey DO Work Phone: [facility] 12-05-2024 11:25-0400 Body weight 86.18 kg Alessandro Zoey DO Work Phone: [facility] 12-05-2024 11:25-0400 Diastolic blood pressure 70 mm[Hg] Alessandro Zoey DO Work Phone: [facility] 12-05-2024 11:25-0400 Systolic blood pressure 118 mm[Hg] Alessandro Zoey DO Work Phone: [facility] 11-03-2024 14:18-0400 Body height 157.5 cm [facility] Nurse [facility] 11-03-2024 13:37-0400 Body mass index (BMI) [Ratio] 33.2 kg/m2 [facility] Nurse [facility] 11-03-2024 13:37-0400 Body weight 82.33 kg Nom Nurse [facility] 11-03-2024 13:37-0400 Diastolic blood pressure 72 mm[Hg] Nom Nurse [facility] 11-03-2024 13:37-0400 Systolic blood pressure 120 mm[Hg] Nom Nurse [facility] 06-16-2024 09:46-0500 Body mass index (BMI) [Ratio] 28.96 kg/m2 Alessandro Zoey DO Work Phone: [facility] 06-16-2024 09:46-0500 Body weight 81.38 kg Alessandro Zoey DO Work Phone: [facility] 06-16-2024 09:46-0500 Diastolic blood pressure 74 mm[Hg] Alessandro Zoey DO Work Phone: [facility] 06-16-2024 09:46-0500 Systolic blood pressure 116 mm[Hg] Alessandro Zoey DO Work Phone: [facility] 05-22-2022 16:07-0500 Body weight 93.4416 kg ALESSANDRO ZOEY [facility] Comment on above: Performed By: #### AFPMAT #### [facility] [address] [address] [address] Lis Oakley Encounters Encounter Date Encounter Type Care Provider Facility Start: 01-05-2025 End: 01-05-2025 Bamboo flowsheet Alessandro Zoey DO Work Phone: [facility] Start: 01-05-2025 End: 01-05-2025 Bamboo flowsheet Alessandro Zoey DO Work Phone: [facility] Start: 01-05-2025 End: 01-05-2025 Patient encounter procedure Alessandro Zoey DO Work Phone: [facility] Start: 01-05-2025 End: 01-05-2025 Periodic preventive med est patient 18-39 yrs Alessandro Zoey DO Work Phone: [facility] Comment on above: 16 weeks gestation o f ([facility]); Second trimester ([facility]); Subchorionic hemorrhage in first trimester ([facility]); Screening, , for anatomic survey ([facility]); Exposure to STD; Vaginal discharge; Well woman exam with routine gynecological exam Start: 01-03-2025 End: 01-03-2025 Clinisync Result Encounter Alessandro Zoey DO Work Phone: [facility] Unsolicited Start: 01-03-2025 End: 01-03-2025 Clinisync Result Encounter Alessandro Zoey DO Work Phone: [facility] Unsolicited Start: 12-05-2024 End: 12-05-2024 Bamboo flowsheet Alessandro Zoey DO Work Phone: [facility] Start: 12-05-2024 End: 12-05-2024 Bamboo flowsheet Alessandro Zoey DO Work Phone: [facility] Start: 12-05-2024 End: 12-05-2024 ambulatory ALESSANDRO ZOEY Not Available Start: 12-05-2024 End: 12-05-2024 flow sheet Alessandro Zoey DO Work Phone: [facility] Comment on above: Nausea (Primary Dx); First trimester ([facility]); 12 weeks gestation of ([facility]); Nonintractable headache, unspecified chronicity pattern, unspecified headache type Start: 11-10-2024 End: 11-10-2024 ambulatory ALESSANDRO ZOEY Not Available Start: 11-03-2024 End: 11-03-2024 Office outpatient visit 5 minutes [facility] Zoey Nurse [facility] Comment on above: GA: 7w3d Start: 11-03-2024 End: 11-03-2024 ambulatory ALESSANDRO ZOEY Not Available Start: 06-16-2024 End: 06-16-2024 Clinisync Result Encounter Alessandro Zoey DO Work Phone: [facility] Unsolicited Start: 06-16-2024 End: 06-16-2024 Clinisync Result Encounter Alessandro Zoey DO Work Phone: [facility] Unsolicited Start: 06-16-2024 End: 06-16-2024 flow sheet Alessandro Zoey DO Work Phone: [facility] Comment on above: Miscarriage; Follow-up visit after miscarriage Start: 06-16-2024 End: 06-16-2024 ambulatory ALESSANDRO ZOEY Not Available Start: 09-02-2022 End: 09-02-2022 ambulatory NONE LISTED REQUEST Facility:[facility] Start: 08-27-2022 End: 08-31-2022 Evaluation and management of inpatient DR ESTHER CRAIN . Facility:[facility] Start: 08-19-2022 End: 08-20-2022 ambulatory ALESSANDRO ZOEY Facility:[facility] Start: 08-13-2022 End: 08-13-2022 ambulatory ALESSANDRO ZOEY Facility: Start: 07-15-2022 End: 07-16-2022 ambulatory ALESSANDRO ZOEY Facility:[facility] Start: 06-17-2022 End: 06-18-2022 ambulatory ALESSANDRO ZOEY Facility: Start: 05-29-2022 End: 05-30-[address] RADHA ARORA Facility:[facility] Start: 05-19-2022 End: 05-20-2022 ambulatory ALESSANDRO GREER Facility:[facility] Start: 02-06-2022 ambulatory NONE LISTED REQUEST Facility:[facility] Start: 01-30-2022 End: 01-31-2022 ambulatory ALESSANDRO ZOEY Facility: Procedures Date Procedure Procedure Detail Performing Clinician Start: 01-05-2025 Urnls dip stick/tabl et rgnt non-auto w/o micrscp Alessandro Zoey DO Work Phone: Start: 01-03-2025 BOX TEST Alessandro Fazi o DO Work Phone: Start: 12-05-2024 Urnls dip stick/tabl et rgnt non-auto w/o micrscp Alessandro Zoey DO Work Phone: Start: 11-03-2024 End: 11-03-2024 Urnls dip stick/tablet rgnt non-auto w/o micrscp Alessandro Zoey DO Work Phone: Start: 06-16-2024 [facility] PREG QUANT HCG Core y Zoey DO Work Phone: Start: 08-28-2022 Extraction of Produc ts of Conception, Low Cervical, Open Approach ALESSANDRO ZOEY Start: 08-28-2022 Drainage of Amniotic Fluid, Therapeutic from Products of Conception, Via Natural or Artificial Opening ALESSANDRO ZOEY Start: 08-27-2022 Introduction of Othe r Hormone into Peripheral Vein, Percutaneous Approach ALESSANDRO ZOEY Plan of Treatment Date Care Activity Detail Author Start: 01-05-2025 End: 02-05-2025 Alpha fetoprotein, maternal Alpha fetoprotein, maternal Lab Routine 16 weeks gestation of ([facility]) Second trimester ([facility]) Expected: 01/05/2025 (Approximate), Expires: 02/05/2025 [facility] Comment on above: Expected: 01/05/2025 (Approximate), Expires: 02/05/2025 Start: 01-05-2025 End: 04-07-2025 US for US OB 14+ weeks anatomy scan Imaging Routine Screening, , for anatomic survey ([facility]) Expected: 01/05/2025, Expires: 04/07/2025 [facility] Comment on above: Expected: 01/05/2025 , Expires: 04/07/2025 Start: 01-05-2025 End: 01-05-2025 Patient encounter procedure 01/05/2025 10:50 AM EDT Routine [facility] [address] [place] [id number] Alessandro Greer, DO [address] [place] [address] [facility] Start: 12-05-2024 End: 12-05-2024 Patient encounter procedure 12/05/2024 11:10 AM EDT Routine [facility] [address] [place] [id number] Alessandro Greer, DO [address] [place] [address] [place] [address] [facility] Start: 11-03-2024 End: 11-03-2025 ABO/Rh ABO/Rh Lab Routine Missed menses , unspecified gestational age Expected: 11/03/2024 (Approximate), Expires: 11/03/2025 [facility] Comment on above: Expected: 11/03/2024 (Approximate), Expires: 11/03/2025 Start: 11-03-2024 End: 11-03-2025 Blood type and Indirect antibody screen panel - Blood Type and screen Lab Routine Missed menses , unspecified gestational age Expected: 11/03/2024 (Approximate), Expires: 11/03/2025 [facility] Work Phone: Comment on above: Expected: 11/03/2024 (Approximate), Expires: 11/03/2025 Start: 11-03-2024 End: 11-03-2025 Drugs of abuse panel - Urine by Screen method Rapid drug screen, urine Lab Routine , unspecified gestational age Encounter for supervision of normal first in first trimester Expected: 11/03/2024 (Approximate), Expires: 11/03/2025 [facility] Comment on above: Expected: 11/03/2024 (Approximate), Expires: 11/03/2025 Start: 06-16-2024 End: 06-16-2025 hCG, quantitative, hCG, quantitative, Lab Routine Follow-up visit after miscarriage Expected: 06/16/2024 (Approximate), Expires: 06/16/2025 [facility] Work Phone: Comment on above: Expected: 06/16/2024 (Approximate), Expires: 06/16/2025 Bacteria identified in Urine by Culture Urine culture Microbiology Routine Missed menses Ordered: 11/03/2024 [facility] Comment on above: Ordered: 11/03/2024 CBC W Auto Different ial panel - Blood CBC and differential Lab Routine Missed menses , unspecified gestational age Ordered: 11/03/2024 [facility] Comment on above: Ordered: 11/03/2024 CHLAMYDIA TRACHOMATI S (GENITO/STI) CHLAMYDIA TRACHOMATIS (GENITO/STI) Lab Routine Exposure to STD Ordered: 01/05/2025 [facility] Comment on above: Ordered: 01/05/2025 Cytology Cervical or vaginal smear or scraping study Pap Smear Pathology and Cytology Routine Well woman exam with routine gynecological exam Ordered: 01/05/2025 [facility] Comment on above: Ordered: 01/05/2025 Hemoglobin A1c/Hemoglobin.total in Blood Hemoglobin A1c Lab Routine Missed menses , unspecified gestational age Ordered: 11/03/2024 [facility] Comment on above: Ordered: 11/03/2024 Hepatitis B virus surface Ag [Presence] in Serum or Plasma by Immunoassay Hepatitis B surface antigen Lab Routine Missed menses , unspecified gestational age Ordered: 11/03/2024 [facility] Comment on above: Ordered: 11/03/2024 Hepatitis C virus Ab [Presence] in Serum or Plasma by Immunoassay Hepatitis C antibody Lab Routine Missed menses , unspecified gestational age Ordered: 11/03/2024 [facility] Comment on above: Ordered: 11/03/2024 HIV-1/HIV-2 antigen/antibody combination immunoassay HIV-1 and HIV-2 antibodies Lab Routine Missed menses , unspecified gestational age Ordered: 11/03/2024 [facility] Comment on above: Ordered: 11/03/2024 Neisseria gonorrhoea e DNA [Presence] in Unspecified specimen by YOMI with probe detection Neisseria gonorrhea DNA probe, direct Lab Routine Exposure to STD Ordered: 01/05/2025 [facility] Comment on above: Ordered: 01/05/2025 Reagin Ab [Presence] in Serum by RPR RPR Lab Routine Missed menses , unspecified gestational age Ordered: 11/03/2024 [facility] Comment on above: Ordered: 11/03/2024 Rubella antibody, IgG Rubella an tibody, IgG Lab Routine Missed menses , unspecified gestational age Ordered: 11/03/2024 [facility] Comment on above: Ordered: 11/03/2024 SURESWAB(R) ADVANCED VAGINITIS PLUS, TMA SURESWAB(R) ADVANCED VAGINITIS PLUS, TMA Pathology and Cytology Routine Vaginal discharge Ordered: 01/05/2025 [facility] Work Phone: Comment on above: Ordered: 01/05/2025 Payers Date Payer Category Payer Private Health Insurance [id number] 2000 Unknown [id number] 2.16.84 [id number] 2000 Unknown [id number] 2.16.84 [id number] 2000 Unknown [id number] 2.16.84 [id number] 2000 Unknown [id number] 2.16.84 [id number] 2000 Unknown [id number] 2.16.84 0.1.579431.3.579.2.593 2000 Unknown [id number] 2.16.84 0.1.178667.3.579.2.593 2000 Unknown [id number] 2.16.84 0.1.802126.3.579.2.593 2000 Unknown [id number] 2.16.84 0.1.731271.3.579.2.593 2000 Unknown [id number] 2.16.84 0.1.849646.3.579.2.593 2000 Unknown [id number] 2.16.84 0.1.027901.3.579.2.593 2000 Unknown [id number] 2.16.8 40.1.038781.3.579.2.1259 2000 Unknown [id number] 2.16.8 40.1.107932.3.579.2.1259 2000 Unknown [id number] 2.16.8 40.1.021074.3.579.2.1259 2000 Unknown [id number] 2.16.8 [id number] 2000 Unknown [id number] 2.16.84 [id number] 1959 Self-pay 1959 Unknown [id number] 1959 Unknown [id number] Social History Date Type Detail Facility Tobacco smoking stat [facility] Tobacco smoking consumption unknown [facility] Start: 2000 Sex assigned at Not on file [facility] Gender identity Not on file [facility] Start: 09-26-2024 [facility] History of Present illness Narrative 01-05-2025 Mariah Covarrubias LPN - 01/05/2025 10:50 AM EDT Note Date & Type Note Facility 01-05-2025 History of Presen t illness Narrative Reason for Appointment: Patient ID: Lisa Anderson [...] nursing note reviewed. Exam conducted with a soft metals engraver hand present. Vitals: Estimated body mass index is 35.51 kg/m as calculated from the following: Height as of 25: 5' 2 . Weight as of this encounter: 194 lb 1.9 oz. BP: 110/64 Patient's last menstrual period was 09/06/2024. ASSESSMENT & PLAN ICD-10-CM 1. 16 weeks gestation of ([facility]) Z3A.16 POCT urinalysis dipstick manually resulted Alpha fetoprotein, maternal Alpha fetoprotein, maternal 2. Second trimester ([facility]) Z34.92 POCT urinalysis dipstick manually resulted Alpha fetoprotein, maternal Alpha fetoprotein, maternal 3. Subchorionic hemorrhage in first trimester ([facility]) O20.8 4. Screening, , for anatomic survey ([facility]) Z36.89 US OB 14+ weeks anatomy scan US OB 14+ weeks anatomy scan 5. Exposure to STD Z20.2 CHLAMYDIA TRACHOMATIS (GENITO/STI) Neisseria gonorrhea DNA probe, direct 6. Vaginal discharge N89.8 SURESWAB(R) ADVANCED VAGINITIS PLUS, TMA 7. Well woman exam with routine gynecological exam Z01.419 Pap Smear Return OB/Annual Exam: Patient presents today for a annual exam/routine obstetrics appointment. Patient is currently 16w3d . Patient states she is doing well but [...] by Mariah Covarrubias LPN on behalf of: Alessandro rGeer DO documented in this encounter [facility] History of Present illness Narrative 12-05-2024 ANNELIESE Ye - 12/05/2024 11:10 AM EDT Note Date & Type Note Facility 12-05-2024 History of Presen t illness Narrative Reason for Appointment: Patient ID: Lisa Anderson is a 24 y.o. female who presents for Routine Visit Patient presents today for Return OB appointment. MEDICATIONS Current Outpatient Medications Medication Instructions ondansetron ODT (ZOFRAN-ODT) 4 mg, Oral, Every 8 hours PRN MV-Min-Fe Fum-FA-DHA ( 1 PO) Take by mouth ALLERGIES No Known Allergies PROBLEMS Active Ambulatory Problems Diagnosis Date Noted No Active Ambulatory Problems Resolved Ambulatory Problems Diagnosis Date Noted No Resolved Ambulatory Problems No Additional Past Medical History HISTORY PAST MEDICAL HISTORY SOCIAL HISTORY No past medical history on file. Social History Tobacco Use Smoking status: Not [...] Exam Constitutional: Appearance: Normal appearance. She is normal weight. HENT: Head: Normocephalic. Cardiovascular: Rate and Rhythm: Normal rate. Pulses: Normal pulses. Pulmonary: Effort: Pulmonary effort is normal. Breath sounds: Normal breath sounds. Abdominal: Palpations: Abdomen is soft. Musculoskeletal: General: Normal range of motion. Neurological: General: No focal deficit present. Mental Status: She is alert and oriented to person, place, and time. Psychiatric: Mood and Affect: Mood normal. Behavior: Behavior normal. Thought Content: Thought content normal. Judgment: Judgment normal. Vitals and nursing note reviewed. Vitals: Estimated body mass index is 34.75 kg/m as calculated from the following: Height as of 25: 5' 2 . Weight as of this encounter: 190 lb. BP: 118/70 Patient's last menstrual period was 09/06/2024. ASSESSMENT & PLAN ICD-10-CM 1. Nausea R11.0 ondansetron ODT (Zofran-ODT) 4 MG disintegrating tablet 2. First trimester ([facility]) Z34.91 POCT urinalysis dipstick manually resulted 3. 12 weeks gestation of ([facility]) Z3A.12 Return OB: Patient presents today for a routine obstetrics appointment. Patient is currently 12w0d . Patient states she is doing well but has complaints of being tired due to current . Orders Placed This Encounter Procedures POCT urinalysis dipstick manually resulted Follow Up: Patient is to return to office in 2 week for routine OB appointment. Documented by ANNELIESE Ye on behalf of: Alessandro Greer DO documented in this encounter [facility] History of Present illness Narrative 11-03-2024 Elizabeth Tsang MA - 11/03/2024 1:30 PM EDT Note Date & Type Note Facility 11-03-2024 History of Presen t illness Narrative Reason for Appointment: Patient ID: Lisa Anderson is a 24 y.o. female who presents for Amenorrhea Patient presents today for a Nurse OB Intake appointment. Patient is 7w3d with a Estimated Date of Delivery: 06/19/25 OB History Para Term AB Living 2 SAB IAB Ectopic Multiple Live Births # Outcome Date GA Lbr Dennis/2nd Weight Sex Type Anes PTL Lv 2 Current 1 Current Medications: has a current medication list which includes the following prescription(s): mv-min-fe fum-fa-dha, ondansetron odt, and progesterone. Medical History: Active Ambulatory Problems Diagnosis Date Noted No Active Ambulatory Problems Resolved Ambulatory Problems Diagnosis Date Noted No Resolved Ambulatory Problems No Additional Past Medical History No family history on file. Social History Tobacco Use Smoking status: Not on file Smokeless tobacco: Not on file Substance Use Topics Alcohol use: Not on file Drug use: Not on file No past surgical history on file. No Known Allergies Vitals: Estimated body mass index is 33.2 kg/m as calculated from the following: Height as of this encounter: 5' 2 . Weight as of this encounter: 181 lb 8 oz. BP: 120/72 Patient's last menstrual period was 09/06/2024. Assessment/Plan Diagnoses and all orders for this visit: Missed menses - Type and screen; Future - ABO/Rh; Future - CBC and differential - Hemoglobin A1c - RPR - Rubella antibody, IgG - Hepatitis B surface antigen - Hepatitis C antibody - HIV-1 and HIV-2 antibodies - Urine culture - POCT , urine manually resulted - POCT urinalysis dipstick manually resulted , unspecified gestational age - Type and screen; Future - ABO/Rh; Future - CBC and differential - Hemoglobin A1c - RPR - Rubella antibody, IgG - Hepatitis B surface antigen - Hepatitis C antibody - HIV-1 and HIV-2 antibodies - Rapid drug screen, urine; Future - ondansetron ODT (Zofran-ODT) 4 MG disintegrating tablet; Take 1 tablet (4 mg) by mouth every 6 (six) hours if needed for nausea or vomiting Encounter for supervision of normal first in first trimester - Rapid drug screen, urine; Future Nurse Note: OB Intake: Patient presents today for first OB visit. Patients history has been reviewed in great detail including any potential risks. Patient signed consent forms and patient desires testing in both trimesters. Patient currently has no complaints and has been advised to drink 6-8 glasses of water a day, eat no raw or undercooked meat, and stay away from [facility]. Patient has also been advised to not change litter boxes and eat 6 small meals a day. Patient has been consulted regarding the do's and don'ts of . Patient was given labs and all questions and concerns were answered. Pt complained of nausea - zofran sent to pharmacy Follow Up: Patient is to have labs drawn as directed and return to office for initial OB appointment with provider in 4wks. Patient may call office as needed with any concerns or questions. Nurse Visit Completed by: Elizabeth Tsang MA documented in this encounter [facility] History of Present illness Narrative 06-16-2024 Mariah Covarrubias LPN - 06/16/2024 9:20 AM EST Note Date & Type Note Facility 06-16-2024 History of Presen t illness Narrative Reason for Appointment: Patient ID: Lisa Anderson is a 24 y.o. female who presents for Miscarriage and Follow-up Patient presents today for Consult appointment. MEDICATIONS No current outpatient medications ALLERGIES Not on File PROBLEMS Active Ambulatory Problems Diagnosis Date Noted [...] No family history on file. SURGICAL HISTORY History reviewed. No pertinent surgical history. REVIEW OF SYSTEMS Review of Systems: Review of Systems All other systems reviewed and are negative. OBJECTIVE Objective: Physical Exam Constitutional: Appearance: Normal appearance. She is well-developed. Cardiovascular: Rate and Rhythm: Normal rate and [...] nursing note reviewed. Exam conducted with a soft metals engraver hand present. Vitals: Estimated body mass index is 28.96 kg/m as calculated from the following: Height as of 10/08/22: 5' 6 . Weight as of this encounter: 179 lb 6.4 oz. BP: 116/74 No LMP recorded. ASSESSMENT & PLAN ICD-10-CM 1. Miscarriage O03.9 2. Follow-up visit after miscarriage Z51.89 O03.9 Patient presents today for follow up miscarriage. Discussed plan of care moving forward for future pregnancies. Answered patients questions. Patient to return to clinic for routine annual. Patient given order for HCG to be drawn until below 5. Patient given Ubrelvy samples for headache. With next patient will call office and have Progesterone suppositories prescribed for twice daily. Patient will consider continuous control in the future. Documented by Mariah Covarrubias LPN on behalf of: Alessandro Greer DO documented in this encounter [facility] Clinical Note 08-27-2022 Note Date & Type Note Facility 08-27-2022 Note OPERATIVE NOTE OPERATION DATE: 08/28/2022 PROCEDURE: Primary low transverse section. PREOPERATIVE DIAGNOSIS: 1. Intrauterine at 39 weeks. 2. Failure to dilate. 3. Failure to descend. POSTOPERATIVE DIAGNOSIS: 1. Intrauterine at 39 weeks. 2. Failure to dilate. 3. Failure to descend. ANESTHESIA: Spinal. SURGEON: Alesasndro Greer D.O. FORECAST ANALYST: GABY Lou URINE OUTPUT: Yellow and clear. [...] the Recovery Room in stable condition. [facility] Discharge summary note 08-27-2022 Note Date & [...] free and no longer on narcotics. [facility] Evaluation note Note Date & Type Note Facility Evaluation note Diagnosis Miscarriage Unspecified spontaneous without mention of complication Follow-up visit after miscarriage documented in this encounter [facility] Evaluation note Note Date & Type Note Facility Evaluation note Diagnosis Missed menses , unspecified gestational age Encounter for supervision of normal first in first trimester documented in this encounter [facility] Evaluation note Note Date & Type Note Facility Evaluation note Diagnosis Nausea- Primary Nausea alone First trimester ([facility]) state, incidental 12 weeks gestation of ([facility]) Nonintractable headache, unspecified chronicity pattern, unspecified headache type documented in this encounter [facility] Evaluation note Note Date & Type Note Facility Evaluation note Diagnosis 16 weeks gestation of ([facility]) Second trimester ([facility]) state, incidental Subchorionic hemorrhage in first trimester ([facility]) Screening, , for anatomic survey ([facility]) Encounter for anatomic survey Exposure to STD Vaginal discharge Leukorrhea, not specified as infective Well woman exam with routine gynecological exam Routine gynecological examination documented in this encounter [facility] Summary Purpose Family History No Family History Records FoundNo Family History Records Found Advance Directives No Advanced Directives Records FoundNo Advanced Directives Records Found Additional Source Comments INFORMATION SOURCE (unrecogn ized section and content) DATE CREATED AUTHOR 09/25/2022 [facility] DATE CREATED AUTHOR AUTHOR'S ORGANIZ ATION 12/09/2024 [facility] EPIC Reason for Visit (unrecogniz ed section and content) Reason Comments Miscarriage Follow-up Reason Comments Amenorrhea Reason Comments Routine Visit Reason Comments Routine Visit Well Women Visit STI Screening FOR RECORDS PERTAINING TO PATIENTS WHO ARE [...] BE BASED ON THE PRIMARY CLINICAL RECORDS. [facility]. provides no warranty or guarantee of the accuracy or completeness of information in this document.
[2025-01-10 22:07] LABS: Age Gdln ACOG Testing Note (.); IGP, rfx Aptima HPV ASCU Note (.)
== END 2025-01-05 19:35 | disposition home or self-care (01) ==
LOC: LAB 19:34
PROVIDERS: Visit Provider Obstetrics & Gynecology
DX: Z01.419 Encounter for gynecological examination (general) (routine) without abnormal findings (principal)
CPT/HCPCS: 88175

== ENCOUNTER 2025-03-14 08:03 | Outpatient (OUT) | payer OTHER, SELFPAY ==
--- OUTSIDE RECORDS SUMMARY | 2025-03-14 08:07 | XMS_ITS | CCD ---
Author Organization [facility] Care Team Providers Care Manager Nicu Name Role Phone ZOEY, ALESSANDRO Consulting Unavailable REQUEST, NONE LISTED Primary Care Unavaila ble ZOEY, ALESSANDRO Attending Unavailable ZOEY, ALESSANDRO Admitting Unavailable ZOEY, ALESSANDRO Consulting Unavailable REQUEST, NONE LISTED Primary Care Unavaila ble ZOEY, ALESSANDRO Attending Unavailable OZEY, ALESSANDRO Admitting Unavailable ZieberMalicken Consulting Unavailable KARASIK [...] ALESSANDRO Consulting Unavailable Unavailable Primary Care Provider Unavailkaila e ALESSANDRO GREER Attending Unavailable ALESSANDRO GREER Attending Unavailable ALESSANDRO GREER Referring Unavailable ALESSANDRO GREER Attending Unavailable SILVIA RIVAS Attending Unavailable SILVIA RIVAS Attending Unavailable Medications Current Medications Medication Drug [...] 6 12/05/2024 01/04/2025 Active ondansetron 4 mg oral tablet (9 sources) Serotonin-3 Receptor Antagonist Start: 02-06-2025 take 1 tablet by mouth every six hours as needed for nausea and nausea, then take 1 tablet by mouth every six hours as needed for nausea and nausea ondansetron (Zofran) 4 MG tablet Indications: Nausea and vomiting during ([facility]) Take 1 tablet (4 mg) by mouth every 6 (six) hours if needed for nausea or vomiting for up to 30 doses Take 1 tablet by mouth every 6 hours as needed for nausea. 30 tablet 3 02/06/2025 Active Start: 12-05-2024 End: 01-04-2025 take 1 tablet [...] Active MV-Min-Fe Fum-FA-DH A ( 1 PO) (15 sources) MV-Min- Fe Fum-FA-DHA ( 1 PO) [...] Hemorrhage during ; abruptio placenta; placenta previa (4 sources) Subchorionic hematoma; Translations: [Other hemorrhage in [...] 3RD TRI UNS] Onset: 08-19-2022 Episodic Other complications of (2 sources) Vomiting of , unspecified; Translations: [Unspecified vomiting of , unspecified as to episode of care or not applicable] 02-06-2025 Episodic Other female genital disorders (1 source) [...] conditions (not mental disorders or infectious disease) (10 sources) Encounter for screening for diabetes mellitus; [...] [16 weeks gestation of ] 01-05-2025 Episodic Residual codes; unclassified (2 sources) Gestation period, 20 weeks; Translations: [20 weeks gestation of ] 02-06-2025 Episodic Residual codes; unclassified (2 sources) Gestation period, 25 weeks; Translations: [25 weeks gestation of ] 03-08-2025 Episodic Spontaneous (2 sources) Miscarriage; Translations: [Complete or unspecified spontaneous without complication] 06-16-2024 Episodic Past or Other Problems Problem Classification Problem Date Documented Da te Episodic/Chronic Residual codes; unclassified (1 source) 9 weeks gestation of ; Translations: [9 WEEKS GESTATION OF ] Onset: 02-17-2022 Episodic Results Test Name Value Interpretation Reference Range Facility Urinalysis macro (dipstick) panel (U)on 03-08-2025 Bilirubin, UA Negative Negative - 4(70) +++ mg/dL [facility] Blood, UA Negative Negative - 50 Sukumar/mcL [facility] Clarity, UA Cloudy [facility] Color, UA Straw [facility] Glucose, UA Negative Negative - 1999(110) ++++ mg/dL [facility] Interpretation and review of laboratory results Abnormal [facility] Ketones, UA Negative Negative - 160(16) ++++ mg/dL [facility] Leukocytes, UA Negative Negative - 500+++ Dev/mcL [facility] Nitrite, UA Negative Negative - Positive [facility] pH, UA 6.5 5 - 9 [facility] Protein, UA Positive Negative - 1999(20) ++++ mg/dL [facility] Spec Grav, UA 1.015 1 - 1.03 [facility] Urobilinogen, UA 1.0 0.2 - 12 mg/dL [facility] Urinalysis macro (dipstick) panel (U)on 02-06-2025 Bilirubin, UA Positive Negative - 4(70) +++ mg/dL [facility] Comment on above: 3+ Blood, UA Negative Negative - 50 Sukumar/mcL [facility] Clarity, UA Clear [facility] Color, UA Yellow [facility] Glucose, UA Negative Negative - 1999(110) ++++ mg/dL [facility] Interpretation and review of laboratory results Abnormal [facility] Ketones, UA Negative Negative - 160(16) ++++ mg/dL [facility] Leukocytes, UA Negative Negative - 500+++ Dev/mcL [facility] Nitrite, UA Negative Negative - Positive [facility] pH, UA 6 5 - 9 [facility] Protein, UA Positive Negative - 1999(20) ++++ mg/dL [facility] Comment on above: Trace Spec Grav, UA 1.01 1 - 1.03 [facility] Urobilinogen, UA 0.2 0.2 - 12 mg/dL [facility] IGP,APTIMA HPV,AGE GDLNon AGE GDLN ACOG TESTING Note . [facility] Comment on above: TESTS RESULT FLAG UN ITS REF RANGE LAB Clinician Provided Cytology Information Source.............[employer] Other.............. No. of containers..01 ThinPrep Vial Age Gab Cummins... FLAG LEGEND: L-Low Normal,H-High Normal,LL-Alert Low,HH-Alert High <-Panic Low,>-Panic High,A-Abnormal,AA-Critical Abnormal Performed at: 01 =[facility] [id number] Tanika Moran MD, IGP, RFX APTIMA HPV ASCU Note . [facility] Comment on above: TESTS RESULT FLAG UN ITS REF RANGE LAB DIAGNOSIS: 02 NEGATIVE FOR INTRAEPITHELIAL LESION OR MALIGNANCY. Specimen adequacy: 02 Satisfactory for evaluation. No endocervical component is identified. An endocervical component is not commonly seen in the patient. Performed by: Tian Hager [employer] ([facility]) . 02 Note: Note 02 The Pap smear is a screening test designed to aid in the detection of premalignant and malignant conditions of the uterine cervix. It is not a diagnostic procedure and should not be used as the sole means of detecting cervical cancer. Both false-positive and false-negative reports do occur. Test Methodology: Note 02 This liquid based ThinPrep(R) pap test was screened with the use of an image guided system. . 02 The HPV DNA reflex criteria were not met with this specimen result therefore, no HPV testing was performed. FLAG LEGEND: L-Low Normal,H-High Normal,LL-Alert Low,HH-Alert High <-Panic Low,>-Panic High,A-Abnormal,AA-Critical Abnormal Performed at: [address] [address] Tanika Moran MD, Performed at: =[facility] [id number] [employer]: Tanika Moran MD, Phone: [phone] Performed at: [address] [id number] [employer]: Tanika Moran MD, Phone: [phone] [facility] RECURRENT VAGINITIS (HTRX)on 01-06-2025 ATOPOBIUM VAGINAE 0 [facility] ATOPOBIUM VAGINAE Not detected [facility] BVAB 2,3 (BACTERIAL VAGINOSIS ASSOCIATED BACTERIA 2, 3); MOBILUNCUS SPP 0 [facility] BVAB 2,3 (BACTERIAL VAGINOSIS ASSOCIATED BACTERIA 2, 3); MOBILUNCUS SPP Not detected [facility] MARCELLE ALBICANS, PARAPSILOSIS, TROPICALIS 0 [facility] MARCELLE ALBICANS, PARAPSILOSIS, TROPICALIS Not detected [facility] MARCELLE GLABRATA 0 [facility] MARCELLE GLABRATA Not detected [facility] MARCELLE KRUSEI 0 [facility] MARCELLE KRUSEI Not detected [facility] CHLAMYDIA TRACHOMATIS 0 [facility] CHLAMYDIA TRACHOMATIS Not detected [facility] GARDNERELLA VAGINALIS 0 [facility] GARDNERELLA VAGINALIS Not detected [facility] MEGASPHAERA (TYPES 1, 2) 0 [facility] MEGASPHAERA (TYPES 1, 2) Not detected [facility] MYCOPLASMA GENITALIUM 0 [facility] MYCOPLASMA GENITALIUM Not detected [facility] NEISSERIA GONORRHOEAE 0 [facility] NEISSERIA GONORRHOEAE Not detected [facility] TRICHOMONAS VAGINALIS 0 [facility] TRICHOMONAS VAGINALIS Not detected [facility] US OB 14+ WEEKS ANATOMY SCAN on 01-05-2025 US OB 14+ WEEKS ANATOMY SCAN FINDINGS: A single, live intrauterine is present with normal cardiac rate of 156 beats per minute. Normal activity and amniotic fluid volume. Amniotic fluid index is cm. Morphology is grossly normal. The placenta is anterior, 5.6 cm from the closed internal cervical os, length 4.6 cm. The current sonographic age is 21 weeks and 1 day, based on the following measurements: BPD 4.9 cm (20 weeks, 6 days) Head Circumference 18.3 cm (20 weeks, 5 days) Abdominal Circumference 16.3 cm (21 weeks, 3 days) Femur Length 3.7 cm (21 weeks, 5 days) Presentation Variable Placenta Anterior Weight (g) by Percentile 66.7 % * These measurements result in an estimated date of delivery of June 18, 2025 The current estimated weight is 421 grams (0 pounds, 15 ounces). IMPRESSION: Single, live intrauterine , current sonographic age of 21 weeks and 1 day, with an estimated date of delivery of June 18, 2025 * Estimated Weight (g) by Percentile is based upon an accurate estimated age based on last menstrual period. TRANSCRIBED BY: ELECTRONICALLY SIGNED BY: Christophe Ramirez MD Normal Not Available Comment on above: Order Comment: US OB ANATOMY SINGLE W US OB CERVICAL LENGTH Estimated Date of Delivery: 06/19/25 Gestational Age as of 01/05/2025: 16w3d Urinalysis macro (dipstick) panel (U)on 01-05-2025 Bilirubin, UA Negative Negative - 4(70) +++ mg/dL [facility] Blood, UA Negative Negative - 50 Sukumar/mcL [facility] Clarity, UA Clear [facility] Color, UA Yellow [facility] Glucose, UA Negative Negative - 2000(110) ++++ mg/dL [facility] Interpretation and review of laboratory results Normal [facility] Ketones, UA Negative Negative - 160(16) ++++ mg/dL [facility] Leukocytes, UA Negative Negative - 500+++ Dev/mcL [facility] Nitrite, UA Negative Negative - Positive [facility] pH, UA 6 5 - 9 [facility] Protein, UA Negative Negative - 2000(20) ++++ mg/dL [facility] Spec Grav, UA 1.02 1 - 1.03 [facility] Urobilinogen, UA 1.0 0.2 - 12 mg/dL [facility] BOX TESTon 01-03-2025 BOX TEST SENT OUT [facility] BOX1 [facility] BOX2 01/03/25 [facility] Urinalysis macro (dipstick) panel (U)on 12-05-2024 Bilirubin, UA Negative Negative - 4(70) +++ mg/dL [facility] Blood, UA Negative Negative - 50 Sukumar/mcL [facility] Clarity, UA Clear [facility] Color, UA Yellow [facility] Glucose, UA Negative Negative - 1999(110) ++++ mg/dL [facility] Interpretation and review of laboratory results Normal [facility] Ketones, UA Negative Negative - 160(16) ++++ mg/dL [facility] Leukocytes, UA Negative Negative - 500+++ Dev/mcL [facility] Nitrite, UA Negative Negative - Positive [facility] pH, UA 6 5 - 9 [facility] Protein, UA Negative Negative - 2000(20) ++++ mg/dL [facility] Spec Grav, UA 1.02 1 - 1.03 [facility] Urobilinogen, UA 0.2 0.2 - 12 mg/dL [facility] US OB TRANSVAGINALon 11-10-2 025 US OB TRANSVAGINAL EXAM: US OB [...] II, MD, PHD at 11-Nov-2024 10:24:39 AM [facility] Chip Estimate Normal Not Available Comment on above: Order Comment: US OB VIABILITY PLEASE PERFORM TRANSVAGINAL ULTRASOUND IF INDICATED Patient's last menstrual period was 09/06/2024. HCG ( test) Ql (U)o n 11-03-2024 Interpretation and review of laboratory results Abnormal [facility] Preg Test, Ur Positive Negative [facility] OB TRANSVAGINALon 025 US OB TRANSVAGINAL EXAM: [...] II, MD, PHD at 04-Nov-2024 08:26:23 AM [facility] Normal Not Available Comment on above: Order Comment: US OB TRANSVAGINAL No LMP recorded. Urinalysis macro (dipstick) panel (U)on 11-03-2024 Bilirubin, UA Negative Negative - 4(70) +++ mg/dL [facility] Blood, UA Negative Negative - 50 Sukumar/mcL [facility] Clarity, UA Clear [facility] Color, UA Yellow [facility] Glucose, UA Negative Negative - 1999(110) ++++ mg/dL [facility] Interpretation and review of laboratory results Abnormal [facility] Ketones, UA Negative Negative - 160(16) ++++ mg/dL [facility] Leukocytes, UA Positive Negative - 500+++ Dev/mcL [facility] Comment on above: small Nitrite, UA Negative Negative - Positive [facility] pH, UA 6.5 5 - 9 [facility] Protein, UA Negative Negative - 2000(20) ++++ mg/dL [facility] Spec Grav, UA 1.03 1 - 1.03 [facility] Urobilinogen, UA 0.2 0.2 - 12 mg/dL [facility] TBH PREG QUANT HCGon 025 HCG QUANTITATIVE 4 mIU/mL [facility] Comment on above: 5-50 0.2-1 WEEK 50-500 1-2 WEEKS 100-5,000 2-3 WEEKS 500-10,000 3-4 WEEKS 1,000-50,000 4-5 WEEKS 10,000-100,000 5-6 WEEKS 15,000-200,000 6-8 WEEKS 10,000-100,000 2-3 MONTHS [facility] CBC AUTO DIFFon 08-29-2022 BASO # 0.1 103/ul Normal 0.0-0.1 [facility] Comment on above: Performed By: #### C BC #### [facility] [address] [address] [address] Lis Oakley Basophils/100 WBC (Bld) 0.3 % Normal 0.2-2.0 [facility] Comment on above: Performed By: #### C BC #### [facility] [address] [address] [address] Lis Oakley EO # 0.0 103/ul Normal 0.0-0.7 [facility] Comment on above: Performed By: #### C BC #### [facility] [address] [address] [address] Lis Oakley Eosinophils/100 WBC (Bld) 0.0 % Critically low 0.9-7.0 [facility] Comment on above: Performed By: #### C BC #### [facility] [address] [address] [address] Lis Oakley Erythrocyte distribution width (RBC) [Ratio] 15.0 % Normal 11.0-15.0 [facility] Comment on above: Performed By: #### C BC #### [facility] [address] [address] [address] Lis Oakley Hematocrit (Bld) [Volume fraction] 26.4 % Critically low 36.0-48.0 [facility] Comment on above: Performed By: #### C BC #### [facility] [address] [address] [address] Lis Oakley Hemoglobin (Bld) [Mass/Vol] 8.1 g/dL Critically low 12.0-16.0 [facility] Comment on above: Performed By: #### C BC #### [facility] [address] [address] [address] Lis Oakley IG # 0.10 10e3/ul Critically high 0.00-0.[address] [facility] Comment on above: Performed By: #### C BC #### [facility] [address] [address] [address] Lis Oakley IG % 0.6 % Critically high 0.0-0.5 [facility] Comment on above: Performed By: #### C BC #### [facility] [address] [address] [address] Lis Oakley LYMPH # 1.0 103/ul Critically low 1.2-3.8 [facility] Comment on above: Performed By: #### C BC #### [facility] [address] [address] [address] Lis Oakley Lymphocytes/100 WBC (Bld) 5.8 % Critically low 20.5-60.0 [facility] Comment on above: Performed By: #### C BC #### [facility] [address] [place] [address] Dr. Lis Oakley MANUAL DIFF REQ NO Normal [facility] Comment on above: Performed By: #### C BC #### [facility] [address] [address] [address] Lis Oakley MCH (RBC) [Entitic mass] 23.8 pg Critically low 26.7-34.0 [facility] Comment on above: Performed By: #### C BC #### [facility] [address] [address] [address] Lis Oakley MCHC (RBC) [Mass/Vol] 30.7 g/dL Normal 29.9-35.2 [facility] Comment on above: Performed By: #### C BC #### [facility] [address] [address] [address] Lis Oakley MCV (RBC) [Entitic vol] 77.4 fL Critically low 81.0-99.0 [facility] Comment on above: Performed By: #### C BC #### [facility] [address] [place] [address] Dr. Lis Oakley MONO # 0.7 103/ul Normal 0.3-0.8 [facility] Comment on above: Performed By: #### C BC #### [facility] [address] [address] [address] Lis Oakley Monocytes/100 WBC (Bld) 3.9 % Normal 1.7-12.0 [facility] Comment on above: Performed By: #### C BC #### [facility] [address] [address] [address] Lis Oakley NEUT # 16.0 103/ul Critically high 1.4-6.5 [facility] Comment on above: Performed By: #### C BC #### [facility] [address] [address] [address] Lis Oakley Neutrophils/100 WBC (Bld) 89.4 % Critically high 43.0-75.0 [facility] Comment on above: Performed By: #### C BC #### [facility] [address] [place] [address] Dr. Lis Oakley Platelet mean volume (Bld) [Entitic vol] 10.7 fL Normal 9.5-13.5 [facility] Comment on above: Performed By: #### C BC #### [facility] [address] [address] [address] Lis Oakley PLT 271 103/ul Normal 150-450 [facility] Comment on above: Performed By: #### C BC #### [facility] [address] [place] [address] Dr. Lis Oakley RBC 3.41 106/ul Critically low 4.20-5.40 [facility] Comment on above: Performed By: #### C BC #### [facility] [address] [place] [address] Dr. Lis Oakley WBC 17.9 103/ul Critically high 4.0-11.0 [facility] Comment on above: Performed By: #### C BC #### [facility] [address] [place] [address] Dr. Lis Oakley CBC AUTO DIFFon 08-27-2022 BASO # 0.0 103/ul Normal 0.0-0.1 [facility] Comment on above: Performed By: #### R UBIGG #### [facility] [address] [address] [address] Lis Oakley Basophils/100 WBC (Bld) 0.4 % Normal 0.2-2.0 [facility] Comment on above: Performed By: #### R UBIGG #### [facility] [address] [place] [address] Dr. Lis Oakley EO # 0.1 103/ul Normal 0.0-0.7 [facility] Comment on above: Performed By: #### R UBIGG #### [facility] [address] [place] [address] Dr. Lis Oakley Eosinophils/100 WBC (Bld) 0.6 % Critically low 0.9-7.0 [facility] Comment on above: Performed By: #### R UBIGG #### [facility] [address] [place] [address] Dr. Lis Oakley Erythrocyte distribution width (RBC) [Ratio] 14.6 % Normal 11.0-15.0 [facility] Comment on above: Performed By: #### R UBIGG #### [facility] [address] [place] [address] Dr. Lis Oakley Hematocrit (Bld) [Volume fraction] 30.4 % Critically low 36.0-48.0 [facility] Comment on above: Performed By: #### R UBIGG #### [facility] [address] [place] [address] Dr. Lis Oakley Hemoglobin (Bld) [Mass/Vol] 9.7 g/dL Critically low 12.0-16.0 [facility] Comment on above: Performed By: #### R UBIGG #### [facility] [address] [place] [address] Dr. Lis Oakley IG # 0.06 10e3/ul Critically high 0.00-0.[address] [facility] Comment on above: Performed By: #### R UBIGG #### [facility] [address] [place] [address] Dr. Lis Oakley IG % 0.6 % Critically high 0.0-0.5 [facility] Comment on above: Performed By: #### R UBIGG #### [facility] [address] [place] [address] Dr. Lis Oakley LYMPH # 1.7 103/ul Normal 1.2-3.8 [facility] Comment on above: Performed By: #### R UBIGG #### [facility] [address] [place] [address] Dr. Lis Oakley Lymphocytes/100 WBC (Bld) 16.3 % Critically low 20.5-60.0 [facility] Comment on above: Performed By: #### R UBIGG #### [facility] [address] [place] [address] Dr. Lis Oakley MANUAL DIFF REQ NO Normal [facility] Comment on above: Performed By: #### R UBIGG #### [facility] [address] [place] [address] Dr. Lis Oakley MCH (RBC) [Entitic mass] 24.3 pg Critically low 26.7-34.0 [facility] Comment on above: Performed By: #### R UBIGG #### [facility] [address] [place] [address] Dr. Lis Oakley MCHC (RBC) [Mass/Vol] 31.9 g/dL Normal 29.9-35.2 [facility] Comment on above: Performed By: #### R UBIGG #### [facility] [address] [place] [address] Dr. Lis Oakley MCV (RBC) [Entitic vol] 76.0 fL Critically low 81.0-99.0 [facility] Comment on above: Performed By: #### R UBIGG #### [facility] [address] [place] [address] Dr. Lis Oakley MONO # 0.5 103/ul Normal 0.3-0.8 [facility] Comment on above: Performed By: #### R UBIGG #### [facility] [address] [place] [address] Dr. Lis Oakley Monocytes/100 WBC (Bld) 4.5 % Normal 1.7-12.0 [facility] Comment on above: Performed By: #### R UBIGG #### [facility] [address] [place] [address] Dr. Lis Oakley NEUT # 7.8 103/ul Critically high 1.4-6.5 [facility] Comment on above: Performed By: #### R UBIGG #### [facility] [address] [place] [address] Dr. Lis Oakley Neutrophils/100 WBC (Bld) 77.6 % Critically high 43.0-75.0 [facility] Comment on above: Performed By: #### R UBIGG #### [facility] [address] [place] [address] Dr. Lis Oakley Platelet mean volume (Bld) [Entitic vol] 10.2 fL Normal 9.5-13.5 [facility] Comment on above: Performed By: #### R UBIGG #### [facility] [address] [place] [address] Dr. Lis Oakley PLT 288 103/ul Normal 150-450 [facility] Comment on above: Performed By: #### R UBIGG #### [facility] [address] [place] [address] Dr. Lis Oakley RBC 4.00 106/ul Critically low 4.20-5.40 [facility] Comment on above: Performed By: #### R UBIGG #### [facility] [address] [place] [address] Dr. Lis Oakley WBC 10.1 103/ul Normal 4.0-11.0 [facility] Comment on above: Performed By: #### R UBIGG #### [facility] [address] [place] [address] Dr. Lis Oakley DRUG SCREEN RAPID (URINE)on 08-27-2022 AMP Negative Normal NEGATIVE [facility] Comment on above: Performed By: #### D RUGRPD #### [facility] [address] [place] [address] Dr. Lis Oakley BAR Negative Normal NEGATIVE [facility] Comment on above: Performed By: #### D RUGRPD #### [facility] [address] [address] [address] Lis Oakley BUP Negative Normal NEGATIVE [facility] Comment on above: Performed By: #### D RUGRPD #### [facility] [address] [address] [address] Lis Oakley BZO Negative Normal NEGATIVE [facility] Comment on above: Performed By: #### D RUGRPD #### [facility] [address] [address] [address] Lis Oakley DEBBY Negative Normal NEGATIVE [facility] Comment on above: Performed By: #### D RUGRPD #### [facility] [address] [place] [address] Dr. Lis Oakley CUT-OFFS SEE BELOW Normal [facility] Comment on above: Result Comment: AMP (Amphetamine): 500ng/mL, BAR (Barbituates): 200 ng/mL, BZO (Benzodiazepines): 150 ng/mL, BUP (Buprenorphine): 10 ng/mL, DEBBY (Cocaine): 150 ng/mL, mAMP (Methamphetamine): 500 ng/mL, MTD (Methadone): 200 ng/mL, OPI (Opiates): 100 ng/mL, OXY (Oxycodone): 100 ng/mL, PCP (Phencyclidine): 25 ng/mL, PPX (Propoxyphene): 300 ng/mL, THC (Cannabinoids): 50 ng/mL, TCA (Trycyclic Antidepressants): 300 ng/mL Performed By: #### D RUGRPD #### [facility] [address] [place] [address] Dr. Lis Oakley DRUG CUT HEADER DRUG CLASS TEST SYST EM CUT-OFF CONCENTRATIONS ARE FOLLOWS: Normal [facility] Comment on above: Performed By: #### D RUGRPD #### [facility] [address] [place] [address] Dr. Lis Oakley mAMP Negative Normal NEGATIVE [facility] [facility] Comment on above: Performed By: #### D RUGRPD #### [facility] [address] [place] [address] Dr. Lis Oakley MTD Negative Normal NEGATIVE [facility] Comment on above: Performed By: #### D RUGRPD #### [facility] [address] [address] [address] Lis Oakley OPI Negative Normal NEGATIVE [facility] Comment on above: Performed By: #### D RUGRPD #### [facility] [address] [address] [address] Lis Oakley OXY Negative Normal NEGATIVE [facility] Comment on above: Performed By: #### D RUGRPD #### [facility] [address] [place] [address] Dr. Lis Oakley PCP Negative Normal NEGATIVE [facility] Comment on above: Performed By: #### D RUGRPD #### [facility] [address] [place] [address] Dr. Lis Oakley PPX Negative Normal NEGATIVE [facility] Comment on above: Performed By: #### D RUGRPD #### [facility] [address] [place] [address] Dr. Lis Oakley TCA Negative Normal NEGATIVE [facility] Comment on above: Performed By: #### D RUGRPD #### [facility] [address] [address] [address] Lis Oakley THC Negative Normal NEGATIVE [facility] Comment on above: Performed By: #### D RUGRPD #### [facility] [address] [place] [address] Dr. Lis Oakley TYPE AND SCREENon 08-27-2022 TYPE AND SCREEN Negative Normal [facility] Comment on above: Performed By: #### C BC #### [facility] [address] [place] [address] Dr. Lis Oakley US PREG GROWTHon 08-19-2022 [...] NESTOR NELSON Date: 2022-08-19 16:24 Normal [facility] GROUP B STREP CULTUREon 07-30 [...] F Tetracycline >=16 R F Normal [facility] Comment on above: Performed By: #### G BSCX #### [facility] [address] [place] [address] Dr. Lis Oakley CHLAMYDIA/GONOCOCCUS YOMI ( AB/URINE/PAPon 08-14-2022 Chlamydia trachomatis, YOMI Negative Normal Negative [facility] Comment on above: Performed By: #### C T/NGNA #### [facility] [address] [place] [address] Dr. Lis Oakley Neisseria gonorrhoeae, YOMI Negative Normal Negative [facility] Comment on above: Performed By: #### C T/NGNA #### [facility] [address] [place] [address] Dr. Lis Oakley VAGINITIS/VAGINOSIS DNA PROB Talon 08-14-2022 Marcelle species Negative Normal Negative [facility] Comment on above: Performed By: #### R UBIGG #### [facility] [address] [place] [address] Dr. Lis Oakley Gardnerella vaginalis Negative Normal Negative [facility] Comment on above: Performed By: #### R UBIGG #### [facility] [address] [place] [address] Dr. Lis Oakley Trichomonas vaginalis Negative Normal Negative [facility] Comment on above: Performed By: #### R UBIGG #### [facility] [address] [place] [address] Dr. Lis Oakley HEP B SURFACE ANTIGEN SCREEN on 07-16-2022 HBsAg Screen Negative Normal Negative [facility] Comment on above: Performed By: #### C BC #### [facility] [address] [place] [address] Dr. Lis Oakley HEPATITIS C VIRUS AB W/ REFL EX QUANTon 07-16-2022 HCV AB Non-Reactive Normal Non Reactive [facility] Comment on above: Performed By: #### C BC #### [facility] [address] [place] [address] Dr. Lis Oakley Interpretation: Comment Normal [facility] Comment on above: Result Comment: Not infected with HCV unless early or acute infection is suspected (which may be delayed in an immunocompromised individual), or other evidence exists to indicate HCV infection. Performed By: #### C BC #### [facility] [address] [place] [address] Dr. Lis Oakley HIV 1 AND 2 WITH REFLEXon HIV Screen 4th Generation wRfx Non-Reactive Normal Non Reactive [facility] Comment on above: Result Comment: HIV Negative HIV-1/HIV-2 antibodies and HIV-1 p24 antigen were NOT detected. There is no laboratory evidence of HIV infection. Performed By: #### R UBIGG #### [facility] [address] [place] [address] Dr. Lis Oakley RPR QUANTon 07-16-2022 Rapid Plasma Reagin, Quant Non-Reactive Normal NonRea<1:1 [facility] Comment on above: Result Comment: Plebasilia andrews Note: This test does not meet current guidelines for screening and diagnosis of syphilis. This test is intended for following treatment response in patients being treated for syphilis infection. To screen for syphilis infection, a reflex cascade that includes both RPR and a treponema-specific assay should be utilized, such as Treponema pallidum (Syphilis) Screening [place] (259631) or Rapid Plasma Reagin (RPR) Test With Reflex to Quantitative RPR and Confirmatory Treponema pallidum Antibodies (490727). Performed By: #### R PRQ #### [facility] [address] [place] [address] Dr. Lis Oakley RUBELLA AB IGGon 07-16-2022 Rubella Antibodies, IgG 1.94 index Normal Immune >0.99 [facility] Comment on above: Result Comment: Non- immune <0.90 Equivocal 0.90 - 0.99 Immune >0.99 Performed By: #### R UBIGG #### [facility] [address] [place] [address] Dr. Lis Oakley CBC AUTO DIFFon 07-15-2022 BASO # 0.1 103/ul Normal 0.0-0.1 [facility] Comment on above: Performed By: #### C BC #### [facility] [address] [place] [address] Dr. iLs Oakley Basophils/100 WBC (Bld) 0.5 % Normal 0.2-2.0 [facility] Comment on above: Performed By: #### C BC #### [facility] [address] [place] [address] Dr. Lis Oakley EO # 0.2 103/ul Normal 0.0-0.7 [facility] Comment on above: Performed By: #### C BC #### [facility] [address] [place] [address] Dr. Lis Oakley Eosinophils/100 WBC (Bld) 1.6 % Normal 0.9-7.0 [facility] Comment on above: Performed By: #### C BC #### [facility] [address] [place] [address] Dr. Lis Oakley Erythrocyte distribution width (RBC) [Ratio] 13.7 % Normal 11.0-15.0 [facility] Comment on above: Performed By: #### C BC #### [facility] [address] [place] [address] Dr. Lis Oakley Hematocrit (Bld) [Volume fraction] 32.0 % Critically low 36.0-48.0 [facility] Comment on above: Performed By: #### C BC #### [facility] [address] [place] [address] Dr. Lis Oakley Hemoglobin (Bld) [Mass/Vol] 10.1 g/dL Critically low 12.0-16.0 [facility] Comment on above: Performed By: #### C BC #### [facility] [address] [place] [address] Dr. Lis Oakley IG # 0.09 10e3/ul Critically high 0.00-0.[address] [facility] Comment on above: Performed By: #### C BC #### [facility] [address] [place] [address] Dr. Lis Oakley IG % 0.7 % Critically high 0.0-0.5 [facility] Comment on above: Performed By: #### C BC #### [facility] [address] [place] [address] Dr. Lis Oakley LYMPH # 2.4 103/ul Normal 1.2-3.8 [facility] Comment on above: Performed By: #### C BC #### [facility] [address] [place] [address] Dr. Lis Oakley Lymphocytes/100 WBC (Bld) 19.5 % Critically low 20.5-60.0 [facility] Comment on above: Performed By: #### C BC #### [facility] [address] [place] [address] Dr. Lis Oakley MANUAL DIFF REQ NO Normal [facility] Comment on above: Performed By: #### C BC #### [facility] [address] [place] [address] Dr. Lis Oakley MCH (RBC) [Entitic mass] 25.6 pg Critically low 26.7-34.0 [facility] Comment on above: Performed By: #### C BC #### [facility] [address] [place] [address] Dr. Lis Oakley MCHC (RBC) [Mass/Vol] 31.6 g/dL Normal 29.9-35.2 [facility] Comment on above: Performed By: #### C BC #### [facility] [address] [address] [address] Lis Oakley MCV (RBC) [Entitic vol] 81.0 fL Normal 81.0-99.0 [facility] Comment on above: Performed By: #### C BC #### [facility] [address] [place] [address] Dr. Lis Oakley MONO # 0.8 103/ul Normal 0.3-0.8 [facility] Comment on above: Performed By: #### C BC #### [facility] [address] [place] [address] Dr. Lis Oakley Monocytes/100 WBC (Bld) 6.9 % Normal 1.7-12.0 [facility] Comment on above: Performed By: #### C BC #### [facility] [address] [place] [address] Dr. Lis Oakley NEUT # 8.6 103/ul Critically high 1.4-6.5 [facility] Comment on above: Performed By: #### C BC #### [facility] [address] [place] [address] Dr. Lis Oakley Neutrophils/100 WBC (Bld) 70.8 % Normal 43.0-75.0 [facility] Comment on above: Performed By: #### C BC #### [facility] [address] [place] [address] Dr. Lis Oakley Platelet mean volume (Bld) [Entitic vol] 10.0 fL Normal 9.5-13.5 [facility] Comment on above: Performed By: #### C BC #### [facility] [address] [place] [address] Dr. Lis Oakley PLT 315 103/ul Normal 150-450 [facility] Comment on above: Performed By: #### C BC #### [facility] [address] [place] [address] Dr. Lis Oakley RBC 3.95 106/ul Critically low 4.20-5.40 [facility] Comment on above: Performed By: #### C BC #### [facility] [address] [place] [address] Dr. Lis Oakley WBC 12.2 103/ul Critically high 4.0-11.0 [facility] Comment on above: Performed By: #### C BC #### [facility] [address] [place] [address] Dr. Lis Oakley CULTURE URINEon 07-15-2022 CULTURE URINE Culture Observations : MODERATE GROWTH OF MIXED GENITAL DORIAN. NO POTENTIAL PATHOGENS SEEN. Normal [facility] Comment on above: Performed By: #### C BC #### [facility] [address] [place] [address] Dr. Lis Oakley GLYCOHEMOGLOBIN A1Con 2022 ADA RECOMMENDATION SEE BELOW Normal [facility] Comment on above: Result Comment: ADA RECOMMENDED LIMIT 4.0 - 6.0 ADA THERAPEUTIC TARGET < 7.0 ACTION SUGGESTED > 7.0 Performed By: #### C BC #### [facility] [address] [place] [address] Dr. Lis Oakley Glucose [Mass/Vol] 114 mg/dL Normal [facility] Comment on above: Performed By: #### C BC #### [facility] [address] [place] [address] Dr. Lis Oakley HbA1c (Bld) [Mass fraction] 5.6 % Normal 4.5-6.2 [facility] Comment on above: Performed By: #### C BC #### [facility] [address] [place] [address] Dr. Lis Oakley TYPE AND SCREENon 07-15-2022 TYPE AND SCREEN Negative Normal [facility] Comment on above: Performed By: #### T NS #### [facility] [address] [place], [place] [id number] Dr. Lis Oakley CBC AUTO DIFFon 06-17-2022 BASO # 0.1 103/ul Normal 0.0-0.1 [facility] Comment on above: Performed By: #### C BC #### [facility] [address] [place] [address] Dr. Lis Oakley Basophils/100 WBC (Bld) 0.5 % Normal 0.2-2.0 [facility] Comment on above: Performed By: #### C BC #### [facility] [address] [place] [address] Dr. Lis Oakley EO # 0.1 103/ul Normal 0.0-0.7 [facility] Comment on above: Performed By: #### C BC #### [facility] [address] [place] [address] Dr. Lis Oakley Eosinophils/100 WBC (Bld) 1.3 % Normal 0.9-7.0 [facility] Comment on above: Performed By: #### C BC #### [facility] [address] [place] [address] Dr. Lis Oakley Erythrocyte distribution width (RBC) [Ratio] 13.9 % Normal 11.0-15.0 [facility] Comment on above: Performed By: #### C BC #### [facility] [address] [place] [address] Dr. Lis Oakley Hematocrit (Bld) [Volume fraction] 31.8 % Critically low 36.0-48.0 [facility] Comment on above: Performed By: #### C BC #### [facility] [address] [place] [address] Dr. Lis Oakley Hemoglobin (Bld) [Mass/Vol] 10.3 g/dL Critically low 12.0-16.0 [facility] Comment on above: Performed By: #### C BC #### [facility] [address] [place] [address] Dr. Lis Oakley IG # 0.07 10e3/ul Critically high 0.00-0.[address] [facility] Comment on above: Performed By: #### C BC #### [facility] [address] [place] [address] Dr. Lis Oakley IG % 0.7 % Critically high 0.0-0.5 [facility] Comment on above: Performed By: #### C BC #### [facility] [address] [place] [address] Dr. Lis Oakley LYMPH # 1.7 103/ul Normal 1.2-3.8 [facility] Comment on above: Performed By: #### C BC #### [facility] [address] [place] [address] Dr. Lis Oakley Lymphocytes/100 WBC (Bld) 16.0 % Critically low 20.5-60.0 [facility] Comment on above: Performed By: #### C BC #### [facility] [address] [place] [address] Dr. Lis Oakley MANUAL DIFF REQ NO Normal [facility] Comment on above: Performed By: #### C BC #### [facility] [address] [place] [address] Dr. Lis Oakley MCH (RBC) [Entitic mass] 26.7 pg Normal 26.7-34.0 [facility] Comment on above: Performed By: #### C BC #### [facility] [address] [place] [address] Dr. Lis Oakley MCHC (RBC) [Mass/Vol] 32.4 g/dL Normal 29.9-35.2 [facility] Comment on above: Performed By: #### C BC #### [facility] [address] [place] [address] Dr. Lis Oakley MCV (RBC) [Entitic vol] 82.4 fL Normal 81.0-99.0 [facility] Comment on above: Performed By: #### C BC #### [facility] [address] [place] [address] Dr. Lis Oakley MONO # 0.6 103/ul Normal 0.3-0.8 [facility] Comment on above: Performed By: #### C BC #### [facility] [address] [place] [address] Dr. Lis Oakley Monocytes/100 WBC (Bld) 5.5 % Normal 1.7-12.0 [facility] Comment on above: Performed By: #### C BC #### [facility] [address] [address] [address] Lis Oakley NEUT # 8.2 103/ul Critically high 1.4-6.5 [facility] Comment on above: Performed By: #### C BC #### [facility] [address] [address] [address] Lis Oakley Neutrophils/100 WBC (Bld) 76.0 % Critically high 43.0-75.0 [facility] Comment on above: Performed By: #### C BC #### [facility] [address] [place] [address] Dr. Lis Oakley Platelet mean volume (Bld) [Entitic vol] 9.6 fL Normal 9.5-13.5 [facility] Comment on above: Performed By: #### C BC #### [facility] [address] [place] [address] Dr. Lis Oakley PLT 329 103/ul Normal 150-450 [facility] Comment on above: Performed By: #### C BC #### [facility] [address] [place] [address] Dr. Lis Oakley RBC 3.86 106/ul Critically low 4.20-5.40 [facility] Comment on above: Performed By: #### C BC #### [facility] [address] [address] [address] Lis Oakley WBC 10.7 103/ul Normal 4.0-11.0 [facility] Comment on above: Performed By: #### C BC #### [facility] [address] [place] [address] Dr. Lis Oakley GLUCOSE - 1HRon 06-17-2022 Glucose [Mass/Vol] 123 mg/dL Critically high 74-106 [facility] Comment on above: Performed By: #### R UBIGG #### [facility] [address] [place] [address] Dr. Lis Oakley US PREG ANATOMY SINGLEon [...] RADHA ARORA Date: 2022-05-29 16:12 Normal [facility] AFP MATERNAL FOR SPINA BIFID Aon 05-22-2022 AFP MoM See interpretation. Normal [facility] Comment on above: Performed By: #### A FPMAT #### [facility] [address] [address] [address] Lis Oakley AFP Value 71.3 ng/mL Normal [facility] Comment on above: Performed By: #### A FPMAT #### [facility] [address] [address] [address] Lis Oakley AFP, Serum for Spina Bifida Report Normal [facility] Comment on above: Performed By: #### A FPMAT #### [facility] [address] [address] [address] Lis Oakley Comment Comment Normal [facility] Comment on above: Result Comment: Michelle Saldaña, Ph.D., [facility] Director . References: Available Upon Request. . Multiples Of Median Cutoffs For AFP Elevations Brooks 2.5 Black 2.8 IDD 2.0 Twins 4.5 Abbreviation Definitions IDD - Insulin Dep Diabetes OSBR - Open Spina Bifida Risk . For further inquiries contact [employer] [facility] at [phone]. . This test was developed and its performance characteristics determined by [employer]. It has not been cleared or approved by the Food and Drug Administration. Performed By: #### A FPMAT #### [facility] [address] [address] [address] Lis Oakley Gest Age Collection Date 24.7 weeks Normal [facility] Comment on above: Performed By: #### A FPMAT #### [facility] [address] [address] [address] Lis Oakley Gestat, Age Based on [place] Normal [facility] Comment on above: Result Comment: 09/2022 Recalculations are not recommended when gestational dating by LMP and ultrasound are within 10 days. Performed By: #### A FPMAT #### [facility] [address] [place] [address] Dr. Lis Oakley Insulin Dep Diabetes No Normal [facility] Comment on above: Performed By: #### A FPMAT #### [facility] [address] [place] [address] Dr. Lis Oakley Interpretation Comment Normal [facility] Comment on above: Result Comment: Inte rpretation: An interpretation CANNOT be provided for this patient due to one of the following reasons: 1. Gestational age is <15 weeks. Please submit a second sample at the optimum gestational age for screening (16-18 weeks). OR 2. Gestational age is greater than 23 weeks. Performed By: #### A FPMAT #### [facility] [address] [address] [address] Lis Oakley [age][place] [age] Normal [facility] Comment on above: Performed By: #### A FPMAT #### [facility] [address] [address] [address] Lis Oakley Multiple Gestation No Normal [facility] Comment on above: Performed By: #### A FPMAT #### [facility] [address] [address] [address] Lis Oakley OSBR Risk 1 IN See interpretation. Normal [facility] Comment on above: Performed By: #### A FPMAT #### [facility] [address] [place] [address] Dr. Lis Oakley PDF . [facility] Comment on above: Performed By: #### A FPMAT #### [facility] [address] [place] [address] Dr. Lis Oakley Race [facility] Comment on above: Performed By: #### A FPMAT #### [facility] [address] [place] [address] Dr. Lsi Oakley Test Results: See interpretation. Normal [facility] Comment on above: Performed By: #### A FPMAT #### [facility] [address] [place] [address] Dr. Lis Oakley US PREG TVon 01-30-2022 [...] by: NESTOR NELSON Date: 2022-01-30 16:13 Normal [facility] Vital Signs Date Time Vital Sign Value Performing Clinician Facility 03-08-2025 08:32-0400 Body mass index (BMI) [Ratio] 38.19 kg/m2 Silvia Rivas NP [facility] Phone[facility] 03-08-2025 08:32-0400 Body weight 94.71 kg Silvia Rivas [employer] Work Phone: [facility] 03-08-2025 08:32-0400 Diastolic blood pressure 70 mm[Hg] Silvia Rivas [employer] Work Phone: [facility] 03-08-2025 08:32-0400 Systolic blood pressure 118 mm[Hg] Silvia Rivas [employer] Work Phone: [facility] 01-05-2025 11:07-0400 Body mass index (BMI) [Ratio] 35.51 kg/m2 Alessandro Zoey DO Work Phone: [facility] 01-05-2025 11:07-0400 Body weight 88.05 kg Alessandro Zoey DO Work Phone: [facility] 01-05-2025 11:07-0400 Diastolic blood pressure 64 mm[Hg] Alessandro Zoey DO Work Phone: [facility] 01-05-2025 11:07-0400 Systolic blood pressure 110 mm[Hg] Alessandro Zoey DO Work Phone: [facility] 12-05-2024 11:25-0400 Body mass index (BMI) [Ratio] 34.75 kg/m2 Alessandro Zoey DO Work Phone: [facility] 12-05-2024 11:25-0400 Body weight 86.18 kg Alessandro Zoey DO Work Phone: [facility] 12-05-2024 11:25-0400 Diastolic blood pressure 70 mm[Hg] Alessandro Zoey DO Work Phone: [facility] 12-05-2024 11:25-0400 Systolic blood pressure 118 mm[Hg] Alessandro Zoey DO Work Phone: [facility] 11-03-2024 14:18-0400 Body height 157.5 cm [facility] 11-03-2024 13:37-0400 Body mass index (BMI) [Ratio] 33.2 kg/m2 [facility] 11-03-2024 13:37-0400 Body weight 82.33 kg [facility] 11-03-2024 13:37-0400 Diastolic blood pressure 72 mm[Hg] [facility] 11-03-2024 13:37-0400 Systolic blood pressure 120 mm[Hg] [facility] 06-16-2024 09:46-0500 Body mass index (BMI) [Ratio] 28.96 kg/m2 Alessandro Zoey DO Work Phone: [facility] 06-16-2024 09:46-0500 Body weight 81.38 kg Alessandro Zoey DO Work Phone: [facility] 06-16-2024 09:46-0500 Diastolic blood pressure 74 mm[Hg] Alessandro Zoey DO Work Phone: [facility] 06-16-2024 09:46-0500 Systolic blood pressure 116 mm[Hg] Alessandro Zoey DO Work Phone: [facility] 05-22-2022 16:07-0500 Body weight 93.4416 kg ALESSANDRO ZOEY [facility] Comment on above: Performed By: #### AFPMAT #### [facility] [address] [place] [address] Dr. Lis Oakley Encounters Encounter Date Encounter Type Care Provider Facility Start: 03-08-2025 End: 03-08-2025 Kristie weberheet Silvia Rivas NP Work Phone: [facility] Start: 03-08-2025 End: 03-08-2025 Kristie Rivas NP Work Phone: [facility] Start: 03-08-2025 End: 03-08-2025 flow sheet Silvia Rivas [employer] Work Phone: [facility] Comment on above: 25 weeks gestation o f ([facility]-HCC); Second trimester ([facility]HS-HCC); Subchorionic hemorrhage in first trimester ([facility]); Diabetes mellitus screening Start: 03-08-2025 End: 03-08-2025 ambulatory SILVIA ROB Not Available Start: 02-06-2025 End: 02-06-2025 flow sheet Silvia Rivas [employer] Work Phone: [facility] Comment on above: Nausea and vomiting during ([facility]-HCC) (Primary Dx); Second trimester ([facility]); 20 weeks gestation of ([facility]) Start: 02-06-2025 End: 02-06-2025 ambulatory SILVIA ROB Not Available Start: 01-05-2025 End: 01-05-2025 Bamboo flowsheet Alessandro Zoey DO Work Phone: [facility] Start: 01-05-2025 End: 01-10-2025 Bamboo flowsheet Alessandro Zoey DO Work Phone: [facility] Start: 01-05-2025 End: 01-10-2025 Clinisync Result Encounter Alessandro Zoey DO Work Phone: [facility] Unsolicited Start: 01-05-2025 End: 01-06-2025 External Result Encounter Alessandro Zoey DO Work Phone: [facility] Unsolicited Start: 01-05-2025 End: 01-05-2025 ambulatory ALESSANDRO ZOEY Not Available Start: 01-05-2025 End: 01-05-2025 Patient encounter procedure Alessandro Zoey DO Work Phone: [facility] Start: 01-05-2025 End: 01-05-2025 Periodic preventive med est patient 18-39 yrs Alessandro Zoey DO Work Phone: [facility] Comment on above: 16 weeks gestation o f ([facility]); Second trimester ([facility] Subchorionic hemorrhage in first trimester ([facility]); Screening, , for anatomic survey ([facility]); Exposure to STD; Vaginal discharge; Well woman [...] on above: Nausea (Primary Dx); First trimester ([facility]); 12 weeks gestation of ([facility]); Nonintractable headache, unspecified chronicity pattern, unspecified headache [...] 09-02-2022 End: 09-02-2022 ambulatory NONE LISTED REQUEST Facility: Start: 08-27-2022 End: 08-31-2022 Evaluation and management of inpatient DR ESTHER CRAIN . Facility:[facility]1 Start: 08-19-2022 End: 08-20-2022 ambulatory ALESSANDRO ZOEY Facility: Start: 08-13-2022 End: 08-13-2022 ambulatory ALESSANDRO ZOEY Facility: Start: 07-15-2022 End: 07-16-2022 ambulatory ALESSANDRO ZOEY Facility: Start: 06-17-2022 End: 06-18-2022 ambulatory ALESSANDRO ZOEY Facility: Start: 05-29-2022 End: 05-30-[address] RADHA ARORA Facility:[facility] Start: 05-19-2022 End: 05-20-2022 ambulatory ALESSANDRO ZOEY Facility:[facility] Start: 02-06-2022 ambulatory NONE LISTED REQUEST Facility:[facility] Start: 01-30-2022 End: 01-31-2022 ambulatory ALESSANDRO ZOEY Facility: Procedures Date Procedure Procedure Detail Performing Clinician Start: 03-08-2025 Urnls dip stick/tabl et rgnt non-auto w/o micrscp Silvia Rob [employer]URE [employer] Work Phone: Start: 02-06-2025 Urnls dip stick/tabl et rgnt non-auto w/o micrscp Silvia Rob [employer]URE [employer]ER Work Phone: Start: 01-05-2025 RECURRENT VAGINITIS (HTRX) Alessandro Zoey DO Work Phone: Start: 01-05-2025 Urnls dip stick/tabl et rgnt non-auto w/o micrscp Alessandro Zoey DO Work Phone: Start: 01-05-2025 IGP,APTIMA HPV,AGE GDLN Alessandro Zoey DO Work Phone: Start: 01-03-2025 [...] Treatment Date Care Activity Detail Author Start: 03-22-2025 End: 03-22-2025 Patient encounter procedure 03/22/2025 1:20 PM EDT Routine HEMALATHA PEREA [address] [place] [phone] Martha Melara PA [address] [place] [address] HEMALATHA PEREA Start: 03-08-2025 End: 03-08-2026 CBC panel - Blood by Automated count CBC Lab Routine Diabetes mellitus screening Expected: 03/08/2025 (Approximate), Expires: 03/08/2026 [facility] Work Phone: Comment on above: Expected: 03/08/2025 (Approximate), Expires: 03/08/2026 Start: 03-08-2025 End: 03-08-2026 Measurement of glucose 1 hour after glucose challenge for glucose tolerance test Glucose tolerance, 1 hour Lab Routine Diabetes mellitus screening Expected: 03/08/2025 (Approximate), Expires: 03/08/2026 [facility] Comment on above: Expected: 03/08/2025 (Approximate), Expires: 03/08/2026 Start: 03-08-2025 End: 03-08-2025 Patient encounter procedure 03/08/2025 8:30 AM EDT Routine HEMALATHA PEREA [address] [place] [phone] Silvia Rivas, [employer]URE POLISHER [address] [place] [phone] Arrived HEMALATHA PEREA Comment on above: Arrived Start: 02-06-2025 End: 02-06-2025 Patient encounter procedure 02/06/2025 2:00 PM EDT Routine HEMALATHA PEREA [address] [place] [address] Martha Melara PA [address] [place] [address] HEMALATHA PEREA Start: 02-06-2025 End: 02-06-2025 Professional / ancillary services management 02/06/2025 1:00 PM EDT Ancillary Procedure [facility]ALATHA [facility]EREA [address] [place] [phone] HEMALATHA PEREA Start: 01-05-2025 End: 02-05-2025 Alpha fetoprotein, maternal Alpha fetoprotein, maternal Lab Routine 16 weeks gestation of ([facility]) Second trimester ([facility]) Expected: 01/05/2025 (Approximate), Expires: 02/05/2025 [facility] Comment on above: Expected: 01/05/2025 (Approximate), Expires: 02/05/2025 Start: 01-05-2025 End: 04-07-2025 US for US OB 14+ weeks anatomy scan Imaging Routine Screening, , for anatomic survey ([facility]) Expected: 01/05/2025, Expires: 04/07/2025 [facility] Comment on above: Expected: 01/05/2025 , Expires: 04/07/2025 Start: 01-05-2025 End: 01-05-2025 Patient encounter procedure 01/05/2025 10:50 AM EDT Routine [facility] [address] [place] [phone] Alessandro Greer, DO [address] [place] [address] [facility] Start: 12-05-2024 End: 12-05-2024 Patient encounter procedure 12/05/2024 11:10 AM EDT Routine [facility] [address] [place] [phone] Alessandro Greer, DO [address] [place] [address] [facility] Start: 11-03-2024 End: 11-03-2025 ABO/Rh ABO/Rh Lab Routine Missed menses , unspecified gestational age Expected: 11/03/2024 (Approximate), Expires: 11/03/2025 [facility] Comment on above: Expected: 11/03/2024 (Approximate), Expires: 11/03/2025 Start: 11-03-2024 End: 11-03-2025 Blood type and Indirect antibody screen panel - Blood Type and screen Lab Routine Missed menses , unspecified gestational age Expected: 11/03/2024 (Approximate), Expires: 11/03/2025 [facility] Work Phone: Comment on above: Expected: 11/03/2024 (Approximate), Expires: 11/03/2025 Start: 11-03-2024 End: 11-03-2025 Drugs of abuse panel - Urine by Screen method Rapid drug screen, urine Lab Routine , unspecified gestational age Encounter for supervision of normal first in first trimester Expected: 11/03/2024 (Approximate), Expires: 11/03/2025 [facility] Comment on above: Expected: 11/03/2024 (Approximate), Expires: 11/03/2025 Start: 06-16-2024 End: 06-16-2025 hCG, quantitative, hCG, quantitative, Lab Routine Follow-up visit after miscarriage Expected: 06/16/2024 (Approximate), Expires: 06/16/2025 [facility] Work Phone: Comment on above: Expected: 06/16/2024 (Approximate), Expires: 06/16/2025 Bacteria identified in Urine by Culture Urine culture Microbiology Routine Missed menses Ordered: 11/03/2024 [facility] Comment on above: Ordered: 11/03/2024 CBC W Auto Different ial panel - Blood CBC and differential Lab Routine Missed menses , unspecified gestational age Ordered: 11/03/2024 [facility] Comment on above: Ordered: 11/03/2024 CHLAMYDIA TRACHOMATI S (GENITO/STI) CHLAMYDIA TRACHOMATIS (GENITO/STI) Lab Routine Exposure to STD Ordered: 01/05/2025 [facility] Comment on above: Ordered: 01/05/2025 Cytology Cervical or vaginal smear or scraping study Pap Smear Pathology and Cytology Routine Well woman exam with routine gynecological exam Ordered: 01/05/2025 [facility] Comment on above: Ordered: 01/05/2025 Hemoglobin A1c/Hemoglobin.total in Blood Hemoglobin A1c Lab Routine Missed menses , unspecified gestational age Ordered: 11/03/2024 [facility] Comment on above: Ordered: 11/03/2024 Hepatitis B virus surface Ag [Presence] in Serum or Plasma by Immunoassay Hepatitis B surface antigen Lab Routine Missed menses , unspecified gestational age Ordered: 11/03/2024 [facility] Comment on above: Ordered: 11/03/2024 Hepatitis C virus Ab [Presence] in Serum or Plasma by Immunoassay Hepatitis C antibody Lab Routine Missed menses , unspecified gestational age Ordered: 11/03/2024 [facility] Comment on above: Ordered: 11/03/2024 HIV-1/HIV-2 antigen/antibody combination immunoassay HIV-1 and HIV-2 antibodies Lab Routine Missed menses , unspecified gestational age Ordered: 11/03/2024 [facility] Comment on above: Ordered: 11/03/2024 Neisseria gonorrhoea e DNA [Presence] in Unspecified specimen by [facility] with probe detection Neisseria gonorrhea DNA probe, direct Lab Routine Exposure to STD Ordered: 01/05/2025 [facility] Comment on above: Ordered: 01/05/2025 Reagin Ab [Presence] in Serum by RPR RPR Lab Routine Missed menses , unspecified gestational age Ordered: 11/03/2024 [facility] Comment on above: Ordered: 11/03/2024 Rubella antibody, IgG Rubella an tibody, IgG Lab Routine Missed menses , unspecified gestational age Ordered: 11/03/2024 [facility] Comment on above: Ordered: 11/03/2024 SURESWAB(R) ADVANCED VAGINITIS PLUS, TMA SURESWAB(R) ADVANCED VAGINITIS PLUS, TMA Pathology and Cytology Routine Vaginal discharge Ordered: 01/05/2025 [facility] Work Phone: Comment on above: Ordered: 01/05/2025 Payers Date Payer Category Payer Private Health Insurance [id number] 2000 Unknown [id number] 2.16.84 [id number] 2000 Unknown [id number] 2.16.84 0.1.016348.3.579.2.593 2000 Unknown [id number] 2.16.84 0.1.747735.3.579.2.593 2000 Unknown [id number] 2.16.84 0.1.657236.3.579.2.593 2000 Unknown [id number] 2.16.84 0.1.990623.3.579.2.593 2000 Unknown [id number] 2.16.84 0.1.283681.3.579.2.593 2000 Unknown [id number] 2.16.84 0.1.519313.3.579.2.593 2000 Unknown [id number] 2.16.84 0.1.448935.3.579.2.593 2000 Unknown [id number] 2.16.84 0.1.445035.3.579.2.593 2000 Unknown [id number] 2.16.84 0.1.214498.3.579.2.593 2000 Unknown [id number] 2.16.8 40.1.906186.3.579.2.1259 2000 Unknown [id number] 2.16.8 40.1.245811.3.579.2.1259 2000 Unknown [id number] 2.16.8 40.1.049192.3.579.2.1259 2000 Unknown [id number] 2.16.8 40.1.838662.3.579.2.1259 2000 Unknown [id number] 2.16.8 40.1.028851.3.579.2.1259 2000 Unknown [id number] 2.16.8 40.1.957236.3.579.2.1259 2000 Unknown [id number] 2.16.8 40.1.081375.3.579.2.1259 2000 Unknown [id number] 2.16.8 40.1.102941.3.579.2.1259 2000 Unknown [id number] 2.16.84 0.1.884176.3.579.2.1259 1959 Self-pay 1959 Unknown [id number] 1959 Unknown [id number] Social History Date Type Detail Facility Tobacco smoking stat [facility] Tobacco smoking consumption unknown [facility] Start: 2000 Sex assigned at Not on file [facility] Gender identity Not on file [facility] Start: 09-26-2024 [facility] Clinical Notes 08-27-2022 to 03-08-2025 Silvia Rivas NP - 03/08/2025 8:30 AM Musa Rivas NP - 02/06/2025 2:00 PM Renee Covarrubias LPN - 01/05/2025 10:50 AM ANNELIESE Malagon - 12/05/2024 11:10 AM EDT Note Date & Type Note Facility 03-08-2025 History of Presen t illness Narrative Reason for Appointment: Patient ID: Lisa Anderson is a 24 y.o. female who presents for Routine Visit Patient presents today for Return OB appointment. MEDICATIONS Current Outpatient Medications Medication Instructions ondansetron (ZOFRAN) 4 mg, Oral, Every 6 hours PRN, Take 1 tablet by mouth every 6 hours as needed for nausea. MV-Min-Fe Fum-FA-DHA ( 1 PO) Take by [...] nursing note reviewed. Exam conducted with a sales trader present. Vitals: Estimated body mass index is 38.19 kg/m as calculated from the following: Height as of 11/03/25: 5' 2 . Weight as of this encounter: 208 lb 12.8 oz. BP: 118/70 Patient's last menstrual period was 09/06/2024. ASSESSMENT & PLAN ICD-10-CM 1. 25 weeks gestation of ([facility]) Z3A.25 POCT urinalysis dipstick manually resulted 2. Second trimester ([facility]) Z34.92 POCT urinalysis dipstick manually resulted 3. Subchorionic hemorrhage in first trimester ([facility]) O20.8 4. Diabetes mellitus screening Z13.1 CBC Glucose tolerance, 1 hour CBC Glucose tolerance, 1 hour Return OB: Patient presents today for a routine obstetrics appointment. Patient is currently 25w2d . Patient states she is doing well but has complaints of being tired due to current . Patient has verbalizes frequent movement. Patient was given 1 hour Glucose test and CBC to have completed. Orders Placed This Encounter Procedures CBC Glucose tolerance, 1 hour POCT urinalysis dipstick manually resulted Follow Up: Patient is to return to office in 4 week for routine OB appointment. Documented by Rachel Worley LPN on behalf of: Silvia Rivas NP documented in this encounter [facility] 02-06-2025 History of Presen t illness Narrative Reason for Appointment: Patient ID: Lisa Anderson is a 24 y.o. female who presents for Routine Visit Patient presents today for Return OB appointment. MEDICATIONS Current Outpatient Medications Medication Instructions ondansetron (ZOFRAN) 4 mg, Oral, Every 6 hours PRN, Take 1 tablet by mouth every 6 hours as needed for nausea. MV-Min-Fe Fum-FA-DHA ( 1 PO) Take by [...] Eyes: Negative. Respiratory: Negative. Cardiovascular: Negative. Gastrointestinal: Positive for nausea and vomiting. Nausea and vomiting associated with migraine headache Genitourinary: Negative. Musculoskeletal: Negative. Skin: Negative. Neurological: [...] nursing note reviewed. Exam conducted with a sales trader present. Vitals: Estimated body mass index is 35.51 kg/m as calculated from the following: Height as of 11/03/24: 5' 2 . Weight as of 01/05/25: 194 lb 1.9 oz. BP: Patient's last menstrual period was 09/06/2024. ASSESSMENT & PLAN ICD-10-CM 1. Nausea and vomiting during ([facility]) O21.9 ondansetron (Zofran) 4 MG tablet 2. Second trimester ([facility]) Z34.92 POCT urinalysis dipstick manually resulted 3. 20 weeks gestation of ([facility]) Z3A.20 Return OB: Patient presents today for a routine obstetrics appointment. Patient is currently 21w0d . Patient states she is doing well but has complaints of being tired due to current . Patient has verbalizes frequent movement. labor precautions was discussed/given and patient was instructed to perform kick counts three times a day. Orders Placed This Encounter Procedures POCT urinalysis dipstick manually resulted Follow Up: Patient is to return to office in 4 week for routine OB appointment. Documented by Silvia Rivas NP on behalf of: Silvia Rivas NP documented in this encounter [facility] 01-05-2025 History of Presen t illness Narrative [...] nursing note reviewed. Exam conducted with a sales trader present. Vitals: Estimated body mass index is 35.51 kg/m as calculated from the following: Height as of 25: 5' 2 . Weight as of this encounter: 194 lb 1.9 oz. BP: 110/64 Patient's last menstrual period was 09/06/2024. ASSESSMENT & PLAN ICD-10-CM 1. 16 weeks gestation of ([facility]) Z3A.16 POCT urinalysis dipstick manually resulted Alpha fetoprotein, maternal Alpha fetoprotein, maternal 2. Second trimester ([facility]) Z34.92 POCT urinalysis dipstick manually resulted Alpha fetoprotein, maternal Alpha fetoprotein, maternal 3. Subchorionic hemorrhage in first trimester ([facility]) O20.8 4. Screening, , for anatomic survey ([facility]) Z36.89 US OB 14+ weeks anatomy scan [...] Alessandro Greer DO documented in this encounter [facility] 12-05-2024 History of Presen t illness Narrative [...] calculated from the following: Height as of 11/03/24: 5' 2 . Weight as of this encounter: 190 lb. BP: 118/70 Patient's last menstrual period was 09/06/2024. ASSESSMENT & PLAN ICD-10-CM 1. Nausea R11.0 ondansetron ODT (Zofran-ODT) 4 MG disintegrating tablet 2. First trimester ([facility]) Z34.91 POCT urinalysis dipstick manually resulted 3. 12 weeks gestation of ([facility]) Z3A.12 Return OB: Patient presents today for [...] Alessandro Greer DO documented in this encounter [facility] 11-03-2024 History of Presen t illness Narrative [...] or undercooked meat, and stay away from [facility]. Patient has also been advised to not [...] Elizabeth Tsang MA documented in this encounter [facility] 06-16-2024 History of Presen t illness Narrative [...] nursing note reviewed. Exam conducted with a sales trader present. Vitals: Estimated body mass index is [...] Alessandro Greer DO documented in this encounter [facility] 08-27-2022 Note OPERATIVE NOTE OPERATION DATE: 08/28/2022 PROCEDURE: Primary low transverse section. PREOPERATIVE DIAGNOSIS: 1. Intrauterine at 39 weeks. 2. Failure to dilate. 3. Failure to descend. POSTOPERATIVE DIAGNOSIS: 1. Intrauterine at 39 weeks. 2. Failure to dilate. 3. Failure to descend. ANESTHESIA: Spinal. SURGEON: Alessandro Greer D.O. CAFE ASSOCIATE: GABY Lou URINE OUTPUT: Yellow and clear. [...] the Recovery Room in stable condition. [facility] 08-27-2022 Note DISCHARGE SUMMARY NOTE DATE: 09/18/2022 [...] free and no longer on narcotics. [facility] Evaluation note Diagnosis Miscarriage Unspecified spontaneous without mention of complication Follow-up visit after miscarriage [facility] Diagnosis Missed menses , unspecified gestational age Encounter for supervision of normal first in first trimester [facility]* Diagnosis Nausea- Primary Nausea alone First trimester ([facility]) state, incidental 12 weeks gestation of ([facility]) Nonintractable headache, unspecified chronicity pattern, unspecified headache type [facility] Diagnosis 16 weeks gestation of ([facility]) Second trimester ([facility]) state, incidental Subchorionic hemorrhage in first trimester ([facility]) Screening, , for anatomic survey ([facility]) Encounter for anatomic survey Exposure to STD Vaginal discharge Leukorrhea, not specified as infective Well woman exam with routine gynecological exam Routine gynecological examination documented [facility] Diagnosis Nausea and vomiting during ([facility])- Primary Second trimester ([facility]) state, incidental 20 weeks gestation of ([facility]) documented [facility] Diagnosis 25 weeks gestation of ([facility]) Second trimester ([facility]) state, incidental Subchorionic hemorrhage in first trimester ([facility]) Diabetes mellitus screening Screening for diabetes mellitus documented in this encounter [facility] Summary Purpose Family History No Family History Records FoundNo Family History Records Found Advance Directives No Advanced Directives Records FoundNo Advanced Directives Records Found Additional Source Comments INFORMATION SOURCE (unrecogn ized section and content) DATE CREATED AUTHOR 09/25/2022 [facility] DATE CREATED AUTHOR AUTHOR'S ORGANIZ ATION 03/10/2025 [facility] EPIC Reason for Visit (unrecogniz ed [...] BE BASED ON THE PRIMARY CLINICAL RECORDS. [facility] [employer] [facility] provides no warranty or guarantee of the accuracy or completeness of information in this document.
[2025-03-14 09:33] LABS: Glucose 1 Hour 80 mg/dL (<130)
[2025-03-14 10:09] LABS: Hematocrit 31.7 % (36.0-48.0); Hemoglobin 10.1 g/dL (12.0-16.0); Immature Granulocytes Abs Auto 0.11 10^3/uL (0.00-0.03); Immature Granulocytes Pct Auto 1.0 % (0.0-0.5); Lymphocytes Absolute Auto 2.0 10^3/uL (1.2-3.8); Mean Corpuscular HGB Conc 31.9 g/dL (29.9-35.2); Mean Corpuscular Hemoglobin 25.6 pg (26.7-34.0); Mean Corpuscular Volume 80.5 fL (81.0-99.0); Platelet Count 304 10^3/uL (150-450); Red Blood Count 3.94 10^6/uL (4.20-5.40); White Blood Count 11.0 10^3/uL (4.0-11.0)
== END 2025-03-14 08:04 | disposition home or self-care (01) ==
LOC: LAB 08:04
PROVIDERS: Visit Provider Nurse Practitioner Family
DX: Z13.1 Encounter for screening for diabetes mellitus (principal)
CPT/HCPCS: 36415; 82950; 85025

== ENCOUNTER 2025-05-23 10:25 | Outpatient (OUT) | payer OTHER, SELFPAY ==
--- OUTSIDE RECORDS SUMMARY | 2025-05-17 08:50 | XMS_ITS | Encounter Summary ---
Author Organization [facility] Address [address] [place] [address] Care Team Providers Care Elevator Adjuster Name Role Phone Unavailable Primary Care Provider Unavailabl e Reason for Visit * ReasonCommentsRoutine Visit Encounter Details DateTypeDepartmentCare Team (Latest Contact Info)Auehpjxzqcj84/17/2025 8:50 AM ESTRoutine [facility] [address] [place] [address] Silvia Rivas NP [address] [place] [address] Upper respiratory infection, acute (Primary Dx); Third trimester ([facility]); 35 weeks gestation of ([facility]) Social History Tobacco UseTypesPacks/DayYears UsedDateSmoking Tobacco: Never Assessed Estimated Date of BlousmlwXmjffezuRcx65/19/2026ased on UltrasoundSex and Gender InformationValueDate RecordedSex Assigned at BirthNot on fileLegal SexFemale 08/13/2022 11:46 PM EDTGender IdentityNot on fileSexual OrientationNot on file documented as of this encounter Last Filed Vital Signs Vital SignReadingTime TakenCommentsBlood Liknmrjf930/6405/17/2025 8:40 AM EST Pulse--Temperature--Respiratory Rate--Oxygen Saturation--Inhaled Oxygen Concentration--Smrask36.4 kg (217 lb)05/17/2025 8:40 AM ESTHeight--Body Mass [...] nursing note reviewed. Exam conducted with a marketing campaign analyst present. Vitals: Estimated body mass index is 39.69 kg/m?? as calculated from the following: Height as of 11/03/24: 5' 2 . Weight as of this encounter: 217 lb. BP: 112/64 Patient's last menstrual period was 09/06/2024. Assessment/Plan ICD-10-CM 1. Third trimester ([facility]) Z34.93 2. 35 weeks gestation of ([facility]) Z3A.35 POCT urinalysis dipstick manually resulted Assessment/Plan [...] Plan of Treatment DateTypeDepartmentCare Team (Latest Contact Info)Pymjktjsfey67/31/2025 11:20 AM ESTRoutine [facility] [address] [place] [address] Silvia Rivas NP [address] [place] [address] documented as of this encounter Procedures Procedure NamePriorityDate/TimeAssociated DiagnosisCommentsPOCT URINALYSIS MPFPWQCRDahejwd57/17/2025 8:50 AM EST 35 weeks gestation of ([facility]) documented in this encounter Results * (ABNORMAL) [...] / LateralityCollection Method / VolumeCollection Time Received KfpdJnrzu40/17/2025 8:50 AM EST Narrative Authorizing ProviderResult TypeResult StatusSilvia Rivas NPPOINT OF CARE TEST ENTER/EDIT ORDERABLESFinal Result documented in this encounter Visit Diagnoses Diagnosis Upper respiratory infection, acute- Primary Third trimester ([facility]) state, incidental 35 weeks gestation of ([facility]) documented in this encounter
--- OUTSIDE RECORDS SUMMARY | 2025-05-23 09:20 | XMS_ITS | Encounter Summary ---
Author Organization [facility] Address [address] [place] [address] Care Team Providers Care Precinct Police Sergeant Name Role Phone Unavailable Primary Care Provider Unavailabl e Reason for Visit * ReasonCommentsRoutine Visit Encounter Details DateTypeDepartmentCare Team (Latest Contact Info)Vetwoonuqpg55/23/2025 9:20 AM ESTRoutine [facility] [place] [facility] [address] [place] [phone] Martha Melara PA [address] [place] [phone] 36 weeks gestation of ([facility]); Third trimester ([facility]); Other migraine with status migrainosus, not intractable; Constipation, unspecified constipation type; Dizziness Social History Tobacco UseTypesPacks/DayYears UsedDateSmoking Tobacco: Never Assessed Estimated Date of PfbyctbjVqholuiqUmp90/19/2026Based on UltrasoundSex and Gender InformationValueDate RecordedSex Assigned at BirthNot on fileLegal SexFemale 08/13/2022 11:46 PM EDTGender IdentityNot on fileSexual OrientationNot on file documented as of this encounter Last Filed Vital Signs Vital SignReadingTime TakenCommentsBlood Kmeawgcv587/7805/23/2025 9:41 AM EST Pulse--Temperature--Respiratory Rate--Oxygen Saturation--Inhaled Oxygen Concentration--Smbqwy36.5 kg (217 lb 1.9 oz)05/23/2025 9:41 AM ESTHeight--Body Mass Index39.7106 2:18 PM EDTdocumented in this encounter Progress Notes * ANNELIESE Ye - 05/23/2025 9:20 AM EST Reason for Appointment: Patient ID: Lisa Anderson is a 25 y.o. female who presents for Routine Visit Patient presents today for Return OB appointment. MEDICATIONS Current Outpatient Medications Medication Instructions docusate sodium (COLACE) 100 mg, Oral, 2 times daily PRN iron polysaccharides (PROFE) 391.3 mg, Oral, Daily ondansetron (ZOFRAN) 4 mg, Oral, Every 6 [...] reviewed. Vitals: Estimated body mass index is 39.71 kg/m?? as calculated from the following: Height as of 11/03/24: 5' 2 . Weight as of this encounter: 217 lb 1.9 oz. BP: 120/78 Patient's last menstrual period was 09/06/2024. Assessment/Plan ICD-10-CM 1. 36 weeks gestation of ([facility]) Z3A.36 POCT urinalysis dipstick manually resulted 2. Third trimester ([facility]) Z34.93 POCT urinalysis dipstick manually resulted CULTURE, GROUP B STREP WITH SUSCEPTIBLITY CULTURE, GROUP B STREP WITH SUSCEPTIBLITY 3. Other migraine with status migrainosus, not intractable G43.801 4. Constipation, unspecified constipation type K59.00 docusate sodium (Colace) 100 MG capsule 5. Dizziness R42 CBC and differential iron polysaccharides (ProFe) 391.3 (180 Fe) MG capsule Assessment/Plan Return OB: Patient presents today for a routine obstetrics appointment. Patient is currently 36w1d . Patient states she is doing well but has complaints of being tired due to current . Patient has verbalizes frequent movement. labor precautions was discussed/given and patient was instructed to perform kick counts three times a day. Patient is doing well but has complaints of being tired and having maternal discomfort due to . Patient verbalized frequent movement and was instructed to perform kick counts three times per day. labor precautions were given, LARC consent was signed/declined, and GBS was obtained. Orders Placed This Encounter Procedures CULTURE, GROUP B STREP WITH SUSCEPTIBLITY CBC and differential POCT urinalysis dipstick manually resulted Follow Up: Patient is to return to office in 1 week for routine OB appointment Orders Placed This Encounter Procedures CULTURE, GROUP B STREP WITH SUSCEPTIBLITY CBC and differential POCT urinalysis dipstick manually resulted Follow Up: Patient is to return to office in 1 week for routine OB appointment. Documented by ANNELIESE Ye on behalf of: ANNELIESE Ye documented in this encounter Plan of Treatment DateTypeDepartmentCare Team (Latest Contact Info)Srdwtvugzgx22/31/2025 11:20 AM ESTRoutine [facility] [address] [place] [phone] Silvia Rivas, KASANDRA [address] [place] [phone] NameTypePriorityAssociated DiagnosesOrder ScheduleCULTURE, GROUP B STREP WITH SUSCEPTIBLITYLabRoutine Third trimester ([facility]) Expected: 05/23/2025, Expires: 05/23/2026BC and differentialLabRoutine Dizziness Ordered: 05/23/2025documented as of this encounter Procedures Procedure NamePriorityDate/TimeAssociated DiagnosisCommentsPOCT URINALYSIS RCEGQIOKDkpfnkw99/23/2025 9:46 AM EST 36 weeks gestation of ([facility]) Third trimester ([facility]) documented in this encounter Results * (ABNORMAL) POCT urinalysis dipstick manually resulted (05/23/2025 9:46 AM EST) ComponentValueRef RangeTest MethodAnalysis TimePerformed AtPathologist SignatureColor, UAYellowClarity, UAClearGlucose, UANegativeNegative - 2000(110) ++++ mg/dLBilirubin, UANegativeNegative - 4(70) +++ mg/dLKetones, UA NegativeNegative - 160(16) ++++ mg/dLSpec Grav, UA1.0101 - 1.03Blood, UA NegativeNegative - 50 Sukumar/mcLpH, UA7.55 - 9Protein, UAPositiveNegative - 2000(20) ++++ mg/dLUrobilinogen, UA1.00.2 - 12 mg/dLLeukocytes, UANegative Negative - 500+++ Dev/mcLNitrite, UANegativeNegative - PositiveSpecimen (Source)Anatomical Location / LateralityCollection Method / VolumeCollection TimeReceived MihgPhbbn77/23/2025 9:46 AM EST Narrative Authorizing ProviderResult TypeResult StatusMartha Melara [facility]INT [facility] CARE TEST ENTER/EDIT ORDERABLESFinal Result documented in this encounter Visit Diagnoses Diagnosis 36 weeks gestation of ([facility]) Third trimester ([facility]) state, incidental Other migraine with status migrainosus, not intractable Constipation, unspecified constipation type Dizziness Dizziness and giddiness documented in this encounter
--- OUTSIDE RECORDS SUMMARY | 2025-05-23 11:09 | XMS_ITS | Encounter Summary ---
Author Organization [facility] Address [address] [place] [address] Care Team Providers Care Analytics Intern Name Role Phone Unavailable Primary Care Provider Unavailabl e Encounter Details DateTypeDepartmentCare Team (Latest Contact Info)Kzvzjvxzqoz79/11/2025bstract HEMALATHA PEREA [address] [place] [address] Amandeep Greer DO [address] [place], [facility] Social History Tobacco UseTypesPacks/DayYears UsedDateSmoking Tobacco: Never Assessed Estimated Date of HmgzhbklFlmxqbqfFoi34/19/2026Based on UltrasoundSex and Gender InformationValueDate RecordedSex Assigned at BirthNot on fileLegal SexFemale 08/13/2022 11:46 PM EDTGender IdentityNot on fileSexual OrientationNot on file documented as of this encounter Plan of Treatment DateTypeDepartmentCare Team (Latest Contact Info)Fcykvtytqnx88/31/2025 11:20 AM ESTRoutine HEMALATHA PEREA [address] [place] [address] Silvia Rivas, KASANDRA [address] [place] [address] documented as of this encounter Visit Diagnoses Not on filedocumented in this encounter
--- OUTSIDE RECORDS SUMMARY | 2025-05-23 11:09 | XMS_ITS | Encounter Summary ---
Author Organization [facility] Address [address] [place] [address] Care Team Providers Care Position Classification Manager Name Role Phone Unavailable Primary Care Provider Unavailabl e Encounter Details DateTypeDepartmentCare Team (Latest Contact Info)Vmkcjckkhlo61/23/2025amboo flowsheet HEMALATHA PEREA [address] [place] [address] Martha Melara PA [address] [place], [facility] Social History Tobacco UseTypesPacks/DayYears UsedDateSmoking Tobacco: Never Assessed Estimated Date of IztnixjhKdurmqlzQzv61/19/2026Based on UltrasoundSex and Gender InformationValueDate RecordedSex Assigned at BirthNot on fileLegal SexFemale 08/13/2022 11:46 PM EDTGender IdentityNot on fileSexual OrientationNot on file documented as of this encounter Plan of Treatment DateTypeDepartmentCare Team (Latest Contact Info)Hvdgpufwtzd70/31/2025 11:20 AM ESTRoutine HEMALATHA PEREA [address] [address] Silvia Rivas, KASANDRA [address] [place] [address] documented as of this encounter Visit Diagnoses Not on filedocumented in this encounter
--- OUTSIDE RECORDS SUMMARY | 2025-05-23 11:09 | XMS_ITS | Encounter Summary ---
Author Organization [facility] Address [address] [facility] [place] [address] Care Team Providers Care Rn Medical Surgical Name Role Phone Unavailable Primary Care Provider Unavailabl e Encounter Details DateTypeDepartmentCare Team (Latest Contact Info)Hvtviywylsr80/17/2025amboo flowsheet HEMALATHA PEREA [address] [facility] [facility] [place] [address] Silvia Rivas, KASANDRA [address] [place] [address] Social History Tobacco UseTypesPacks/DayYears UsedDateSmoking Tobacco: Never Assessed Estimated Date of TcgepohsFkxmnjwtPqd15/19/2026Based on UltrasoundSex and Gender InformationValueDate RecordedSex Assigned at BirthNot on fileLegal SexFemale 08/13/2022 11:46 PM EDTGender IdentityNot on fileSexual OrientationNot on file documented as of this encounter Plan of Treatment DateTypeDepartmentCare Team (Latest Contact Info)Ufpjhqfahte02/31/2025 11:20 AM ESTRoutine HEMALATHA PEREA [address] [facility] [place] [address] Silvia Rivas NP [address] [place] [address] documented as of this encounter Visit Diagnoses Not on filedocumented in this encounter
--- OUTSIDE RECORDS SUMMARY | 2025-05-23 11:09 | XMS_ITS | Clinical Summary ---
Author Organization [facility] Address [address] [place] [address] Care Team Providers Care Us Customs And Border Officer Name Role Phone Unavailable Primary Care Provider Unavailabl e Allergies No known active allergies Medications MedicationSigDispense QuantityRefillsLast FilledStart DateEnd DateStatus MV-Min-Fe Fum-FA-DHA ( 1 PO) Take by mouthActive ondansetron (Zofran) 4 MG tablet Indications:Nausea and vomiting during ([facility])Take 1 tablet (4 mg) by mouth every 6 (six) hours if needed for nausea or vomiting for up to 30 doses Take 1 tablet by mouth every 6 hours as needed for nausea. 30 tablet 5Active docusate sodium (Colace) 100 MG capsule Indications:Constipation, unspecified constipation typeTake 1 capsule (100 mg) by mouth 2 (two) times a day as needed for constipation for up to 10 days 20 capsule 506Active iron polysaccharides (ProFe) 391.3 (180 Fe) MG capsule Indications:DizzinessTake 1 capsule (391.3 mg) by mouth Daily 30 capsule 516Active azithromycin (Zithromax Z-Duarte) 250 MG tablet Indications:Upper respiratory infection, acuteAs directed 6 tablet Discontinued Encounters DateTypeDepartmentCare PhqmLmtulxhpzvg64/23/2025 9:20 AM ESTRoutine [facility] [address] [place] [address] [place] [address] Martha Melara PA 36 weeks gestation of ([facility]); Third trimester ([facility]); Other migraine with status migrainosus, not intractable; Constipation, unspecified constipation type; Fevxmuumo29/23/2025amboo flowsheet [facility] [address] [place] [address] Martha Melara PA 05/17/2025 8:50 AM ESTRoutine [facility] [address] [place] [address] Silvia Rivas, KASANDRA Upper respiratory infection, acute (Primary Dx); Third trimester ([facility]); 35 weeks gestation of ([facility])05/17/2025amboo flowsheet [facility] [address] [place] [address] Silvia Rivas, KASANDRA 05/11/2025bstract [facility] [address] [address] Amandeep Greer DO 05/04/2025 9:30 AM ESTRoutine [facility] [address] [place] [address] Amandeep Greer DO Third trimester ([facility]); 33 weeks gestation of ([facility])05/04/2025amboo flowsheet [facility] [address] [facility] [place] [address] Amandeep Greer DO 04/20/2025 9:30 AM ESTRoutine [facility] [address] [address] Martha Melara PA Third trimester ([facility]); 31 weeks gestation of ([facility])04/20/2025 9:00 AM ESTAncillary Procedure [facility] [place] [facility] [address] [place] [address] size inconsistent with dates ([facility])04/05/2025 1:00 PM ESTRoutine [facility] [place] [facility] [address] [place] [address] Amandeep Greer, size inconsistent with dates ([facility]) (Primary Dx); Third trimester ([facility]); 29 weeks gestation of ([facility]); Other migraine with status migrainosus, not txaunllvnyz89/05/2025amboo flowsheet [facility] [place] [address] [place] [address] Amandeep Greer DO 03/22/2025 1:20 PM EDTRoutine [facility] [address] [facility] [place] [address] Martha Melara PA Second trimester ([facility]); 27 weeks gestation of ([facility])03/22/2025bstract [facility] [address] [facility] [place] [address] Amandeep Greer DO 03/22/2025amboo flowsheet [facility] [place] [address] [place] [address] [place] [address] Martha Melara PA 03/14/2025linisync Result Encounter NOMS External Department Unsolicited Silvia Rivas NP 03/08/2025 8:30 AM EDTRoutine [facility] [address] [facility] [place] [address] Silvia Rivas NP 25 weeks gestation of ([facility]); Second trimester ([facility]); Subchorionic hemorrhage in first trimester ([facility]); Diabetes mellitus aimchzagk21/08/2025amboo flowsheet [facility] [place] [address] [place] [address] Silvia Rivas NP from Last 3 Months Family History RelationNameStatusCommentsBrotherAliveFatherAliveMotherAliveSisterAlive Social History Tobacco UseTypesPacks/DayYears UsedDateSmoking Tobacco: Never Assessed Estimated Date of XcuhlslnFqdqwbvvKaw97/19/2026Based on UltrasoundSex and Gender InformationValueDate RecordedSex Assigned at BirthNot on fileLegal SexFemale 08/13/2022 11:46 PM EDTGender IdentityNot on fileSexual OrientationNot on file Last Filed Vital Signs Vital SignReadingTime TakenCommentsBlood Dxeptmmk097/7805/23/2025 9:41 AM EST Pulse--Temperature--Respiratory Rate--Oxygen Saturation--Inhaled Oxygen Concentration--Sxryjd73.5 kg (217 lb 1.9 oz)05/23/2025 9:41 AM UUCRswnjc511.5 cm (5' 2 )11/03/2024 2:18 PM EDTBody Mass Index39.71011/03/2024 2:18 PM EDT Plan of Treatment DateTypeDepartmentCare Team (Latest Contact Info)Bjueuuxpqrw85/31/2025 11:20 AM ESTRoutine [facility] [address] [place] [address] Silvia Rivas, MANAGER TALENT [address] [facility] [address] [place] [address] Procedures Procedure NamePriorityDate/TimeAssociated DiagnosisCommentsPOCT URINALYSIS AJTYLMMNWnozpsp65/23/2025 9:46 AM EST 36 weeks gestation of ([facility]) Third trimester ([facility]) POCT URINALYSIS GHFABQSLGolturr59/17/2025 8:50 AM EST 35 weeks gestation of ([facility]) POCT URINALYSIS TKWGVLEMGadzrsu98/04/2025 9:52 AM EST Third trimester ([facility]) OB FOLLOW UP TRANSABDOMINAL UKXTPXAKBbmawkw69/20/2025 10:12 AM EST size inconsistent with dates ([facility]) POCT URINALYSIS WITLIHHLHemymyv95/20/2025 9:51 AM EST 31 weeks gestation of ([facility]) POCT URINALYSIS GGPQWRZULcpdmle89/05/2025 1:03 PM EST 29 weeks gestation of ([facility]) POCT URINALYSIS CNHRKEGYIdvpagj11/22/2025 1:41 PM EDT Second trimester ([facility]) GLUCOSE 1 ZHZXAjcsiml11/14/2025 9:08 AM EDT POCT URINALYSIS GGQDLKSEJoomfaj16/08/2025 8:40 AM EDT 25 weeks gestation of ([facility]) Second trimester ([facility]) from Last 3 Months Results * (ABNORMAL) POCT urinalysis dipstick manually resulted (05/23/2025 9:46 AM EST) Only the most recent of7 resultswithin the time period is included. ComponentValueRef RangeTest MethodAnalysis TimePerformed AtPathologist Signature Color, UAYellowClarity, UAClearGlucose, UANegativeNegative - 2000(110) ++++ mg/dLBilirubin, UANegativeNegative - 4(70) +++ mg/dLKetones, UANegativeNegative - 160(16) ++++ mg/dLSpec Grav, UA1.0101 - 1.03Blood, UANegativeNegative - 50 Sukumar/mcLpH, UA7.55 - 9Protein, UAPositiveNegative - 2000(20) ++++ mg/dL Urobilinogen, UA1.00.2 - 12 mg/dLLeukocytes, UANegativeNegative - 500+++ Dev/mcL Nitrite, UANegativeNegative - PositiveSpecimen (Source)Anatomical Location / LateralityCollection Method / VolumeCollection TimeReceived GygtKylvm30/23/2025 9:46 AM EST Narrative Authorizing ProviderResult TypeResult StatusHudson HospitalOINT OF CARE TEST ENTER/EDIT ORDERABLESFinal Result * US OB follow up transabdominal approach (04/20/2025 10:12 AM EST)Anatomical RegionLateralityModalityBodyUltrasoundSpecimen (Source)Anatomical Location / LateralityCollection Method / VolumeCollection TimeReceived Time04/20/2025 2:57 PM EST Impressions 04/20/2025 3:15 PM EST Single, live intrauterine , current sonographic age of 32 weeks and 2 days, with an estimated date of delivery of June 13, 2025 (prior BALB[place] June 18, 2025). * ??Estimated Weight (g) by Percentile is based upon an accurate estimated age based onlast menstrual period. ?? TRANSCRIBED BY: ? ELECTRONICALLY SIGNED BY: Christophe Ramirez MD Narrative 04/20/2025 3:15 PM EST FINDINGS: Comparison February 06, 2025. A single, live intrauterine is present with normal cardiac rate of 139 beats per minute. Normal activity and amniotic fluid volume. Amniotic fluid index is 14 cm. ??Morphology is grossly normal. The current sonographic age is 32 weeks and 2 days, based on the following measurements: ?BPD ? 7.9 cm (31 weeks, 6 days) ?Head Circumference ?29.4 cm (32 weeks, 3 days) ?Abdominal Circumference ?28.4 cm (32 weeks, 3 days) ?Femur Length ?6.3 cm (32 weeks, 3 days) ?Presentation ? Transverse ? Weight (g) by Percentile ??70.2 % * (prior 66.7%) These measurements result in an estimated date of delivery of June 13, 2025. ?? The current estimated weight is 1960 grams (4 pounds, 5 ounces). ?? Procedure Note Christophe Ramirez MD - 04/20/2025 FINDINGS: Comparison February 06, 2025. A single, live intrauterine is present with normal cardiacrate of 139 beats per minute. Normal activity and amniotic fluidvolume. Amniotic fluid index is 14 cm. Morphology is grossly normal. Thecurrent sonographic age is 32 weeks and 2 days, based on the followingmeasurements: BPD 7.9 cm (31 weeks, 6 days) Head Circumference 29.4 cm (32 weeks, 3 days) Abdominal Circumference 28.4 cm (32 weeks, 3 days) Femur Length 6.3 cm (32 weeks, 3 days) Presentation Transverse Weight (g) by Percentile 70.2 % * (prior 66.7%) These measurements result in an estimated date of delivery of June. The current estimated weight is 1960 grams (4 pounds, 5ounces). IMPRESSION: Single, live intrauterine , current sonographic age of 32 weeksand 2 days, with an estimated date of delivery of June 13, 2025 (priorEDD June 18, 2025). * Estimated Weight (g) by Percentile is based upon an accurateestimated age based on last menstrual period. TRANSCRIBED BY: ELECTRONICALLY SIGNED BY: Christophe Ramirez MD Authorizing ProviderResult TypeResult StatusSilvia Rivas NPIMG OB US PROCEDURESFinal Result * GLUCOSE 1 HOUR (03/14/2025 9:08 AM EDT)ComponentValueRef RangeTest Method Analysis TimePerformed AtPathologist SignatureGLUCOSE 1 HOUR80<130 mg/dLTBH Specimen (Source)Anatomical Location / LateralityCollection Method / Volume Collection TimeReceived Time03/14/2025 9:08 AM EDT1 9:10 AM EDT Narrative [facility] - 03/14/2025 9:39 AM EDT Authorizing ProviderResult TypeResult StatusSilvia Rivas NPLAB BLOOD ORDERABLESFinal ResultPerforming OrganizationAddressCity/State/ZIP CodePhone Number [facility] from Last 3 Months Insurance
[2025-05-23 11:36] LABS: Hematocrit 29.9 % (36.0-48.0); Hemoglobin 9.2 g/dL (12.0-16.0); Immature Granulocytes Abs Auto 0.10 10^3/uL (0.00-0.03); Immature Granulocytes Pct Auto 0.9 % (0.0-0.5); Lymphocytes Absolute Auto 1.8 10^3/uL (1.2-3.8); Mean Corpuscular HGB Conc 30.8 g/dL (29.9-35.2); Mean Corpuscular Hemoglobin 23.5 pg (26.7-34.0); Mean Corpuscular Volume 76.3 fL (81.0-99.0); Platelet Count 295 10^3/uL (150-450); Red Blood Count 3.92 10^6/uL (4.20-5.40); White Blood Count 10.6 10^3/uL (4.0-11.0)
== END 2025-05-23 10:26 | disposition home or self-care (01) ==
LOC: LAB 11:06
PROVIDERS: Visit Provider Physician Assistant
DX: R42 Dizziness and giddiness (principal)
CPT/HCPCS: 36415; 85025; 87081

== ENCOUNTER 2025-05-23 20:46 | Outpatient (REF) | payer OTHER, SELFPAY ==
--- OUTSIDE RECORDS SUMMARY | 2025-05-17 08:50 | XMS_ITS | Encounter Summary ---
Author Organization [facility] Address [address] [place] [address] Care Team Providers Care Operations Officer Name Role Phone Unavailable Primary Care Provider Unavailabl e Reason for Visit * ReasonCommentsRoutine Visit Encounter Details DateTypeDepartmentCare Team (Latest Contact Info)Llvdryowtvd00/17/2025 8:50 AM ESTRoutine [facility] [address] [place] [address] Silvia Rivas NP [address] [place] [address] Upper respiratory infection, acute (Primary Dx); Third trimester ([facility]); 35 weeks gestation of ([facility]) Social History Tobacco UseTypesPacks/DayYears UsedDateSmoking Tobacco: Never Assessed Estimated Date of ZiwdknngPkgwwvbcZuq45/19/2026ased on UltrasoundSex and Gender InformationValueDate RecordedSex Assigned at BirthNot on fileLegal SexFemale 08/13/2022 11:46 PM EDTGender IdentityNot on fileSexual OrientationNot on file documented as of this encounter Last Filed Vital Signs Vital SignReadingTime TakenCommentsBlood Lanauqdv291/6405/17/2025 8:40 AM EST Pulse--Temperature--Respiratory Rate--Oxygen Saturation--Inhaled Oxygen Concentration--Dyjpbe63.4 kg (217 lb)05/17/2025 8:40 AM ESTHeight--Body Mass Index39.6906 2:18 PM EDTdocumented in this encounter Progress Notes * Silvia Rivas NP - 05/17/2025 8:50 AM EST Reason for Appointment: Patient ID: Lisa Anderson is a 25 y.o. female who presents for Routine Visit [...] nursing note reviewed. Exam conducted with a sweatband maker present. Vitals: Estimated body mass index is 39.69 kg/m?? as calculated from the following: Height as of 11/03/24: 5' 2 . Weight as of this encounter: 217 lb. BP: 112/64 Patient's last menstrual period was 09/06/2024. Assessment/Plan ICD-10-CM 1. Third trimester ([facility]) Z34.93 2. 35 weeks gestation of ([facility]) Z3A.35 POCT urinalysis dipstick manually resulted Assessment/Plan Return OB: Patient presents today for a routine obstetrics appointment. Patient is currently 35w2d . Patient states she is doing well but has complaints of being tired due to current and complaints of nasal congestion, ears feel full discussed URI symptoms over the last 7-10 day and a prescription for a zPak is sent to her pharmacy. Patient has verbalizes frequent movement. labor precautions was discussed/given and patient was instructed to perform kick counts three times a day. Orders Placed This Encounter Procedures POCT urinalysis dipstick manually resulted Follow Up: Patient is to return to office in 1 week for routine OB appointment. Documented by Silvia Rivas NP on behalf of: Silvia Rivas NP documented in this encounter Plan of Treatment DateTypeDepartmentCare Team (Latest Contact Info)Xxbrbtslmuy39/31/2025 11:20 AM ESTRoutine [facility] [address] [place] [address] Silvia Rivas NP [address] [place] [address] documented as of this encounter Procedures Procedure NamePriorityDate/TimeAssociated DiagnosisCommentsPOCT URINALYSIS FQEHLPESOawzqvo72/17/2025 8:50 AM EST 35 weeks gestation of ([facility]) documented in this encounter Results * (ABNORMAL) POCT urinalysis dipstick manually resulted (05/17/2025 8:50 AM EST) ComponentValueRef RangeTest MethodAnalysis TimePerformed AtPathologist SignatureColor, UAYellowClarity, UAClearGlucose, UANegativeNegative - 2000(110) ++++ mg/dLBilirubin, UANegativeNegative - 4(70) +++ mg/dLKetones, UA NegativeNegative - 160(16) ++++ mg/dLSpec Grav, UA1.0101 - 1.03Blood, UA NegativeNegative - 50 Sukumar/mcLpH, UA6.55 - 9Protein, UATraceNegative - 2000(20) ++++ mg/dLUrobilinogen, UA1.00.2 - 12 mg/dLLeukocytes, UANegativeNegative - 500+++ Dev/mcLNitrite, UANegativeNegative - PositiveSpecimen (Source) Anatomical Location / LateralityCollection Method / VolumeCollection Time Received KvzjNuntd41/17/2025 8:50 AM EST Narrative Authorizing ProviderResult TypeResult StatusSilvia Rivas NPPOINT OF CARE TEST ENTER/EDIT ORDERABLESFinal Result documented in this encounter Visit Diagnoses Diagnosis Upper respiratory infection, acute- Primary Third trimester ([facility]) state, incidental 35 weeks gestation of ([facility]) documented in this encounter
--- OUTSIDE RECORDS SUMMARY | 2025-05-23 09:20 | XMS_ITS | Encounter Summary ---
Author Organization [facility] Address [address] [place] [address] Care Team Providers Care Collar Fuser Name Role Phone Unavailable Primary Care Provider Unavailabl e Reason for Visit * ReasonCommentsRoutine Visit Encounter Details DateTypeDepartmentCare Team (Latest Contact Info)Njjrouittnz49/23/2025 9:20 AM ESTRoutine [facility] [place] [facility] [address] [place] [phone] Martha Melara PA [address] [place] [phone] 36 weeks gestation of ([facility]); Third trimester ([facility]); Other migraine with status migrainosus, not intractable; Constipation, unspecified constipation type; Dizziness Social History Tobacco UseTypesPacks/DayYears UsedDateSmoking Tobacco: Never Assessed Estimated Date of CftpbcqbEzrexwxjGpo48/19/2026Based on UltrasoundSex and Gender InformationValueDate RecordedSex Assigned at BirthNot on fileLegal SexFemale 08/13/2022 11:46 PM EDTGender IdentityNot on fileSexual OrientationNot on file documented as of this encounter Last Filed Vital Signs Vital SignReadingTime TakenCommentsBlood Gqzeulyk645/7805/23/2025 9:41 AM EST Pulse--Temperature--Respiratory Rate--Oxygen Saturation--Inhaled Oxygen Concentration--Qwoyes68.5 kg (217 lb 1.9 oz)05/23/2025 9:41 AM [...] Plan of Treatment DateTypeDepartmentCare Team (Latest Contact Info)Jtnmiizebxc99/31/2025 11:20 AM ESTRoutine [facility] [address] [place] [phone] Silvia Rivas, KASANDRA [address] [place] [address] NameTypePriorityAssociated DiagnosesOrder ScheduleCULTURE, GROUP B STREP WITH SUSCEPTIBLITYLabRoutine Third trimester ([facility]) Expected: 05/23/2025, Expires: 05/23/2026BC and differentialLabRoutine Dizziness Ordered: 05/23/2025documented as of this encounter Procedures Procedure NamePriorityDate/TimeAssociated DiagnosisCommentsPOCT URINALYSIS LVPAJRJGSzxuwxg52/23/2025 9:46 AM EST 36 weeks gestation of ([facility]) Third trimester ([facility] [...] Location / LateralityCollection Method / VolumeCollection TimeReceived ShobVrszl20/23/2025 9:46 AM EST Narrative Authorizing ProviderResult TypeResult StatusMartha Melara [facility]EROINT OF CARE TEST ENTER/EDIT ORDERABLESFinal Result documented in this encounter Visit Diagnoses Diagnosis 36 weeks gestation of ([facility]) Third trimester ([facility]) state, incidental Other migraine with status migrainosus, not intractable Constipation, unspecified constipation type Dizziness Dizziness and giddiness documented in this encounter
--- OUTSIDE RECORDS SUMMARY | 2025-05-23 20:50 | XMS_ITS | Encounter Summary ---
Author Organization [facility] Address [address] [facility] [place] [address] Care Team Providers Care Tube Inspector Name Role Phone Unavailable Primary Care Provider Unavailabl e Encounter Details DateTypeDepartmentCare Team (Latest Contact Info)Wrlzgcagdzv59/17/2025amboo flowsheet HEMALATHA PEREA [address] [place] [place] [address] Silvia Rivas, KASANDRA [address] [place] [address] Social History Tobacco UseTypesPacks/DayYears UsedDateSmoking Tobacco: Never Assessed Estimated Date of KhegzblaVbdpizxdGsc44/19/2026Based on UltrasoundSex and Gender InformationValueDate RecordedSex Assigned at BirthNot on fileLegal SexFemale 08/13/2022 11:46 PM EDTGender IdentityNot on fileSexual OrientationNot on file documented as of this encounter Plan of Treatment DateTypeDepartmentCare Team (Latest Contact Info)Norrpfyglar50/31/2025 11:20 AM ESTRoutine HEMALATHA PEREA [address] [place] [address] Slivia Rivas NP [address] [place] [address] documented as of this encounter Visit Diagnoses Not on filedocumented in this encounter
--- OUTSIDE RECORDS SUMMARY | 2025-05-23 20:50 | XMS_ITS | Encounter Summary ---
Author Organization [facility] Address [address] [place] [address] Care Team Providers Care Travel Accommodations Rater Name Role Phone Unavailable Primary Care Provider Unavailabl e Encounter Details DateTypeDepartmentCare Team (Latest Contact Info)Purzwuhpgfh65/11/2025bstract HEMALATHA PEREA [address] [place] [address] Amandeep Greer DO [address] [facility] [address] [place], [facility] [address] Social History Tobacco UseTypesPacks/DayYears UsedDateSmoking Tobacco: Never Assessed Estimated Date of HcwefivfCfdjfgjhHjv08/19/2026Based on UltrasoundSex and Gender InformationValueDate RecordedSex Assigned at BirthNot on fileLegal SexFemale 08/13/2022 11:46 PM EDTGender IdentityNot on fileSexual OrientationNot on file documented as of this encounter Plan of Treatment DateTypeDepartmentCare Team (Latest Contact Info)Gxdfimsdwgj30/31/2025 11:20 AM ESTRoutine HEMALATHA PEREA [address] [place] [address] Silvia Rivas, KASANDRA [address] [facility] [place] [address] documented as of this encounter Visit Diagnoses Not on filedocumented in this encounter
--- OUTSIDE RECORDS SUMMARY | 2025-05-23 20:50 | XMS_ITS | Encounter Summary ---
Author Organization [facility] Address [address] [place] [address] Care Team Providers Care Clamp Carrier Operator Name Role Phone Unavailable Primary Care Provider Unavailabl e Encounter Details DateTypeDepartmentCare Team (Latest Contact Info)Swumsrvqmrg30/23/2025amboo flowsheet HEMALATHA PEREA [address] [facility] [place] [address] Martha Melara PA [address] [facility] [address] [place], [facility] Social History Tobacco UseTypesPacks/DayYears UsedDateSmoking Tobacco: Never Assessed Estimated Date of HomypvhhXfimqbzmWaq10/19/2026Based on UltrasoundSex and Gender InformationValueDate RecordedSex Assigned at BirthNot on fileLegal SexFemale 08/13/2022 11:46 PM EDTGender IdentityNot on fileSexual OrientationNot on file documented as of this encounter Plan of Treatment DateTypeDepartmentCare Team (Latest Contact Info)Gcjnfcfdcas68/31/2025 11:20 AM ESTRoutine HEMALATHA PEREA [address] [facility] [address] [place] [address] Silvia Rivas, KASANDRA [address] [facility] [place] [address] documented as of this encounter Visit Diagnoses Not on filedocumented in this encounter
--- OUTSIDE RECORDS SUMMARY | 2025-05-23 20:50 | XMS_ITS | Clinical Summary ---
Author Organization [facility] Address [address] [place] [address] Care Team Providers Care Ball Points Inspector Name Role Phone Unavailable Primary Care Provider Unavailabl e Allergies No known active allergies Medications MedicationSigDispense QuantityRefillsLast FilledStart DateEnd DateStatus MV-Min-Fe Fum-FA-DHA ( 1 PO) Take by mouthActive ondansetron (Zofran) 4 MG tablet Indications:Nausea and vomiting during ([facility])Take 1 tablet (4 mg) by mouth every [...] acuteAs directed 6 tablet Discontinued Encounters DateTypeDepartmentCare EchbQcmpopbbinp33/23/2025 9:20 AM ESTRoutine [facility] [address] [place] [address] [place] [address] Martha Melara PA 36 weeks gestation of ([facility]); Third trimester ([facility]); Other migraine with status migrainosus, not intractable; Constipation, unspecified constipation type; Jomtxdzpc20/23/2025linisync Result Encounter [facility] External Department Unsolicited Martha Melara PA 05/23/2025amboo flowsheet [facility] P[facility] [address] [facility] [place] [address] Martha Melara PA 05/17/2025 8:50 AM ESTRoutine [facility] [address] [facility] [place] [address] Silvia Rivas, KASANDRA Upper respiratory infection, acute (Primary Dx); Third trimester ([facility]); 35 weeks gestation of ([facility])05/17/2025amboo flowsheet [facility] P[facility]A [address] [facility] [place] [address] Silvia Rivas, KASANDRA 05/11/2025bstract [facility] P[facility] [address] [facility] [place] [address] Amandeep Greer DO 05/04/2025 9:30 AM ESTRoutine [facility] [address] [facility] [place] [address] Amandeep Greer, Third trimester ([facility]); 33 weeks gestation of ([facility])05/04/2025amboo flowsheet [facility] P[facility]A [address] [facility] [place] [address] Amandeep Greer DO 04/20/2025 9:30 AM ESTRoutine [facility] PEREA [address] [facility] [place] [address] Martha Melara PA Third trimester ([facility]); 31 weeks gestation of ([facility])04/20/2025 9:00 AM ESTAncillary Procedure [facility] P[facility]A [address] [facility] [place] [address] size inconsistent with dates ([facility])04/05/2025 1:00 PM ESTRoutine [facility] PEREA [address] [facility] [place] [address] Amandeep Greer DO size inconsistent with dates ([facility]) (Primary Dx); Third trimester ([facility]); 29 weeks gestation of ([facility]); Other migraine with status migrainosus, not abnpbtyvnnu56/05/2025amboo flowsheet [facility] OBRONNYN [address] [facility] [place] [address] Amandeep Greer DO 03/22/2025 1:20 PM EDTRoutine [facility] PEREA [address] [facility] [place] [address] Martha Melara PA Second trimester ([facility]); 27 weeks gestation of ([facility])03/22/2025bstract [facility] [place] [address] [place] [address] [place] [address] Amandeep Greer DO 03/22/2025amboo flowsheet [facility] [address] [place] [address] [place] [address] Martha Melara PA 03/14/2025linisync Result Encounter NOMS External Department Unsolicited Silvia Rivas NP 03/08/2025 8:30 AM EDTRoutine [facility] [address] [place] [address] [place] [address] Silvia Rivas NP 25 weeks gestation of ([facility]); Second trimester ([facility]); Subchorionic hemorrhage in first trimester ([facility]); Diabetes mellitus /08/2025amboo flowsheet [facility]ARRID[facility] [address] [facility] [place] [address] Silvia Rivas NP from Last 3 Months Family History RelationNameStatusCommentsBrotherAliveFatherAliveMotherAliveSisterAlive Social History Tobacco UseTypesPacks/DayYears UsedDateSmoking Tobacco: Never Assessed Estimated Date of YxpqhteqJzksioubKgm19/19/2026Based on UltrasoundSex and Gender InformationValueDate RecordedSex Assigned at BirthNot on fileLegal SexFemale 08/13/2022 11:46 PM EDTGender IdentityNot on fileSexual OrientationNot on file Last Filed Vital Signs Vital SignReadingTime TakenCommentsBlood Dowzvdri901/7805/23/2025 9:41 AM EST Pulse--Temperature--Respiratory Rate--Oxygen Saturation--Inhaled Oxygen Concentration--Pwkdtf11.5 kg (217 lb 1.9 oz)05/23/2025 9:41 AM UJMBujpak830.5 cm (5' 2 )11/03/2024 2:18 PM EDTBody Mass Index39.71011/03/2024 2:18 PM EDT Plan of Treatment DateTypeDepartmentCare Team (Latest Contact Info)Alzsacwiyjq53/31/2025 11:20 AM ESTRoutine [facility] [address] [facility] [place] [address] Silvia Rivas, KASANDRA [address] [facility] [place] [address] Procedures Procedure NamePriorityDate/TimeAssociated DiagnosisCommentsALL CBC WITH AUTO XKYXJtjvipq51/23/2025 11:15 AM EST POCT URINALYSIS HXDFJLJPVifsilg15/23/2025 9:46 AM EST 36 weeks gestation of ([facility]) Third trimester ([facility]) POCT URINALYSIS BOWEZYOBYzjfbbz59/17/2025 8:50 AM EST 35 weeks gestation of ([facility]) POCT URINALYSIS OLKEQOJJXnfooxj60/04/2025 9:52 AM EST Third trimester ([facility]) US OB FOLLOW UP TRANSABDOMINAL OYSMHVWPVrrbjxl35/20/2025 10:12 AM EST size inconsistent with dates ([facility]) POCT URINALYSIS YARHUAEYFzffzja33/20/2025 9:51 AM EST 31 weeks gestation of ([facility]) POCT URINALYSIS WMDAQSSQWwselfz37/05/2025 1:03 PM EST 29 weeks gestation of ([facility]) POCT URINALYSIS CGZBVZUKJafgllm35/22/2025 1:41 PM EDT Second trimester ([facility]) GLUCOSE 1 TYNNBbrjymb31/14/2025 9:08 AM EDT POCT URINALYSIS WCGJMWZNRtekqap14/08/2025 8:40 AM EDT 25 weeks gestation of ([facility]) Second trimester ([facility]) from Last 3 Months Results * (ABNORMAL) ALL CBC WITH AUTO DIFF (05/23/2025 11:15 AM EST)ComponentValueRef RangeTest MethodAnalysis TimePerformed AtPathologist SignatureTBH WBC10.64.0 - 11.0 10 3/uLTBHTBH RBC3.92(L)4.20 - 5.40 10 6/uLTBHTBH HGB9.2(L)12.0 - 16.0 g/dLTBHTBH HCT29.9(L)36.0 - 48.0 %TBHTBH MCV76.3(L)81.0 - 99.0 fLTBHTBH MCH 23.5(L)26.7 - 34.0 pgTBHTBH MCHC30.829.9 - 35.2 g/dLTBHTBH RDW16.1(H)11.0 - 15.0 %TBHTBH RGF684507 - 450 10 3/uLTBHTBH MPV10.19.5 - 13.5 fLTBHNEUTROPHILS PERCENT AUTO73.643.0 - 75.0 %TBHLYMPHOCYTES PERCENT AUTO17.1(L)20.5 - 60.0 % TBHMONOCYTES PERCENT AUTO6.71.7 - 12.0 %TBHTBH EO %1.20.9 - 7.0 %TBHBASOPHILS PERCENT AUTO0.50.2 - 2.0 %TBHIMMATURE GRANULOCYTES PCT AUTO0.9(H)0.0 - 0.5 % TBHNEUTROPHILS ABSOLUTE AUTO7.8(H)1.4 - 6.5 10 3/uLTBHLYMPHOCYTES ABSOLUTE AUTO1.81.2 - 3.8 10 3/uLTBHMONOCYTES ABSOLUTE AUTO0.70.3 - 0.8 10 3/uLTBHTBH EO #0.10.0 - 0.7 10 3/uLTBHBASOPHILS ABSOLUTE AUTO0.10.0 - 0.1 10 3/uLTBH IMMATURE GRANULOCYTES ABS AUTO0.10(H)0.00 - 0.03 10 3/uLTBHSpecimen (Source) Anatomical Location / LateralityCollection Method / VolumeCollection Time Received Time05/23/2025 11:15 AM EST05/23/2025 11:20 AM EST Narrative [facility] - 05/23/2025 11:46 AM EST Authorizing ProviderResult TypeResult StatusAmy Kelton PACLINISYNCFinal Result Performing OrganizationAddressCity/State/ZIP CodePhone Number [facility] * (ABNORMAL) POCT urinalysis dipstick manually resulted (05/23/2025 9:46 AM EST) Only the most recent of7 resultswithin the time period is included. ComponentValueRef RangeTest MethodAnalysis TimePerformed AtPathologist Signature Color, UAYellowClarity, UAClearGlucose, UANegativeNegative - 1999(110) ++++ mg/dLBilirubin, UANegativeNegative - 4(70) +++ mg/dLKetones, UANegativeNegative - 160(16) ++++ mg/dLSpec Grav, UA1.0101 - 1.03Blood, UANegativeNegative - 50 Sukumar/mcLpH, UA7.55 - 9Protein, UAPositiveNegative - 2000(20) ++++ mg/dL Urobilinogen, UA1.00.2 - 12 mg/dLLeukocytes, UANegativeNegative - 500+++ Dev/mcL Nitrite, UANegativeNegative - PositiveSpecimen (Source)Anatomical Location / LateralityCollection Method / VolumeCollection TimeReceived EpzqOsxha23/23/2025 9:46 AM EST Narrative Authorizing ProviderResult TypeResult StatusMartha Melara BANNER MD [facility] OF CARE TEST ENTER/EDIT ORDERABLESFinal Result * [...] BLOOD ORDERABLESFinal ResultPerforming OrganizationAddressCity/State/ZIP CodePhone Number [facility] from Last 3 Months Insurance
--- OUTSIDE RECORDS SUMMARY | 2025-05-23 20:50 | XMS_ITS ---
Author Organization [facility] Source Produ ction (ClinicalSummary Clone) Address Unknown Care Team Providers Care Foreclosure Home Inspector Name Role Phone Unavailable Primary Care Physician Unavailab le Results * [UNITY] ANEUPLOIDY NIPT Performed by: Confer Component Value Range Date Fraction 7.8% 01/09/2025 04:38 am UTCRh(D) NIPTRhD XIMRFDKX31/11/2025 04:38 am UTCSex Chromosome AneuploidyNOT FKFPEKJA57/11/2025 04:38 am UTCMonosomy XLOW RISK <1 in 04:38 am UTCTrisomy 13LOW RISK <1 in 04:38 am UTCTrisomy 18LOW RISK <1 in 04:38 am UTCTrisomy 21LOW RISK <1 in 04:38 am UTCFetal VkkTIOEKJ13/11/2025 04:38 am UTCPregnancy FwclbcawlPMPUZZQMY71/11/2025 04:38 am UTCFor detailed report, see PDFSee PDF 01/09/2025 04:38 am UTC01/09/2025 04:38 am UTC Social History Observation Value Start Date End Date
--- OUTSIDE RECORDS SUMMARY | 2025-05-23 20:50 | XMS_ITS | Encounter Summary ---
Author Organization [facility] Address [address] [place] [address] Care Team Providers Care Denture Packer Name Role Phone Unavailable Primary Care Provider Unavailabl e Encounter Details DateTypeDepartmentCare Team (Latest Contact Info)Khaszubtxrv95/23/2025linisync Result Encounter [facility] Unsolicited Martha Melara PA [address] [place], [facility] Social History Tobacco UseTypesPacks/DayYears UsedDateSmoking Tobacco: Never Assessed Estimated Date of FvnuwkbfRdvyftptCdz68/19/2026Based on UltrasoundSex and Gender InformationValueDate RecordedSex Assigned at BirthNot on fileLegal SexFemale 08/13/2022 11:46 PM EDTGender IdentityNot on fileSexual OrientationNot on file documented as of this encounter Plan of Treatment DateTypeDepartmentCare Team (Latest Contact Info)Ivolulutarr64/31/2025 11:20 AM ESTRoutine [facility] Evelina PEREA [address] [place] [address] Silvia Rivas, KASANDRA [address] [place] [address] documented as of this encounter Procedures Procedure NamePriorityDate/TimeAssociated DiagnosisCommentsALL CBC WITH AUTO GYSYXbotmwr45/23/2025 11:15 AM EST documented in this encounter Results * (ABNORMAL) ALL CBC WITH AUTO DIFF (05/23/2025 11:15 AM EST)ComponentValueRef RangeTest MethodAnalysis TimePerformed AtPathologist SignatureTBH WBC10.64.0 - 11.0 10 3/uLTBHTBH RBC3.92(L)4.20 - 5.40 10 6/uLTBHTBH HGB9.2(L)12.0 - 16.0 g/dLTBHTBH HCT29.9(L)36.0 - 48.0 %TBHTBH MCV76.3(L)81.0 - 99.0 fLTBHTBH MCH 23.5(L)26.7 - 34.0 pgTBHTBH MCHC30.829.9 - 35.2 g/dLTBHTBH RDW16.1(H)11.0 - 15.0 %TBHTBH [id number] - 450 10 3/uLTBHTBH MPV10.19.5 - 13.5 [...] 11:46 AM EST Authorizing ProviderResult TypeResult StatusAmy Mylo PACLINISYNCFinal Result Performing OrganizationAddressCity/State/ZIP CodePhone Number CLINIS[facility]NC [facility] documented in this encounter Visit Diagnoses Not on filedocumented in this encounter
== END 2025-05-23 20:47 | disposition home or self-care (01) ==
LOC: LAB 20:46
PROVIDERS: Visit Provider Physician Assistant
DX: Z34.93 Encounter for supervision of normal pregnancy, unspecified, third trimester (principal)